=== PATIENT | female | born 1995 | race Caucasian/White ===

== ENCOUNTER 2019-02-20 07:36 | Emergency (ER) | payer SELFPAY ==
[~2019-02-20] VITALS: Ht 160 cm; Wt 59.0 kg
--- OUTSIDE RECORDS SUMMARY | 2019-02-20 07:41 | XMS REPORT ---
Author Author [facility] [employer] [facility] Medical Staff Organization [facility] [employer] [facility] Address [address] [place], [place] [address] Phone [phone] Summary purpose TRANSITION OF CARE AUTO GENERATION Chief Complaint and Reason for Visit Admit Diagnosis 1 FEM GENITAL SYMPTOMS NOS Problem list No authorized problems tracked for continuity of care are available for this visit. Encounters No authorized problems tracked for encounter diagnoses are available for this visit. Medications No home medications recorded for this patient visit Allergies, adverse reactions, alerts Allergen Category Ingredient Status Reaction Severity Onset No known drug allergies No known drug allergies No known drug allergies Confirmed or Verified Immunizations No immunizations recorded for this patient visit Relevant diagnostic tests and/or laboratory data RESULTS Routine Urinalysis [id number]:00:00 Result Normal Range Units Color YELLOW Clarity Clear Specific [place] 1.028 pH 5.5 4.5-8.0 Glucose NEGATIVE Bilirubin NEGATIVE Ketones NEGATIVE Protein NEGATIVE Urobilinogen 0.2 0-0.2 E.U./dL Nitrites NEGATIVE Blood NEGATIVE Leukocytes NEGATIVE WBCs 0-5 RBCs 0-5 Squamous Epithelial 1+ Bacteria Occasional Mucous Occasional Routine Cultures [id number]:30:00 Result Normal Range Units Cervical/ Vaginal/ Urethral See Comments Plate Date and Time 01/30/2015 20:27 SourceVAGINAL CULTURE REPORT Rare Amount Apparent Normal Ange Release Date/Time: 01/31/2015 07:19 CULTURE REPORT Moderate Amount Apparent Normal Ange Release Date/Time: 02/01/2015 07:55 CULTURE REPORT Moderate Amount Apparent Normal Ange Release Date/Time: 02/02/2015 07:44 GRAM STAIN Rare Amount Squamous Epithelial Cells Occasional Gram Positive Evan Release Date/Time: 01/31/2015 09:05 Microbiology [id number]:30:00 Result Normal Range Units LILY No Yeast Seen Wet [place] No Clue Cells, Trichomonas or Yeast Seen. Reference Lab (Sendout) [id number]:30:00 Result Normal Range Units Chlamydia Trachomatis DNA NOT DETECTED NOT DETECTED Neisseria Gonorrhea DNA NOT DETECTED NOT DETECTED Notes SEE NOTE This test was performed using the APTIMA COMBO2 Assay ([employer] The analytical performance characteristics of this assay, when used to test SurePath specimens have been determined by [facility]. TEST PERFORMED AT: [facility] [address] [place] [address] DAYNA JAMES DO,MPH Body Fluid [id number]:00 Result Normal Range Units pH 5.5 4.5-8.0 Reference Lab (Sendout) [id number]:30:00 Result Normal Range Units Chlamydia Trachomatis DNA NOT DETECTED NOT DETECTED Neisseria Gonorrhea DNA NOT DETECTED NOT DETECTED Notes SEE NOTE This test was performed using the APTIMA COMBO2 Assay ([employer] The analytical performance characteristics of this assay, when used to test SurePath specimens have been determined by [facility]. TEST PERFORMED AT: [facility] [address] [place] [address] DAYNA JAMES DO,MPH History of procedures Procedure Code Code Type Description Date Performed Performing Physician 08406 CPT-4 URINALYSIS, AUTO W/SCOPE 01-30-2015 BERNADETTE FELTON 54851 CPT-4 URINE TEST 01-30-2015 BERNADETTE FELTON 71099 CPT-4 SMEAR, WET [place], SALINE/INK 01-30-2015 BERNADETTE FELTON 82932 CPT-4 SMEAR, GRAM STAIN 01-30-2015 BERNADETTE FELTON 65022 CPT-4 CULTURE, BACTERIA, OTHER 01-30-2015 BERNADETTE FELTON 39907 CPT-4 SMEAR, WET MOUNT, SALINE/INK 01-30-2015 BERNADETTE FELTON 55792 CPT-4 CHYLMD TRACH, DNA, AMP PROBE 01-30-2015 BERNADETTE FELTON J2360 CPT-4 ORPHENADRINE INJECTION 01-30-2015 BERNADETTE FELTON J1885 CPT-4 TORADOL SYR 30MG/ML 01-30-2015 BERNADETTE FELTON 06039 CPT-4 EMERGENCY DEPT VISIT 01-30-2015 BERNADETTE FELTON 07214 CPT-4 THER/PROPH/DIAG INJ, SC/IM 01-30-2015 BERNADETTE FELTON 02379 CPT-4 EMERGENCY DEPT VISIT 01-30-2015 BERNADETTE FELTON Functional status Functional Status Finding Observation Time Diet regular 48-34-659700:45 Abdomen Appearance flat 06-75-212876:45 Abdomen soft 58-65-603334:45 Bowel Sounds present 56-69-864705:45 [place] no 78-45-753317:45 Quality sym/unlabored 79-98-220720:45 Cough absent 60-05-904016:45 Airway natural 17-19-119801:45 Oxygen no 79-38-395903:45 Temp >100.4 no 49-95-151887:45 Temp <96.8 no 00-78-152189:45 Chills with rigors no :45 HR > 90bpm no :45 Respirations > 20 no :45 Systolic <90 no :45 headache stiff neck no :45 Rapid Resp no 21-76-811221:45 Nursing Note Discharge instructions reviewed with pt-verbalized understanding. VS obtianed, dc in good condition and ambulatory. 98-76-104595:35 Vital signs Type Value Date Respiration Rate 18breaths per minute 68-61-939826:30 Pulse 83beats per minute :30 Oxygen Saturation 100% 83-28-653001:30 BP Systolic 112mmHg 59-72-515720:30 BP Diastolic 82mmHg 56-23-060841:30 Temperature 98.4F 91-65-939133:30 Height 64inches 46-33-639032:30 Weight 112LB 89-35-282139:30 Social history Type Value Smoking Status CURRENT EVERY DAY SMOKER Treatment Plan No treatment plan text is available for this visit. Hospital discharge instructions Dismissal Condition good Disposition on DC home DC Inst/Educ Give yes Flu Vac none
--- OUTSIDE RECORDS SUMMARY | 2019-02-20 07:41 | XMS REPORT | Clinical Summary ---
Author Author Admin, DIMAS Organization [facility] Address Unknown Phone Unavailable Allergies, Adverse Reactions, Alerts Allergy Name Reaction Description Start Date Severity Status Provider NKDA Critical Active Dinorah Yumiko Conditions or Problems Problem Name Problem Code Onset Date Status Entry Date Provider Comment Standard Description Annotate Shingles 053.9 Active Ousmane MENDIOLA Herpes zoster without mention of complication Amenorrhea, secondary 626.0 Active Alexa Payan MD Absence of menstruation Underweight 783.22 Resolved Dinorah Calderon Underweight Skin rash 782.1 Active Galen Mixon MD Rash and other nonspecific skin eruption Influenza like illness 487.1 Active Suhail Kaye MD Influenza with other respiratory manifestations Acne 706.1 Active Alexa Payan MD Other acne Polycystic ovary syndrome 256.4 Active Alexa Payan MD Polycystic ovaries Contraceptive management V25.09 Active Alexa Payan MD Encounter for other general counseling and advice on contraceptive management BMI 21-21.9 Active Dinorah Calderon Body Mass Index between 19-24, adult ROUTINE GYNECOLOGICAL EXAMINATION V72.31 Active Alexa Payan MD Routine gynecological examination Preconception counseling V26.49 Active Alexa Payan MD Other procreative management counseling and advice Underweight ICD-783.22 Inactive Dinorah Calderon Medication List Medication Instructions Start Date Stop Date Generic Name NDC Status Provider Patient Instruction PROMETRIUM 200 MG ORAL CAPSULE two tabs PO qhs x 10 days PROGESTERONE MICRONIZED 91856342999 Active Alexa Payan MD Active METFORMIN HCL 500 MG ORAL TABLET two tabs PO BID METFORMIN HCL 46701110005 Active Alexa Payan MD Active DIFLUCAN 150 MG ORAL TABLET 1 tablet by mouth daily FLUCONAZOLE 60688708971 No Longer Active Alexa Payan MD Active DOXYCYCLINE MONOHYDRATE 100 MG ORAL CAPSULE 1 tablet daily for cystic acne DOXYCYCLINE MONOHYDRATE 95079142772 No Longer Active Alexa Payan MD Active CONCEPT DHA 53.5-38-1 MG ORAL CAPSULE one tab PO daily PRENAT- [id number]-AY-OMEGA 3 68112465528 Active Alexa Payan MD Active SPRINTEC 28 0.25-35 MG-MCG ORAL TABLET 1 pill by mouth daily 2018 NORGESTIMATE-ETH ESTRADIOL 58772368127 No Longer Active Alexa Payan MD Active PROMETRIUM 200 MG ORAL CAPSULE two tabs PO qhs x 10 days PROGESTERONE MICRONIZED 50469294940 No Longer Active Alexa Payan MD Active PERMETHRIN 5 % EXTERNAL CREAM apply neck to toes tonight and then rinse off in morning. repeat at 7 days PERMETHRIN 31116195034 No Longer Active Suhail Kaye MD Active PREDNISONE 20 MG ORAL TABLET 2 tabs daily for 3 days, 1 tab daily for 3 days, 1/2 tab daily for 2 days PREDNISONE 89018805492 No Longer Active Galen Mixon MD Active PROVERA 10 MG ORAL TABLET 1 tablet by mouth daily MEDROXYPROGESTERONE ACETATE 06103515390 No Longer Active Stefanie Silva LPN Active BENADRYL 25 MG ORAL CAPSULE 1 po q8hr PRN Congestion DIPHENHYDRAMINE HCL 55301118740 No Longer Active Dinorah Calderon Active ACYCLOVIR 800 MG ORAL TABLET 1 tab PO tid x 5 days ACYCLOVIR 37267008276 No Longer Active Dinorah Calderon Active ACYCLOVIR 800 MG ORAL TABLET 1 tab PO tid x 5 days ACYCLOVIR 800 MG ORAL TABLET 227434 ACYCLOVIR Inactive BENADRYL 25 MG ORAL CAPSULE 1 po q8hr PRN Congestion BENADRYL 25 MG ORAL CAPSULE DIPHENHYDRAMINE HCL Inactive PERMETHRIN 5 % EXTERNAL CREAM apply neck to toes tonight and then rinse off in morning. repeat at 7 days PERMETHRIN 5 % EXTERNAL CREAM 204663 PERMETHRIN Inactive SPRINTEC 28 0.25-35 MG-MCG ORAL TABLET 1 pill by mouth daily 2018 SPRINTEC 28 0.25-35 MG-MCG ORAL TABLET 519868 NORGESTIMATE-ETH ESTRADIOL Inactive DOXYCYCLINE MONOHYDRATE 100 MG ORAL CAPSULE 1 tablet daily for cystic acne DOXYCYCLINE MONOHYDRATE 100 MG ORAL CAPSULE 5147347 DOXYCYCLINE MONOHYDRATE Inactive DIFLUCAN 150 MG ORAL TABLET 1 tablet by mouth daily DIFLUCAN 150 MG ORAL TABLET 735075 FLUCONAZOLE Inactive PROVERA 10 MG ORAL TABLET 1 tablet by mouth daily PROVERA 10 MG ORAL TABLET 5715021 MEDROXYPROGESTERONE ACETATE Inactive PREDNISONE 20 MG ORAL TABLET 2 tabs daily for 3 days, 1 tab daily for 3 days, 1/2 tab daily for 2 days PREDNISONE 20 MG ORAL TABLET 704607 PREDNISONE Inactive PROMETRIUM 200 MG ORAL CAPSULE two tabs PO qhs x 10 days PROMETRIUM 200 MG ORAL CAPSULE 257360 PROGESTERONE MICRONIZED Inactive Vital Signs Date Name Value Unit Range Description blood pressure, diastolic 71 mm[Hg] BP [place] blood pressure, systolic 134 mm[Hg] BP sys pulse rate E&M 96 /min Heart rate temperature E&M 99.2 [degF] Body temperature weight E&M 135 [lb_av] Weight Measured blood pressure, diastolic 74 mm[Hg] BP [place] blood pressure, systolic 127 mm[Hg] BP sys height E&M 67 [in_us] Bdy height pulse rate E&M 84 /min Heart rate weight E&M 134 [lb_av] Weight Measured Diagnostic Results Date Name Value Unit Range Description Lab Report: Chlamydia/GC APTIMA/87270 - Lab chlamydia DNA probe NOT DETECTED NOT DETECTED Lab Report: Chlamydia/GC APTIMA/72550 - Microbiology Neisseria gonorrhoeae DNA probe NOT DETECTED NOT DETECTED Office Visit: Amenorrhea - Chemistry human chorionic gonadotropin, urine, qualitative (urine test) Negative Encounters Code Encounter Date Provider Facility CPT-03137 Level 4 Est. Patient 15:18:41 CDT Alexa Payan MD [facility] CPT-25731 Level 4 Est. Patient 16:00:10 CDT Alexa Payan MD [facility] CPT-82090 Level 3 Est. Patient 20:13:14 EQUIPMENT MANAGER Suhail Kaey MD [facility] CPT-72532 Level 3 Est. Patient 15:25:26 EQUIPMENT MANAGER Galen Mixon MD [facility] CPT-56515 Level 3 Est. Patient 18:43:55 CDT Ousmane MENDIOLA [facility] Procedures Code Procedure Name Date Entry Date Standard Description CPT-11950 Prv Med Est Pt 18-39yrs 11:00:53 EQUIPMENT MANAGER CPT-51691 Sono pelvis non OB uterus ovaries cervix - XRAY USE ONLY 15:50:30 CDT CPT-OV Office Visit 12:15:53 CDT
--- OUTSIDE RECORDS SUMMARY | 2019-02-20 07:42 | XMS REPORT | Clinical Summary ---
Author Author Admin, DIMAS Organization [facility] Address Unknown Phone Unavailable Allergies, Adverse Reactions, [...] PO qhs x 10 days PROGESTERONE MICRONIZED 26400316258 Active Alexa Payan MD Active METFORMIN HCL 500 MG ORAL TABLET two tabs PO BID METFORMIN HCL 49183571339 Active Alexa Payan MD Active DIFLUCAN 150 MG ORAL TABLET 1 tablet by mouth daily FLUCONAZOLE 96830821799 No Longer Active Alexa Payan MD Active DOXYCYCLINE MONOHYDRATE 100 MG ORAL CAPSULE 1 tablet daily for cystic acne DOXYCYCLINE MONOHYDRATE 16937409345 No Longer Active Alexa aPyan MD Active CONCEPT DHA 53.5-38-1 MG ORAL CAPSULE one tab PO daily PRENAT- [id number]-VC-OMEGA 3 43636968569 Active Alexa Payan MD Active SPRINTEC 28 0.25-35 MG-MCG ORAL TABLET 1 pill by mouth daily 2018 NORGESTIMATE-ETH ESTRADIOL 65349234638 No Longer Active Alexa Payan MD Active PROMETRIUM 200 MG ORAL CAPSULE two tabs PO qhs x 10 days PROGESTERONE MICRONIZED 65605153338 No Longer Active Alexa Payan MD Active PERMETHRIN 5 % EXTERNAL CREAM apply neck to toes tonight and then rinse off in morning. repeat at 7 days PERMETHRIN 39363235098 No Longer Active Suhail Kaye MD Active PREDNISONE 20 MG ORAL TABLET 2 tabs daily for 3 days, 1 tab daily for 3 days, 1/2 tab daily for 2 days PREDNISONE 65510629418 No Longer Active Galen Mixon MD Active PROVERA 10 MG ORAL TABLET 1 tablet by mouth daily MEDROXYPROGESTERONE ACETATE 54974226648 No Longer Active Stefanie Silva LPN Active BENADRYL 25 MG ORAL CAPSULE 1 po q8hr PRN Congestion DIPHENHYDRAMINE HCL 86170175519 No Longer Active Dinorah Calderon Active ACYCLOVIR 800 MG ORAL TABLET 1 tab PO tid x 5 days ACYCLOVIR 49011245638 No Longer Active Dinorah Yumiko Active ACYCLOVIR 800 MG ORAL TABLET 1 tab PO tid x 5 days ACYCLOVIR 800 MG ORAL TABLET 128618 ACYCLOVIR Inactive BENADRYL 25 MG ORAL CAPSULE 1 po q8hr PRN Congestion BENADRYL 25 MG ORAL CAPSULE DIPHENHYDRAMINE HCL Inactive PERMETHRIN 5 % EXTERNAL CREAM apply neck to toes tonight and then rinse off in morning. repeat at 7 days PERMETHRIN 5 % EXTERNAL CREAM 130185 PERMETHRIN Inactive SPRINTEC 28 0.25-35 MG-MCG ORAL TABLET 1 pill by mouth daily 2018 SPRINTEC 28 0.25-35 MG-MCG ORAL TABLET 503294 NORGESTIMATE-ETH ESTRADIOL Inactive DOXYCYCLINE MONOHYDRATE 100 MG ORAL CAPSULE 1 tablet daily for cystic acne DOXYCYCLINE MONOHYDRATE 100 MG ORAL CAPSULE 6928522 DOXYCYCLINE MONOHYDRATE Inactive DIFLUCAN 150 MG ORAL TABLET 1 tablet by mouth daily DIFLUCAN 150 MG ORAL TABLET 752508 FLUCONAZOLE Inactive PROVERA 10 MG ORAL TABLET 1 tablet by mouth daily PROVERA 10 MG ORAL TABLET 3261655 MEDROXYPROGESTERONE ACETATE Inactive PREDNISONE 20 MG ORAL TABLET 2 tabs daily for 3 days, 1 tab daily for 3 days, 1/2 tab daily for 2 days PREDNISONE 20 MG ORAL TABLET 758952 PREDNISONE Inactive PROMETRIUM 200 MG ORAL CAPSULE two tabs PO qhs x 10 days PROMETRIUM 200 MG ORAL CAPSULE 043361 PROGESTERONE MICRONIZED Inactive Vital Signs Date Name [...] Value Unit Range Description Lab Report: Chlamydia/GC APTIMA/87968 - Lab chlamydia DNA probe NOT DETECTED NOT DETECTED Lab Report: Chlamydia/GC APTIMA/99707 - Microbiology Neisseria gonorrhoeae DNA probe NOT DETECTED NOT DETECTED Office Visit: Amenorrhea - Chemistry human chorionic gonadotropin, urine, qualitative (urine test) Negative Encounters Code Encounter Date Provider Facility CPT-69256 Level 4 Est. Patient 15:18:41 CDT Alexa Payan MD [facility] CPT-89063 Level 4 Est. Patient 16:00:10 CDT Alexa Payan MD [facility] CPT-46051 Level 3 Est. Patient 20:13:14 PRIMARY SCHOOL TEACHER Suhail Kaye MD [facility] CPT-43183 Level 3 Est. Patient 15:25:26 PRIMARY SCHOOL TEACHER Galen Mixon MD [facility] CPT-87228 Level 3 Est. Patient 18:43:55 CDT Ousmane MENDIOLA [facility] -[facility] Procedures Code Procedure Name Date Entry Date Standard Description CPT-68876 Prv Med Est Pt 18-39yrs 11:00:53 PRIMARY SCHOOL TEACHER CPT-00664 Sono pelvis non OB uterus ovaries cervix - XRAY USE ONLY 15:50:30 CDT CPT-OV Office Visit 12:15:53 CDT
--- OUTSIDE RECORDS SUMMARY | 2019-02-20 07:42 | XMS REPORT | Clinical Summary ---
Author Author Admin, DIMAS Organization [facility] Address Unknown Phone Unavailable Allergies, Adverse Reactions, [...] Polycystic ovaries Contraceptive management V25.09 Active Alexa aPyan MD Encounter for other general counseling and [...] PO qhs x 10 days PROGESTERONE MICRONIZED 46676813121 Active Alexa Payan MD Active METFORMIN HCL 500 MG ORAL TABLET two tabs PO BID METFORMIN HCL 22734380809 Active Alexa Payan MD Active DIFLUCAN 150 MG ORAL TABLET 1 tablet by mouth daily FLUCONAZOLE 55250230221 No Longer Active Alexa Payan MD Active DOXYCYCLINE MONOHYDRATE 100 MG ORAL CAPSULE 1 tablet daily for cystic acne DOXYCYCLINE MONOHYDRATE 36251600084 No Longer Active Alexa Payan MD Active CONCEPT DHA 53.5-38-1 MG ORAL CAPSULE one tab PO daily PRENAT- MTFWJ-NZYW-JC-OMEGA 3 09725011577 Active Alexa Payan MD Active SPRINTEC 28 0.25-35 MG-MCG ORAL TABLET 1 pill by mouth daily 2018 NORGESTIMATE-ETH ESTRADIOL 86563702012 No Longer Active Alexa Payan MD Active PROMETRIUM 200 MG ORAL CAPSULE two tabs PO qhs x 10 days PROGESTERONE MICRONIZED 40501441325 No Longer Active Alexa Payan MD Active PERMETHRIN 5 % EXTERNAL CREAM apply neck to toes tonight and then rinse off in morning. repeat at 7 days PERMETHRIN 95809185395 No Longer Active Suhail Kaye MD Active PREDNISONE 20 MG ORAL TABLET 2 tabs daily for 3 days, 1 tab daily for 3 days, 1/2 tab daily for 2 days PREDNISONE 69865945623 No Longer Active Galen Mixon MD Active PROVERA 10 MG ORAL TABLET 1 tablet by mouth daily MEDROXYPROGESTERONE ACETATE 73175432393 No Longer Active Stefanie Silva LPN Active BENADRYL 25 MG ORAL CAPSULE 1 po q8hr PRN Congestion DIPHENHYDRAMINE HCL 79137586743 No Longer Active Dinorah Calderon Active ACYCLOVIR 800 MG ORAL TABLET 1 tab PO tid x 5 days ACYCLOVIR 84606743636 No Longer Active Dinorah Yumiko Active ACYCLOVIR 800 MG ORAL TABLET 1 tab PO tid x 5 days ACYCLOVIR 800 MG ORAL TABLET 632510 ACYCLOVIR Inactive BENADRYL 25 MG ORAL CAPSULE 1 po q8hr PRN Congestion BENADRYL 25 MG ORAL CAPSULE DIPHENHYDRAMINE HCL Inactive PERMETHRIN 5 % EXTERNAL CREAM apply neck to toes tonight and then rinse off in morning. repeat at 7 days PERMETHRIN 5 % EXTERNAL CREAM 103954 PERMETHRIN Inactive SPRINTEC 28 0.25-35 MG-MCG ORAL TABLET 1 pill by mouth daily 2018 SPRINTEC 28 0.25-35 MG-MCG ORAL TABLET 032852 NORGESTIMATE-ETH ESTRADIOL Inactive DOXYCYCLINE MONOHYDRATE 100 MG ORAL CAPSULE 1 tablet daily for cystic acne DOXYCYCLINE MONOHYDRATE 100 MG ORAL CAPSULE 8484934 DOXYCYCLINE MONOHYDRATE Inactive DIFLUCAN 150 MG ORAL TABLET 1 tablet by mouth daily DIFLUCAN 150 MG ORAL TABLET 435005 FLUCONAZOLE Inactive PROVERA 10 MG ORAL TABLET 1 tablet by mouth daily PROVERA 10 MG ORAL TABLET 6398384 MEDROXYPROGESTERONE ACETATE Inactive PREDNISONE 20 MG ORAL TABLET 2 tabs daily for 3 days, 1 tab daily for 3 days, 1/2 tab daily for 2 days PREDNISONE 20 MG ORAL TABLET 045204 PREDNISONE Inactive PROMETRIUM 200 MG ORAL CAPSULE two tabs PO qhs x 10 days PROMETRIUM 200 MG ORAL CAPSULE 465184 PROGESTERONE MICRONIZED Inactive Vital Signs Date Name [...] Value Unit Range Description Lab Report: Chlamydia/GC APTIMA/22892 - Lab chlamydia DNA probe NOT DETECTED NOT DETECTED Lab Report: Chlamydia/GC APTIMA/28912 - Microbiology Neisseria gonorrhoeae DNA probe NOT DETECTED NOT DETECTED Office Visit: Amenorrhea - Chemistry human chorionic gonadotropin, urine, qualitative (urine test) Negative Encounters Code Encounter Date Provider Facility CPT-29720 Level 4 Est. Patient 15:18:41 CDT Alexa Payan MD [facility] CPT-65006 Level 4 Est. Patient 16:00:10 CDT Alexa Payan MD [facility] CPT-85862 Level 3 Est. Patient 20:13:14 TECHNOLOGY SUPPORT ANALYST Suhail Kaye MD [facility] CPT-81720 Level 3 Est. Patient 15:25:26 TECHNOLOGY SUPPORT ANALYST Galen Mixon MD [facility] CPT-15704 Level 3 Est. Patient 18:43:55 CDT Ousmane MENDIOLA [facility] -[facility] Procedures Code Procedure Name Date Entry Date Standard Description CPT-12088 Prv Med Est Pt 18-39yrs 11:00:53 TECHNOLOGY SUPPORT ANALYST CPT-10849 Sono pelvis non OB uterus ovaries cervix - XRAY USE ONLY 15:50:30 CDT CPT-OV Office Visit 12:15:53 CDT
--- OUTSIDE RECORDS SUMMARY | 2019-02-20 07:42 | XMS REPORT | Clinical Summary ---
Author Author Admin, DIMAS Organization [facility] Address Unknown Phone Unavailable Allergies, Adverse Reactions, Alerts Allergy Name Reaction Description Start Date Severity Status Provider NKDA Critical Active Dinorah Calderon Conditions or Problems Problem Name Problem Code [...] PO qhs x 10 days PROGESTERONE MICRONIZED 94725129708 Active Alexa Payan MD Active METFORMIN HCL 500 MG ORAL TABLET two tabs PO BID METFORMIN HCL 61427594312 Active Alexa Payan MD Active DIFLUCAN 150 MG ORAL TABLET 1 tablet by mouth daily FLUCONAZOLE 25028158466 No Longer Active Alexa Payan MD Active DOXYCYCLINE MONOHYDRATE 100 MG ORAL CAPSULE 1 tablet daily for cystic acne DOXYCYCLINE MONOHYDRATE 96643127179 No Longer Active Alexa Payan MD Active CONCEPT DHA 53.5-38-1 MG ORAL CAPSULE one tab PO daily PRENAT- JQUSM-JEKW-JT-OMEGA 3 39595565429 Active Alexa Payan MD Active SPRINTEC 28 0.25-35 MG-MCG ORAL TABLET 1 pill by mouth daily 2018 NORGESTIMATE-ETH ESTRADIOL 17527468553 No Longer Active Alexa Payan MD Active PROMETRIUM 200 MG ORAL CAPSULE two tabs PO qhs x 10 days PROGESTERONE MICRONIZED 24400262424 No Longer Active Alexa Payan MD Active PERMETHRIN 5 % EXTERNAL CREAM apply neck to toes tonight and then rinse off in morning. repeat at 7 days PERMETHRIN 89216120430 No Longer Active Suhail Kaye MD Active PREDNISONE 20 MG ORAL TABLET 2 tabs daily for 3 days, 1 tab daily for 3 days, 1/2 tab daily for 2 days PREDNISONE 77093058554 No Longer Active Galen Mixon MD Active PROVERA 10 MG ORAL TABLET 1 tablet by mouth daily MEDROXYPROGESTERONE ACETATE 31903408250 No Longer Active Stefanie Silva LPN Active BENADRYL 25 MG ORAL CAPSULE 1 po q8hr PRN Congestion DIPHENHYDRAMINE HCL 67235165834 No Longer Active Dinorah Calderon Active ACYCLOVIR 800 MG ORAL TABLET 1 tab PO tid x 5 days ACYCLOVIR 92320914752 No Longer Active Dinorah Calderon Active ACYCLOVIR 800 MG ORAL TABLET 1 tab PO tid x 5 days ACYCLOVIR 800 MG ORAL TABLET 991785 ACYCLOVIR Inactive BENADRYL 25 MG ORAL CAPSULE 1 po q8hr PRN Congestion BENADRYL 25 MG ORAL CAPSULE DIPHENHYDRAMINE HCL Inactive PERMETHRIN 5 % EXTERNAL CREAM apply neck to toes tonight and then rinse off in morning. repeat at 7 days PERMETHRIN 5 % EXTERNAL CREAM 492790 PERMETHRIN Inactive SPRINTEC 28 0.25-35 MG-MCG ORAL TABLET 1 pill by mouth daily 2018 SPRINTEC 28 0.25-35 MG-MCG ORAL TABLET 194415 NORGESTIMATE-ETH ESTRADIOL Inactive DOXYCYCLINE MONOHYDRATE 100 MG ORAL CAPSULE 1 tablet daily for cystic acne DOXYCYCLINE MONOHYDRATE 100 MG ORAL CAPSULE 2190884 DOXYCYCLINE MONOHYDRATE Inactive DIFLUCAN 150 MG ORAL TABLET 1 tablet by mouth daily DIFLUCAN 150 MG ORAL TABLET 694705 FLUCONAZOLE Inactive PROVERA 10 MG ORAL TABLET 1 tablet by mouth daily PROVERA 10 MG ORAL TABLET 2938170 MEDROXYPROGESTERONE ACETATE Inactive PREDNISONE 20 MG ORAL TABLET 2 tabs daily for 3 days, 1 tab daily for 3 days, 1/2 tab daily for 2 days PREDNISONE 20 MG ORAL TABLET 604926 PREDNISONE Inactive PROMETRIUM 200 MG ORAL CAPSULE two tabs PO qhs x 10 days PROMETRIUM 200 MG ORAL CAPSULE 562927 PROGESTERONE MICRONIZED Inactive Vital Signs Date Name [...] Value Unit Range Description Lab Report: Chlamydia/GC APTIMA/05564 - Lab chlamydia DNA probe NOT DETECTED NOT DETECTED Lab Report: Chlamydia/GC APTIMA/62430 - Microbiology Neisseria gonorrhoeae DNA probe NOT DETECTED NOT DETECTED Office Visit: Amenorrhea - Chemistry human chorionic gonadotropin, urine, qualitative (urine test) Negative Encounters Code Encounter Date Provider Facility CPT-00198 Level 4 Est. Patient 15:18:41 CDT Alexa Payan MD [facility] CPT-19301 Level 4 Est. Patient 16:00:10 CDT Alexa Payan MD [facility] CPT-46513 Level 3 Est. Patient 20:13:14 NURSE STAFF Suhail Kaye MD [facility] CPT-55509 Level 3 Est. Patient 15:25:26 NURSE STAFF Galen Mixon MD [facility] CPT-94473 Level 3 Est. Patient 18:43:55 CDT Ousmane MENDIOLA [facility] -[facility] Procedures Code Procedure Name Date Entry Date Standard Description CPT-48870 Prv Med Est Pt 18-39yrs 11:00:53 NURSE STAFF CPT-83034 Sono pelvis non OB uterus ovaries cervix - XRAY USE ONLY 15:50:30 CDT CPT-OV Office Visit 12:15:53 CDT
--- OUTSIDE RECORDS SUMMARY | 2019-02-20 07:42 | XMS REPORT | Clinical Summary ---
Author Author Admin, E Organization [facility] Address Unknown Phone Unavailable Allergies, Adverse [...] PO qhs x 10 days PROGESTERONE MICRONIZED 64038957817 Active Alexa Payan MD Active METFORMIN HCL 500 MG ORAL TABLET two tabs PO BID METFORMIN HCL 15306315914 Active Alexa Payan MD Active DIFLUCAN 150 MG ORAL TABLET 1 tablet by mouth daily FLUCONAZOLE 28723068954 No Longer Active Alexa Payan MD Active DOXYCYCLINE MONOHYDRATE 100 MG ORAL CAPSULE 1 tablet daily for cystic acne DOXYCYCLINE MONOHYDRATE 46192172073 No Longer Active Alexa Payan MD Active CONCEPT DHA 53.5-38-1 MG ORAL CAPSULE one tab PO daily PRENAT- [id number]-NT-OMEGA 3 08568307895 Active Alexa Payan MD Active SPRINTEC 28 0.25-35 MG-MCG ORAL TABLET 1 pill by mouth daily 2018 NORGESTIMATE-ETH ESTRADIOL 27096585387 No Longer Active Alexa Payan MD Active PROMETRIUM 200 MG ORAL CAPSULE two tabs PO qhs x 10 days PROGESTERONE MICRONIZED 63318836180 No Longer Active Alexa Payan MD Active PERMETHRIN 5 % EXTERNAL CREAM apply neck to toes tonight and then rinse off in morning. repeat at 7 days PERMETHRIN 75469070174 No Longer Active Suhail Kaye MD Active PREDNISONE 20 MG ORAL TABLET 2 tabs daily for 3 days, 1 tab daily for 3 days, 1/2 tab daily for 2 days PREDNISONE 61672104391 No Longer Active Galen Mixon MD Active PROVERA 10 MG ORAL TABLET 1 tablet by mouth daily MEDROXYPROGESTERONE ACETATE 85137320610 No Longer Active Stefanie Silva LPN Active BENADRYL 25 MG ORAL CAPSULE 1 po q8hr PRN Congestion DIPHENHYDRAMINE HCL 93676820968 No Longer Active Dinorah Calderon Active ACYCLOVIR 800 MG ORAL TABLET 1 tab PO tid x 5 days ACYCLOVIR 97719024551 No Longer Active Dinorah Calderon Active ACYCLOVIR 800 MG ORAL TABLET 1 tab PO tid x 5 days ACYCLOVIR 800 MG ORAL TABLET 260011 ACYCLOVIR Inactive BENADRYL 25 MG ORAL CAPSULE 1 po q8hr PRN Congestion BENADRYL 25 MG ORAL CAPSULE DIPHENHYDRAMINE HCL Inactive PERMETHRIN 5 % EXTERNAL CREAM apply neck to toes tonight and then rinse off in morning. repeat at 7 days PERMETHRIN 5 % EXTERNAL CREAM 007659 PERMETHRIN Inactive SPRINTEC 28 0.25-35 MG-MCG ORAL TABLET 1 pill by mouth daily 2018 SPRINTEC 28 0.25-35 MG-MCG ORAL TABLET 459939 NORGESTIMATE-ETH ESTRADIOL Inactive DOXYCYCLINE MONOHYDRATE 100 MG ORAL CAPSULE 1 tablet daily for cystic acne DOXYCYCLINE MONOHYDRATE 100 MG ORAL CAPSULE 1486365 DOXYCYCLINE MONOHYDRATE Inactive DIFLUCAN 150 MG ORAL TABLET 1 tablet by mouth daily DIFLUCAN 150 MG ORAL TABLET 536963 FLUCONAZOLE Inactive PROVERA 10 MG ORAL TABLET 1 tablet by mouth daily PROVERA 10 MG ORAL TABLET 5469984 MEDROXYPROGESTERONE ACETATE Inactive PREDNISONE 20 MG ORAL TABLET 2 tabs daily for 3 days, 1 tab daily for 3 days, 1/2 tab daily for 2 days PREDNISONE 20 MG ORAL TABLET 483439 PREDNISONE Inactive PROMETRIUM 200 MG ORAL CAPSULE two tabs PO qhs x 10 days PROMETRIUM 200 MG ORAL CAPSULE 390974 PROGESTERONE MICRONIZED Inactive Vital Signs Date Name [...] Value Unit Range Description Lab Report: Chlamydia/GC APTIMA/81686 - Lab chlamydia DNA probe NOT DETECTED NOT DETECTED Lab Report: Chlamydia/GC APTIMA/97312 - Microbiology Neisseria gonorrhoeae DNA probe NOT DETECTED NOT DETECTED Office Visit: Amenorrhea - Chemistry human chorionic gonadotropin, urine, qualitative (urine test) Negative Encounters Code Encounter Date Provider Facility CPT-58630 Level 4 Est. Patient 15:18:41 CDT Alexa Payan MD [facility] CPT-93219 Level 4 Est. Patient 16:00:10 CDT Alexa Payan MD [facility] CPT-49307 Level 3 Est. Patient 20:13:14 BOLT CUTTER Suhail Kaye MD [facility] CPT-14564 Level 3 Est. Patient 15:25:26 BOLT CUTTER Galen Mixon MD [facility] CPT-77555 Level 3 Est. Patient 18:43:55 CDT Ousmane MENDIOLA [facility] Procedures Code Procedure Name Date Entry Date Standard Description CPT-65111 Prv Med Est Pt 18-39yrs 11:00:53 BOLT CUTTER CPT-80717 Sono pelvis non OB uterus ovaries cervix - XRAY USE ONLY 15:50:30 CDT CPT-OV Office Visit 12:15:53 CDT
--- OUTSIDE RECORDS SUMMARY | 2019-02-20 07:43 | XMS REPORT | Clinical Summary ---
Author Author Admin, DIMAS Organization [facility] Address Unknown Phone Unavailable Allergies, Adverse Reactions, [...] Generic Name NDC Status Provider Patient Instruction DIFLUCAN 150 MG ORAL TABLET 1 tablet by mouth daily FLUCONAZOLE 07554173518 Active Stefanie Silva LPN Active DOXYCYCLINE MONOHYDRATE 100 MG ORAL CAPSULE 1 tablet daily for cystic acne DOXYCYCLINE MONOHYDRATE 15509904542 No Longer Active Alexa Payan MD Active CONCEPT DHA 53.5-38-1 MG ORAL CAPSULE one tab PO daily АЛЕКСАНДРAT- QZWUR-XVOY-IS-OMEGA 3 70969823730 Active Alexa Payan MD Active METFORMIN HCL 500 MG ORAL TABLET one tab PO qhs x 1 week, then one tab PO BID x 1 week, then two tabs PO BID METFORMIN HCL 15062862115 Active Alexa Payan MD Active SPRINTEC 28 0.25-35 MG-MCG ORAL TABLET 1 pill by mouth daily 2018 NORGESTIMATE-ETH ESTRADIOL 91589290285 No Longer Active Alexa Payan MD Active PROMETRIUM 200 MG ORAL CAPSULE two tabs PO qhs x 10 days PROGESTERONE MICRONIZED 53325173217 No Longer Active Alexa Payan MD Active PERMETHRIN 5 % EXTERNAL CREAM apply neck to toes tonight and then rinse off in morning. repeat at 7 days PERMETHRIN 38419340678 No Longer Active Suhail Kaye MD Active PREDNISONE 20 MG ORAL TABLET 2 tabs daily for 3 days, 1 tab daily for 3 days, 1/2 tab daily for 2 days PREDNISONE 49996838347 No Longer Active Galen Mixon MD Active PROVERA 10 MG ORAL TABLET 1 tablet by mouth daily MEDROXYPROGESTERONE ACETATE 81757809179 No Longer Active Stefanie Silva LPN Active BENADRYL 25 MG ORAL CAPSULE 1 po q8hr PRN Congestion DIPHENHYDRAMINE HCL 44860729266 No Longer Active Dinorahleticia Calderon Active ACYCLOVIR 800 MG ORAL TABLET 1 tab PO tid x 5 days ACYCLOVIR 58194052137 No Longer Active Dinorah Yumiko Active ACYCLOVIR 800 MG ORAL TABLET 1 tab PO tid x 5 days ACYCLOVIR 800 MG ORAL TABLET 483092 ACYCLOVIR Inactive BENADRYL 25 MG ORAL CAPSULE 1 po q8hr PRN Congestion BENADRYL 25 MG ORAL CAPSULE DIPHENHYDRAMINE HCL Inactive PERMETHRIN 5 % EXTERNAL CREAM apply neck to toes tonight and then rinse off in morning. repeat at 7 days PERMETHRIN 5 % EXTERNAL CREAM 177645 PERMETHRIN Inactive SPRINTEC 28 0.25-35 MG-MCG ORAL TABLET 1 pill by mouth daily 2018 SPRINTEC 28 0.25-35 MG-MCG ORAL TABLET 565237 NORGESTIMATE-ETH ESTRADIOL Inactive DOXYCYCLINE MONOHYDRATE 100 MG ORAL CAPSULE 1 tablet daily for cystic acne DOXYCYCLINE MONOHYDRATE 100 MG ORAL CAPSULE 7532808 DOXYCYCLINE MONOHYDRATE Inactive PROVERA 10 MG ORAL TABLET 1 tablet by mouth daily PROVERA 10 MG ORAL TABLET 7654832 MEDROXYPROGESTERONE ACETATE Inactive PREDNISONE 20 MG ORAL TABLET 2 tabs daily for 3 days, 1 tab daily for 3 days, 1/2 tab daily for 2 days PREDNISONE 20 MG ORAL TABLET 510898 PREDNISONE Inactive PROMETRIUM 200 MG ORAL CAPSULE two tabs PO qhs x 10 days PROMETRIUM 200 MG ORAL CAPSULE 052450 PROGESTERONE MICRONIZED Inactive Vital Signs Date Name Value Unit Range Description blood pressure, diastolic 74 mm[Hg] BP [place] blood pressure, systolic 127 mm[Hg] BP sys height E&M 67 [in_us] Bdy height pulse rate E&M 84 /min Heart rate weight E&M 134 [lb_av] Weight Measured Diagnostic Results Date Name Value Unit Range Description Lab Report: Chlamydia/GC APTIMA/44937 - Lab chlamydia DNA probe NOT DETECTED NOT DETECTED Lab Report: Chlamydia/GC APTIMA/88757 - Microbiology Neisseria gonorrhoeae DNA probe NOT DETECTED NOT DETECTED Encounters Code Encounter Date Provider Facility CPT-73963 Level 4 Est. Patient 15:18:41 CDT Alexa Payan MD [facility] CPT-82470 Level 4 Est. Patient 16:00:10 CDT Alexa Payan MD [facility] CPT-43793 Level 3 Est. 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 Patient 15:25:26 SUPERVISOR FORMING AND TEMPERING Galen Mixon MD [facility] CPT-03182 Level 3 Est. Patient 18:43:55 CDT Ousmane MENDIOLA [facility] Procedures Code Procedure Name Date Entry Date Standard Description CPT-44606 Prv Med Est Pt 18-39yrs 11:00:53 SUPERVISOR FORMING AND TEMPERING CPT-98846 Sono pelvis non OB uterus ovaries cervix - XRAY USE ONLY 15:50:30 CDT CPT-OV Office Visit 12:15:53 CDT
--- OUTSIDE RECORDS SUMMARY | 2019-02-20 07:43 | XMS REPORT | Clinical Summary ---
Author Author Admin, DIMAS Organization [facility] Address Unknown Phone Unavailable Allergies, Adverse [...] TABLET 1 tablet by mouth daily FLUCONAZOLE 76569894436 Active Stefanie Silva LPN Active DOXYCYCLINE MONOHYDRATE 100 MG ORAL CAPSULE 1 tablet daily for cystic acne DOXYCYCLINE MONOHYDRATE 98504533312 No Longer Active Alexa Payan MD Active CONCEPT DHA 53.5-38-1 MG ORAL CAPSULE one tab PO daily [facility]- [id number]-AMZG-MR-OMEGA 3 84261464785 Active Alexa Payan MD Active METFORMIN HCL 500 MG ORAL TABLET one tab PO qhs x 1 week, then one tab PO BID x 1 week, then two tabs PO BID METFORMIN HCL 12275948047 Active Alexa Payan MD Active SPRINTEC 28 0.25-35 MG-MCG ORAL TABLET 1 pill by mouth daily 2018 NORGESTIMATE-ETH ESTRADIOL 09028635319 No Longer Active Alexa Payan MD Active PROMETRIUM 200 MG ORAL CAPSULE two tabs PO qhs x 10 days PROGESTERONE MICRONIZED 30525130379 No Longer Active Alexa Payan MD Active PERMETHRIN 5 % EXTERNAL CREAM apply neck to toes tonight and then rinse off in morning. repeat at 7 days PERMETHRIN 47789450253 No Longer Active Suhail Kaye MD Active PREDNISONE 20 MG ORAL TABLET 2 tabs daily for 3 days, 1 tab daily for 3 days, 1/2 tab daily for 2 days PREDNISONE 22886022914 No Longer Active Galen Mixon MD Active PROVERA 10 MG ORAL TABLET 1 tablet by mouth daily MEDROXYPROGESTERONE ACETATE 21616238494 No Longer Active Stefanie Silva LPN Active BENADRYL 25 MG ORAL CAPSULE 1 po q8hr PRN Congestion DIPHENHYDRAMINE HCL 87991922968 No Longer Active Dinorah Calderon Active ACYCLOVIR 800 MG ORAL TABLET 1 tab PO tid x 5 days ACYCLOVIR 38662241264 No Longer Active Dinorahleticia Calderon Active ACYCLOVIR 800 MG ORAL TABLET 1 tab PO tid x 5 days ACYCLOVIR 800 MG ORAL TABLET 039013 ACYCLOVIR Inactive BENADRYL 25 MG ORAL CAPSULE 1 po q8hr PRN Congestion BENADRYL 25 MG ORAL CAPSULE DIPHENHYDRAMINE HCL Inactive PERMETHRIN 5 % EXTERNAL CREAM apply neck to toes tonight and then rinse off in morning. repeat at 7 days PERMETHRIN 5 % EXTERNAL CREAM 948915 PERMETHRIN Inactive SPRINTEC 28 0.25-35 MG-MCG ORAL TABLET 1 pill by mouth daily 2018 SPRINTEC 28 0.25-35 MG-MCG ORAL TABLET 861981 NORGESTIMATE-ETH ESTRADIOL Inactive DOXYCYCLINE MONOHYDRATE 100 MG ORAL CAPSULE 1 tablet daily for cystic acne DOXYCYCLINE MONOHYDRATE 100 MG ORAL CAPSULE 8545095 DOXYCYCLINE MONOHYDRATE Inactive PROVERA 10 MG ORAL TABLET 1 tablet by mouth daily PROVERA 10 MG ORAL TABLET 3401187 MEDROXYPROGESTERONE ACETATE Inactive PREDNISONE 20 MG ORAL TABLET 2 tabs daily for 3 days, 1 tab daily for 3 days, 1/2 tab daily for 2 days PREDNISONE 20 MG ORAL TABLET 910236 PREDNISONE Inactive PROMETRIUM 200 MG ORAL CAPSULE two tabs PO qhs x 10 days PROMETRIUM 200 MG ORAL CAPSULE 441337 PROGESTERONE MICRONIZED Inactive Vital Signs Date Name Value Unit Range Description blood pressure, diastolic 74 mm[Hg] BP [place] blood pressure, systolic 127 mm[Hg] BP sys height E&M 67 [in_us] Bdy height pulse rate E&M 84 /min Heart rate weight E&M 134 [lb_av] Weight Measured Diagnostic Results Date Name Value Unit Range Description Lab Report: Chlamydia/GC APTIMA/29371 - Lab chlamydia DNA probe NOT DETECTED NOT DETECTED Lab Report: Chlamydia/GC APTIMA/56824 - Microbiology Neisseria gonorrhoeae DNA probe NOT DETECTED NOT DETECTED Encounters Code Encounter Date Provider Facility CPT-46532 Level 4 Est. Patient 15:18:41 CDT Alexa Payan MD [facility] CPT-33731 Level 4 Est. Patient 16:00:10 CDT Alexa Payan MD [facility] CPT-04996 Level 3 Est. Patient 20:13:14 FIGURINE MAKER Suhail Kaye MD [facility] CPT-64314 Level 3 Est. Patient 15:25:26 FIGURINE MAKER Galen Mixon MD [facility] CPT-95012 Level 3 Est. Patient 18:43:[address] [facility] Procedures Code Procedure Name Date Entry Date Standard Description CPT-20253 Prv Med Est Pt 18-39yrs 11:00:53 FIGURINE MAKER CPT-36814 Sono pelvis non OB uterus ovaries cervix - XRAY USE ONLY 15:50:30 CDT CPT-OV Office Visit 12:15:53 CDT
--- OUTSIDE RECORDS SUMMARY | 2019-02-20 07:43 | XMS REPORT | Clinical Summary ---
Author Author Admin, DIMAS Organization [facility] Address Unknown Phone Unavailable Allergies, Adverse Reactions, [...] TABLET 1 tablet by mouth daily FLUCONAZOLE 42355493186 Active Stefanie Silva LPN Active DOXYCYCLINE MONOHYDRATE 100 MG ORAL CAPSULE 1 tablet daily for cystic acne DOXYCYCLINE MONOHYDRATE 22987398552 No Longer Active Alexa Payan MD Active CONCEPT DHA 53.5-38-1 MG ORAL CAPSULE one tab PO daily АЛЕКСАНДРAT- OLVGL-QWEJ-AY-OMEGA 3 96381477952 Active Alexa Payan MD Active METFORMIN HCL 500 MG ORAL TABLET one tab PO qhs x 1 week, then one tab PO BID x 1 week, then two tabs PO BID METFORMIN HCL 89488678069 Active Alexa Payan MD Active SPRINTEC 28 0.25-35 MG-MCG ORAL TABLET 1 pill by mouth daily 2018 NORGESTIMATE-ETH ESTRADIOL 93134691706 No Longer Active Alexa Payan MD Active PROMETRIUM 200 MG ORAL CAPSULE two tabs PO qhs x 10 days PROGESTERONE MICRONIZED 17197647824 No Longer Active Alexa Payan MD Active PERMETHRIN 5 % EXTERNAL CREAM apply neck to toes tonight and then rinse off in morning. repeat at 7 days PERMETHRIN 74429798061 No Longer Active Suhail Kaye MD Active PREDNISONE 20 MG ORAL TABLET 2 tabs daily for 3 days, 1 tab daily for 3 days, 1/2 tab daily for 2 days PREDNISONE 70904953755 No Longer Active Galen Mixon MD Active PROVERA 10 MG ORAL TABLET 1 tablet by mouth daily MEDROXYPROGESTERONE ACETATE 25531190576 No Longer Active Stefanie Silva LPN Active BENADRYL 25 MG ORAL CAPSULE 1 po q8hr PRN Congestion DIPHENHYDRAMINE HCL 67780957782 No Longer Active Dinorah Yumiko Active ACYCLOVIR 800 MG ORAL TABLET 1 tab PO tid x 5 days ACYCLOVIR 84631998026 No Longer Active Dinorah Yumiko Active ACYCLOVIR 800 MG ORAL TABLET 1 tab PO tid x 5 days ACYCLOVIR 800 MG ORAL TABLET 517993 ACYCLOVIR Inactive BENADRYL 25 MG ORAL CAPSULE 1 po q8hr PRN Congestion BENADRYL 25 MG ORAL CAPSULE DIPHENHYDRAMINE HCL Inactive PERMETHRIN 5 % EXTERNAL CREAM apply neck to toes tonight and then rinse off in morning. repeat at 7 days PERMETHRIN 5 % EXTERNAL CREAM 515099 PERMETHRIN Inactive SPRINTEC 28 0.25-35 MG-MCG ORAL TABLET 1 pill by mouth daily 2018 SPRINTEC 28 0.25-35 MG-MCG ORAL TABLET 298903 NORGESTIMATE-ETH ESTRADIOL Inactive DOXYCYCLINE MONOHYDRATE 100 MG ORAL CAPSULE 1 tablet daily for cystic acne DOXYCYCLINE MONOHYDRATE 100 MG ORAL CAPSULE 5427313 DOXYCYCLINE MONOHYDRATE Inactive PROVERA 10 MG ORAL TABLET 1 tablet by mouth daily PROVERA 10 MG ORAL TABLET 1338988 MEDROXYPROGESTERONE ACETATE Inactive PREDNISONE 20 MG ORAL TABLET 2 tabs daily for 3 days, 1 tab daily for 3 days, 1/2 tab daily for 2 days PREDNISONE 20 MG ORAL TABLET 304543 PREDNISONE Inactive PROMETRIUM 200 MG ORAL CAPSULE two tabs PO qhs x 10 days PROMETRIUM 200 MG ORAL CAPSULE 225557 PROGESTERONE MICRONIZED Inactive Vital Signs Date Name Value Unit Range Description blood pressure, diastolic 74 mm[Hg] BP [place] blood pressure, systolic 127 mm[Hg] BP sys height E&M 67 [in_us] Bdy height pulse rate E&M 84 /min Heart rate weight E&M 134 [lb_av] Weight Measured Diagnostic Results Date Name Value Unit Range Description Lab Report: Chlamydia/GC APTIMA/30802 - Lab chlamydia DNA probe NOT DETECTED NOT DETECTED Lab Report: Chlamydia/GC APTIMA/04662 - Microbiology Neisseria gonorrhoeae DNA probe NOT DETECTED NOT DETECTED Encounters Code Encounter Date Provider Facility CPT-02633 Level 4 Est. Patient 15:18:41 CDT Alexa Payan MD [facility] CPT-82265 Level 4 Est. Patient 16:00:10 CDT Alexa Payan MD [facility] CPT-62670 Level 3 Est. 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 Patient 15:25:26 MILL TENDER SECOND OPERATOR Galen Mixon MD [facility] CPT-86547 Level 3 Est. Patient 18:43:55 CDT Ousmane MENDIOLA [facility] Procedures Code Procedure Name Date Entry Date Standard Description CPT-24801 Prv Med Est Pt 18-39yrs 11:00:53 MILL TENDER SECOND OPERATOR CPT-69404 Sono pelvis non OB uterus ovaries cervix - XRAY USE ONLY 15:50:30 CDT CPT-OV Office Visit 12:15:53 CDT
--- OUTSIDE RECORDS SUMMARY | 2019-02-20 07:43 | XMS REPORT | Clinical Summary ---
Author Author Admin, E Organization [facility] Address Unknown Phone Unavailable Allergies, Adverse Reactions, [...] PO qhs x 10 days PROGESTERONE MICRONIZED 32895050437 Active Alexa Payan MD Active METFORMIN HCL 500 MG ORAL TABLET two tabs PO BID METFORMIN HCL 95525681275 Active Alexa Payan MD Active DIFLUCAN 150 MG ORAL TABLET 1 tablet by mouth daily FLUCONAZOLE 36544144670 No Longer Active Alexa Payan MD Active DOXYCYCLINE MONOHYDRATE 100 MG ORAL CAPSULE 1 tablet daily for cystic acne DOXYCYCLINE MONOHYDRATE 79025681650 No Longer Active Alexa Payan MD Active CONCEPT DHA 53.5-38-1 MG ORAL CAPSULE one tab PO daily PRENAT- XBGVZ-BRHK-HV-OMEGA 3 46936051095 Active Alexa Payan MD Active SPRINTEC 28 0.25-35 MG-MCG ORAL TABLET 1 pill by mouth daily 2018 NORGESTIMATE-ETH ESTRADIOL 32989450127 No Longer Active Alexa Payan MD Active PROMETRIUM 200 MG ORAL CAPSULE two tabs PO qhs x 10 days PROGESTERONE MICRONIZED 66144536943 No Longer Active Alexa Payan MD Active PERMETHRIN 5 % EXTERNAL CREAM apply neck to toes tonight and then rinse off in morning. repeat at 7 days PERMETHRIN 08484304895 No Longer Active Suhail Kaye MD Active PREDNISONE 20 MG ORAL TABLET 2 tabs daily for 3 days, 1 tab daily for 3 days, 1/2 tab daily for 2 days PREDNISONE 08585979301 No Longer Active Galen Mixon MD Active PROVERA 10 MG ORAL TABLET 1 tablet by mouth daily MEDROXYPROGESTERONE ACETATE 85812321996 No Longer Active Stefanie Silva LPN Active BENADRYL 25 MG ORAL CAPSULE 1 po q8hr PRN Congestion DIPHENHYDRAMINE HCL 18221088887 No Longer Active Dinorah Calderon Active ACYCLOVIR 800 MG ORAL TABLET 1 tab PO tid x 5 days ACYCLOVIR 34607162051 No Longer Active Dinorah Calderon Active ACYCLOVIR 800 MG ORAL TABLET 1 tab PO tid x 5 days ACYCLOVIR 800 MG ORAL TABLET 462874 ACYCLOVIR Inactive BENADRYL 25 MG ORAL CAPSULE 1 po q8hr PRN Congestion BENADRYL 25 MG ORAL CAPSULE DIPHENHYDRAMINE HCL Inactive PERMETHRIN 5 % EXTERNAL CREAM apply neck to toes tonight and then rinse off in morning. repeat at 7 days PERMETHRIN 5 % EXTERNAL CREAM 120658 PERMETHRIN Inactive SPRINTEC 28 0.25-35 MG-MCG ORAL TABLET 1 pill by mouth daily 2018 SPRINTEC 28 0.25-35 MG-MCG ORAL TABLET 802923 NORGESTIMATE-ETH ESTRADIOL Inactive DOXYCYCLINE MONOHYDRATE 100 MG ORAL CAPSULE 1 tablet daily for cystic acne DOXYCYCLINE MONOHYDRATE 100 MG ORAL CAPSULE 1081933 DOXYCYCLINE MONOHYDRATE Inactive DIFLUCAN 150 MG ORAL TABLET 1 tablet by mouth daily DIFLUCAN 150 MG ORAL TABLET 548895 FLUCONAZOLE Inactive PROVERA 10 MG ORAL TABLET 1 tablet by mouth daily PROVERA 10 MG ORAL TABLET 6225414 MEDROXYPROGESTERONE ACETATE Inactive PREDNISONE 20 MG ORAL TABLET 2 tabs daily for 3 days, 1 tab daily for 3 days, 1/2 tab daily for 2 days PREDNISONE 20 MG ORAL TABLET 236345 PREDNISONE Inactive PROMETRIUM 200 MG ORAL CAPSULE two tabs PO qhs x 10 days PROMETRIUM 200 MG ORAL CAPSULE 194933 PROGESTERONE MICRONIZED Inactive Vital Signs Date Name [...] Value Unit Range Description Lab Report: Chlamydia/GC APTIMA/74755 - Lab chlamydia DNA probe NOT DETECTED NOT DETECTED Lab Report: Chlamydia/GC APTIMA/32123 - Microbiology Neisseria gonorrhoeae DNA probe NOT DETECTED NOT DETECTED Office Visit: Amenorrhea - Chemistry human chorionic gonadotropin, urine, qualitative (urine test) Negative Encounters Code Encounter Date Provider Facility CPT-51847 Level 4 Est. Patient 15:18:41 CDT Alexa Payan MD [facility] CPT-88219 Level 4 Est. Patient 16:00:10 CDT Alexa Payna MD [facility] CPT-97096 Level 3 Est. 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 Patient 15:25:26 OIL WELL SERVICE OPERATOR HELPER Galen Mixon MD [facility] CPT-14616 Level 3 Est. Patient 18:43:55 CDT Ousmane MENDIOLA [facility] Procedures Code Procedure Name Date Entry Date Standard Description CPT-74322 Prv Med Est Pt 18-39yrs 11:00:53 OIL WELL SERVICE OPERATOR HELPER CPT-63547 Sono pelvis non OB uterus ovaries cervix - XRAY USE ONLY 15:50:30 CDT CPT-OV Office Visit 12:15:53 CDT
--- OUTSIDE RECORDS SUMMARY | 2019-02-20 07:43 | XMS REPORT | Clinical Summary ---
Author Author Admin, DIMAS Organization [facility] Address Unknown Phone Unavailable Allergies, Adverse Reactions, [...] TABLET 1 tablet by mouth daily FLUCONAZOLE 83433098397 Active Stefanie Silva LPN Active DOXYCYCLINE MONOHYDRATE 100 MG ORAL CAPSULE 1 tablet daily for cystic acne DOXYCYCLINE MONOHYDRATE 14366912921 No Longer Active Alexa Payan MD Active CONCEPT DHA 53.5-38-1 MG ORAL CAPSULE one tab PO daily АЛЕКСАНДРAT- BMHOX-WFWY-UU-OMEGA 3 44674879023 Active Alexa Payan MD Active METFORMIN HCL 500 MG ORAL TABLET one tab PO qhs x 1 week, then one tab PO BID x 1 week, then two tabs PO BID METFORMIN HCL 81279139493 Active Alexa Payan MD Active SPRINTEC 28 0.25-35 MG-MCG ORAL TABLET 1 pill by mouth daily 2018 NORGESTIMATE-ETH ESTRADIOL 74085644864 No Longer Active Alexa Payan MD Active PROMETRIUM 200 MG ORAL CAPSULE two tabs PO qhs x 10 days PROGESTERONE MICRONIZED 93710632009 No Longer Active Alexa Payan MD Active PERMETHRIN 5 % EXTERNAL CREAM apply neck to toes tonight and then rinse off in morning. repeat at 7 days PERMETHRIN 31537142873 No Longer Active Suhail Kaye MD Active PREDNISONE 20 MG ORAL TABLET 2 tabs daily for 3 days, 1 tab daily for 3 days, 1/2 tab daily for 2 days PREDNISONE 10190205065 No Longer Active Galen Mixon MD Active PROVERA 10 MG ORAL TABLET 1 tablet by mouth daily MEDROXYPROGESTERONE ACETATE 31380210527 No Longer Active Stefanie Silva LPN Active BENADRYL 25 MG ORAL CAPSULE 1 po q8hr PRN Congestion DIPHENHYDRAMINE HCL 86255837607 No Longer Active Dinorah Yumiko Active ACYCLOVIR 800 MG ORAL TABLET 1 tab PO tid x 5 days ACYCLOVIR 64618828073 No Longer Active Dinorah Yumiko Active ACYCLOVIR 800 MG ORAL TABLET 1 tab PO tid x 5 days ACYCLOVIR 800 MG ORAL TABLET 100973 ACYCLOVIR Inactive BENADRYL 25 MG ORAL CAPSULE 1 po q8hr PRN Congestion BENADRYL 25 MG ORAL CAPSULE DIPHENHYDRAMINE HCL Inactive PERMETHRIN 5 % EXTERNAL CREAM apply neck to toes tonight and then rinse off in morning. repeat at 7 days PERMETHRIN 5 % EXTERNAL CREAM 235600 PERMETHRIN Inactive SPRINTEC 28 0.25-35 MG-MCG ORAL TABLET 1 pill by mouth daily 2018 SPRINTEC 28 0.25-35 MG-MCG ORAL TABLET 022337 NORGESTIMATE-ETH ESTRADIOL Inactive DOXYCYCLINE MONOHYDRATE 100 MG ORAL CAPSULE 1 tablet daily for cystic acne DOXYCYCLINE MONOHYDRATE 100 MG ORAL CAPSULE 3198347 DOXYCYCLINE MONOHYDRATE Inactive PROVERA 10 MG ORAL TABLET 1 tablet by mouth daily PROVERA 10 MG ORAL TABLET 6302112 MEDROXYPROGESTERONE ACETATE Inactive PREDNISONE 20 MG ORAL TABLET 2 tabs daily for 3 days, 1 tab daily for 3 days, 1/2 tab daily for 2 days PREDNISONE 20 MG ORAL TABLET 315892 PREDNISONE Inactive PROMETRIUM 200 MG ORAL CAPSULE two tabs PO qhs x 10 days PROMETRIUM 200 MG ORAL CAPSULE 551574 PROGESTERONE MICRONIZED Inactive Vital Signs Date Name Value Unit Range Description blood pressure, diastolic 74 mm[Hg] BP [place] blood pressure, systolic 127 mm[Hg] BP sys height E&M 67 [in_us] Bdy height pulse rate E&M 84 /min Heart rate weight E&M 134 [lb_av] Weight Measured Diagnostic Results Date Name Value Unit Range Description Lab Report: Chlamydia/GC APTIMA/13328 - Lab chlamydia DNA probe NOT DETECTED NOT DETECTED Lab Report: Chlamydia/GC APTIMA/16796 - Microbiology Neisseria gonorrhoeae DNA probe NOT DETECTED NOT DETECTED Encounters Code Encounter Date Provider Facility CPT-31002 Level 4 Est. Patient 15:18:41 CDT Alexa Payan MD [facility] CPT-96033 Level 4 Est. Patient 16:00:10 CDT Alexa Payan MD [facility] CPT-08984 Level 3 Est. 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 Patient 15:25:26 ADULT BASIC STUDIES TEACHER Galen Mixon MD [facility] CPT-68624 Level 3 Est. Patient 18:43:55 CDT Ousmane MENDIOLA [facility] Procedures Code Procedure Name Date Entry Date Standard Description CPT-62736 Prv Med Est Pt 18-39yrs 11:00:53 ADULT BASIC STUDIES TEACHER CPT-91957 Sono pelvis non OB uterus ovaries cervix - XRAY USE ONLY 15:50:30 CDT CPT-OV Office Visit 12:15:53 CDT
--- OUTSIDE RECORDS SUMMARY | 2019-02-20 07:44 | XMS REPORT | Clinical Summary ---
Author Author Admin, DIMAS Organization [facility] [employer] Address Unknown Phone Unavailable Allergies, Adverse Reactions, Alerts Allergy Name Reaction Description Start Date Severity Status Provider No Known Allergies Katia Elder NKDA Critical Active Dinorah Yumiko Conditions or [...] TABLET 1 tablet by mouth daily FLUCONAZOLE 21096916310 Active Stefanie Silva LPN Active DOXYCYCLINE MONOHYDRATE 100 MG ORAL CAPSULE 1 tablet daily for cystic acne DOXYCYCLINE MONOHYDRATE 91547664868 No Longer Active Alexa Payan MD Active CONCEPT DHA 53.5-38-1 MG ORAL CAPSULE one tab PO daily [facility]- [facility]O-OMEGA 3 22570293628 Active Alexa Payan MD Active METFORMIN HCL 500 MG ORAL TABLET one tab PO qhs x 1 week, then one tab PO BID x 1 week, then two tabs PO BID METFORMIN HCL 56634746282 Active Alexa Payan MD Active SPRINTEC 28 0.25-35 MG-MCG ORAL TABLET 1 pill by mouth daily 2018 NORGESTIMATE-ETH ESTRADIOL 51435767127 No Longer Active Alexa Payan MD Active PROMETRIUM 200 MG ORAL CAPSULE two tabs PO qhs x 10 days PROGESTERONE MICRONIZED 29478707283 No Longer Active Alexa Payan MD Active PERMETHRIN 5 % EXTERNAL CREAM apply neck to toes tonight and then rinse off in morning. repeat at 7 days PERMETHRIN 42907201904 No Longer Active Suhail Kaye MD Active PREDNISONE 20 MG ORAL TABLET 2 tabs daily for 3 days, 1 tab daily for 3 days, 1/2 tab daily for 2 days PREDNISONE 01999036115 No Longer Active Galen Mixon MD Active PROVERA 10 MG ORAL TABLET 1 tablet by mouth daily MEDROXYPROGESTERONE ACETATE 62537515514 No Longer Active Stefanie Silva LPN Active BENADRYL 25 MG ORAL CAPSULE 1 po q8hr PRN Congestion DIPHENHYDRAMINE HCL 05742751648 No Longer Active Dinorah Calderon Active ACYCLOVIR 800 MG ORAL TABLET 1 tab PO tid x 5 days ACYCLOVIR 79849332116 No Longer Active Dinorah Calderon Active BENADRYL 25 MG ORAL CAPSULE 1 po q8hr PRN Congestion BENADRYL 25 MG ORAL CAPSULE DIPHENHYDRAMINE HCL Inactive PREDNISONE 20 MG ORAL TABLET 2 tabs daily for 3 days, 1 tab daily for 3 days, 1/2 tab daily for 2 days PREDNISONE 20 MG ORAL TABLET 743430 PREDNISONE Inactive PROVERA 10 MG ORAL TABLET 1 tablet by mouth daily PROVERA 10 MG ORAL TABLET 4726316 MEDROXYPROGESTERONE ACETATE Inactive ACYCLOVIR 800 MG ORAL TABLET 1 tab PO tid x 5 days ACYCLOVIR 800 MG ORAL TABLET 002170 ACYCLOVIR Inactive DOXYCYCLINE MONOHYDRATE 100 MG ORAL CAPSULE 1 tablet daily for cystic acne DOXYCYCLINE MONOHYDRATE 100 MG ORAL CAPSULE 7595142 DOXYCYCLINE MONOHYDRATE Inactive PERMETHRIN 5 % EXTERNAL CREAM apply neck to toes tonight and then rinse off in morning. repeat at 7 days PERMETHRIN 5 % EXTERNAL CREAM 382426 PERMETHRIN Inactive PROMETRIUM 200 MG ORAL CAPSULE two tabs PO qhs x 10 days PROMETRIUM 200 MG ORAL CAPSULE 313986 PROGESTERONE MICRONIZED Inactive SPRINTEC 28 0.25-35 MG-MCG ORAL TABLET 1 pill by mouth daily 2018 SPRINTEC 28 0.25-35 MG-MCG ORAL TABLET 382088 NORGESTIMATE-ETH ESTRADIOL Inactive Diagnostic Results Date Name Value Unit Range Description Lab Report: Chlamydia/GC APTIMA/06850 - Lab chlamydia DNA probe NOT DETECTED NOT DETECTED Lab Report: Chlamydia/GC APTIMA/17046 - Microbiology Neisseria gonorrhoeae DNA probe NOT DETECTED NOT DETECTED Encounters Code Encounter Date Provider Facility CPT-36183 Level 4 Est. Patient 15:18:41 CDT Alexa Payan MD [facility] CPT-31941 Level 4 Est. Patient 16:00:10 CDT Alexa Payan MD [facility] CPT-02102 Level 3 Est. 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 Patient 15:25:26 NUCLEAR SUPERVISING OPERATOR Galen Mixon MD [facility] CPT-19593 Level 3 Est. Patient 18:43:55 CDT Ousmane MENDIOLA [facility] Procedures Code Procedure Name Date Entry Date Standard Description CPT-61462 Prv Med Est Pt 18-39yrs 11:00:53 NUCLEAR SUPERVISING OPERATOR CPT-28562 Sono pelvis non OB uterus ovaries cervix - XRAY USE ONLY 15:50:30 CDT CPT-OV Office Visit 12:15:53 CDT
--- OUTSIDE RECORDS SUMMARY | 2019-02-20 07:44 | XMS REPORT | Clinical Summary ---
Author Author Admin, DIMAS Organization [facility] [employer] Address Unknown Phone Unavailable Allergies, Adverse Reactions, [...] TABLET 1 tablet by mouth daily FLUCONAZOLE 60084451953 Active Stefanie Silva LPN Active DOXYCYCLINE MONOHYDRATE 100 MG ORAL CAPSULE 1 tablet daily for cystic acne DOXYCYCLINE MONOHYDRATE 74632909491 No Longer Active Alexa Payan MD Active CONCEPT DHA 53.5-38-1 MG ORAL CAPSULE one tab PO daily АЛЕКСАНДРAT- UGCAW-TDZY-TX-OMEGA 3 36545496011 Active Alexa Payan MD Active METFORMIN HCL 500 MG ORAL TABLET one tab PO qhs x 1 week, then one tab PO BID x 1 week, then two tabs PO BID METFORMIN HCL 15823784105 Active Alexa Payan MD Active SPRINTEC 28 0.25-35 MG-MCG ORAL TABLET 1 pill by mouth daily 2018 NORGESTIMATE-ETH ESTRADIOL 67608079107 No Longer Active Alexa Payan MD Active PROMETRIUM 200 MG ORAL CAPSULE two tabs PO qhs x 10 days PROGESTERONE MICRONIZED 11806219567 No Longer Active Alexa Payan MD Active PERMETHRIN 5 % EXTERNAL CREAM apply neck to toes tonight and then rinse off in morning. repeat at 7 days PERMETHRIN 33844366592 No Longer Active Suhail Kaye MD Active PREDNISONE 20 MG ORAL TABLET 2 tabs daily for 3 days, 1 tab daily for 3 days, 1/2 tab daily for 2 days PREDNISONE 69241704342 No Longer Active Galen Mixon MD Active PROVERA 10 MG ORAL TABLET 1 tablet by mouth daily MEDROXYPROGESTERONE ACETATE 02746810537 No Longer Active Stefanie Silva LPN Active BENADRYL 25 MG ORAL CAPSULE 1 po q8hr PRN Congestion DIPHENHYDRAMINE HCL 61852246246 No Longer Active Dinorah Yumiko Active ACYCLOVIR 800 MG ORAL TABLET 1 tab PO tid x 5 days ACYCLOVIR 05763644122 No Longer Active Idnorah Yumiko Active ACYCLOVIR 800 MG ORAL TABLET 1 tab PO tid x 5 days ACYCLOVIR 800 MG ORAL TABLET 974790 ACYCLOVIR Inactive BENADRYL 25 MG ORAL CAPSULE 1 po q8hr PRN Congestion BENADRYL 25 MG ORAL CAPSULE DIPHENHYDRAMINE HCL Inactive PERMETHRIN 5 % EXTERNAL CREAM apply neck to toes tonight and then rinse off in morning. repeat at 7 days PERMETHRIN 5 % EXTERNAL CREAM 190739 PERMETHRIN Inactive SPRINTEC 28 0.25-35 MG-MCG ORAL TABLET 1 pill by mouth daily 2018 SPRINTEC 28 0.25-35 MG-MCG ORAL TABLET 186693 NORGESTIMATE-ETH ESTRADIOL Inactive DOXYCYCLINE MONOHYDRATE 100 MG ORAL CAPSULE 1 tablet daily for cystic acne DOXYCYCLINE MONOHYDRATE 100 MG ORAL CAPSULE 5294285 DOXYCYCLINE MONOHYDRATE Inactive PROVERA 10 MG ORAL TABLET 1 tablet by mouth daily PROVERA 10 MG ORAL TABLET 5515715 MEDROXYPROGESTERONE ACETATE Inactive PREDNISONE 20 MG ORAL TABLET 2 tabs daily for 3 days, 1 tab daily for 3 days, 1/2 tab daily for 2 days PREDNISONE 20 MG ORAL TABLET 181378 PREDNISONE Inactive PROMETRIUM 200 MG ORAL CAPSULE two tabs PO qhs x 10 days PROMETRIUM 200 MG ORAL CAPSULE 007087 PROGESTERONE MICRONIZED Inactive Vital Signs Date Name Value Unit Range Description blood pressure, diastolic 74 mm[Hg] BP [place] blood pressure, systolic 127 mm[Hg] BP sys height E&M 67 [in_us] Bdy height pulse rate E&M 84 /min Heart rate weight E&M 134 [lb_av] Weight Measured Diagnostic Results Date Name Value Unit Range Description Lab Report: Chlamydia/GC APTIMA/34674 - Lab chlamydia DNA probe NOT DETECTED NOT DETECTED Lab Report: Chlamydia/GC APTIMA/61806 - Microbiology Neisseria gonorrhoeae DNA probe NOT DETECTED NOT DETECTED Encounters Code Encounter Date Provider Facility CPT-82791 Level 4 Est. Patient 15:18:41 CDT Alexa Payan MD [facility] CPT-24321 Level 4 Est. Patient 16:00:10 CDT Alexa Payan MD [facility] CPT-94932 Level 3 Est. Patient 20:13:14 ON SITE NURSE Suhail Kaye MD [facility] CPT-72192 Level 3 Est. Patient 15:25:26 ON SITE NURSE Galen Mixon MD [facility] CPT-32712 Level 3 Est. Patient 18:43:55 CDT Ousmane MENDIOLA [facility] Procedures Code Procedure Name Date Entry Date Standard Description CPT-73473 Prv Med Est Pt 18-39yrs 11:00:53 ON SITE NURSE CPT-47484 Sono pelvis non OB uterus ovaries cervix - XRAY USE ONLY 15:50:30 CDT CPT-OV Office Visit 12:15:53 CDT
--- OUTSIDE RECORDS SUMMARY | 2019-02-20 07:44 | XMS REPORT | Clinical Summary ---
Author Author Admin, DIMAS Organization [facility] [employer] Address Unknown Phone Unavailable Allergies, Adverse Reactions, [...] TABLET 1 tablet by mouth daily FLUCONAZOLE 23481835254 Active Stefanie Silva LPN Active DOXYCYCLINE MONOHYDRATE 100 MG ORAL CAPSULE 1 tablet daily for cystic acne DOXYCYCLINE MONOHYDRATE 11687204090 No Longer Active Alexa Payan MD Active CONCEPT DHA 53.5-38-1 MG ORAL CAPSULE one tab PO daily [facility]-FE[facility]-FA-OMEGA 3 37293455032 Active Alexa Payan MD Active METFORMIN HCL 500 MG ORAL TABLET one tab PO qhs x 1 week, then one tab PO BID x 1 week, then two tabs PO BID METFORMIN HCL 09267439838 Active Alexa Payan MD Active SPRINTEC 28 0.25-35 MG-MCG ORAL TABLET 1 pill by mouth daily 2018 NORGESTIMATE-ETH ESTRADIOL 26875566894 No Longer Active Alexa Payan MD Active PROMETRIUM 200 MG ORAL CAPSULE two tabs PO qhs x 10 days PROGESTERONE MICRONIZED 70197045597 No Longer Active Alexa Payan MD Active PERMETHRIN 5 % EXTERNAL CREAM apply neck to toes tonight and then rinse off in morning. repeat at 7 days PERMETHRIN 07999102301 No Longer Active Suhail Kaye MD Active PREDNISONE 20 MG ORAL TABLET 2 tabs daily for 3 days, 1 tab daily for 3 days, 1/2 tab daily for 2 days PREDNISONE 82928688771 No Longer Active Galen Mixon MD Active PROVERA 10 MG ORAL TABLET 1 tablet by mouth daily MEDROXYPROGESTERONE ACETATE 01874463951 No Longer Active Stefanie Silva LPN Active BENADRYL 25 MG ORAL CAPSULE 1 po q8hr PRN Congestion DIPHENHYDRAMINE HCL 59805551176 No Longer Active Dinorah Calderon Active ACYCLOVIR 800 MG ORAL TABLET 1 tab PO tid x 5 days ACYCLOVIR 86781758045 No Longer Active Dinorah Calderon Active ACYCLOVIR 800 MG ORAL TABLET 1 tab PO tid x 5 days ACYCLOVIR 800 MG ORAL TABLET 728321 ACYCLOVIR Inactive BENADRYL 25 MG ORAL CAPSULE 1 po q8hr PRN Congestion BENADRYL 25 MG ORAL CAPSULE DIPHENHYDRAMINE HCL Inactive PERMETHRIN 5 % EXTERNAL CREAM apply neck to toes tonight and then rinse off in morning. repeat at 7 days PERMETHRIN 5 % EXTERNAL CREAM 116577 PERMETHRIN Inactive SPRINTEC 28 0.25-35 MG-MCG ORAL TABLET 1 pill by mouth daily 2018 SPRINTEC 28 0.25-35 MG-MCG ORAL TABLET 126712 NORGESTIMATE-ETH ESTRADIOL Inactive DOXYCYCLINE MONOHYDRATE 100 MG ORAL CAPSULE 1 tablet daily for cystic acne DOXYCYCLINE MONOHYDRATE 100 MG ORAL CAPSULE 3629557 DOXYCYCLINE MONOHYDRATE Inactive PROVERA 10 MG ORAL TABLET 1 tablet by mouth daily PROVERA 10 MG ORAL TABLET 8202733 MEDROXYPROGESTERONE ACETATE Inactive PREDNISONE 20 MG ORAL TABLET 2 tabs daily for 3 days, 1 tab daily for 3 days, 1/2 tab daily for 2 days PREDNISONE 20 MG ORAL TABLET 879511 PREDNISONE Inactive PROMETRIUM 200 MG ORAL CAPSULE two tabs PO qhs x 10 days PROMETRIUM 200 MG ORAL CAPSULE 171390 PROGESTERONE MICRONIZED Inactive Encounters Code Encounter Date Provider Facility CPT-33244 Level 4 Est. Patient 15:18:41 CDT Alexa Payan MD [facility] CPT-26631 Level 4 Est. Patient 16:00:10 CDT Alexa Payan MD [facility] CPT-08673 Level 3 Est. 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 Patient 15:25:26 STITCHER STANDARD MACHINE Galen Mixon MD [facility] CPT-20185 Level 3 Est. Patient 18:43:55 CDT Ousmane MENDIOLA [facility] Procedures Code Procedure Name Date Entry Date Standard Description CPT-99471 Prv Med Est Pt 18-39yrs 11:00:53 STITCHER STANDARD MACHINE CPT-34611 Sono pelvis non OB uterus ovaries cervix - XRAY USE ONLY 15:50:30 CDT CPT-OV Office Visit 12:15:53 CDT
--- OUTSIDE RECORDS SUMMARY | 2019-02-20 07:44 | XMS REPORT | Clinical Summary ---
Author Author Admin, Buzz Organization [facility] Address Unknown Phone Unavailable Allergies, Adverse Reactions, Alerts Allergy Name Reaction Description Start Date Severity Status Provider No Known Allergies Katia Elder NKDA Critical Active Dinorah Calderon Conditions or [...] TABLET 1 tablet by mouth daily FLUCONAZOLE 49141572714 Active Stefanie Silva LPN Active DOXYCYCLINE MONOHYDRATE 100 MG ORAL CAPSULE 1 tablet daily for cystic acne DOXYCYCLINE MONOHYDRATE 07392626877 No Longer Active Alexa Payan MD Active CONCEPT DHA 53.5-38-1 MG ORAL CAPSULE one tab PO daily [facility]- [id number]-[id number]-BT-OMEGA 3 21388776505 Active Alexa Payan MD Active METFORMIN HCL 500 MG ORAL TABLET one tab PO qhs x 1 week, then one tab PO BID x 1 week, then two tabs PO BID METFORMIN HCL 94001522652 Active Alexa Payan MD Active SPRINTEC 28 0.25-35 MG-MCG ORAL TABLET 1 pill by mouth daily 2018 NORGESTIMATE-ETH ESTRADIOL 82914530115 No Longer Active Alexa Payan MD Active PROMETRIUM 200 MG ORAL CAPSULE two tabs PO qhs x 10 days PROGESTERONE MICRONIZED 45998349418 No Longer Active Alexa Payan MD Active PERMETHRIN 5 % EXTERNAL CREAM apply neck to toes tonight and then rinse off in morning. repeat at 7 days PERMETHRIN 60269122448 No Longer Active Suhail Kaye MD Active PREDNISONE 20 MG ORAL TABLET 2 tabs daily for 3 days, 1 tab daily for 3 days, 1/2 tab daily for 2 days PREDNISONE 99672279769 No Longer Active Galen Mixon MD Active PROVERA 10 MG ORAL TABLET 1 tablet by mouth daily MEDROXYPROGESTERONE ACETATE 64130975680 No Longer Active Stefanie Silva LPN Active BENADRYL 25 MG ORAL CAPSULE 1 po q8hr PRN Congestion DIPHENHYDRAMINE HCL 34923094547 No Longer Active Dinorah Calderon Active ACYCLOVIR 800 MG ORAL TABLET 1 tab PO tid x 5 days ACYCLOVIR 47858639845 No Longer Active Dinorahleticia Calderon Active ACYCLOVIR 800 MG ORAL TABLET 1 tab PO tid x 5 days ACYCLOVIR 800 MG ORAL TABLET 371923 ACYCLOVIR Inactive BENADRYL 25 MG ORAL CAPSULE 1 po q8hr PRN Congestion BENADRYL 25 MG ORAL CAPSULE DIPHENHYDRAMINE HCL Inactive PERMETHRIN 5 % EXTERNAL CREAM apply neck to toes tonight and then rinse off in morning. repeat at 7 days PERMETHRIN 5 % EXTERNAL CREAM 329018 PERMETHRIN Inactive SPRINTEC 28 0.25-35 MG-MCG ORAL TABLET 1 pill by mouth daily 2018 SPRINTEC 28 0.25-35 MG-MCG ORAL TABLET 040995 NORGESTIMATE-ETH ESTRADIOL Inactive DOXYCYCLINE MONOHYDRATE 100 MG ORAL CAPSULE 1 tablet daily for cystic acne DOXYCYCLINE MONOHYDRATE 100 MG ORAL CAPSULE 2912196 DOXYCYCLINE MONOHYDRATE Inactive PROVERA 10 MG ORAL TABLET 1 tablet by mouth daily PROVERA 10 MG ORAL TABLET 9778044 MEDROXYPROGESTERONE ACETATE Inactive PREDNISONE 20 MG ORAL TABLET 2 tabs daily for 3 days, 1 tab daily for 3 days, 1/2 tab daily for 2 days PREDNISONE 20 MG ORAL TABLET 328212 PREDNISONE Inactive PROMETRIUM 200 MG ORAL CAPSULE two tabs PO qhs x 10 days PROMETRIUM 200 MG ORAL CAPSULE 704222 PROGESTERONE MICRONIZED Inactive Diagnostic Results Date Name Value Unit Range Description Lab Report: Chlamydia/GC APTIMA/25295 - Lab chlamydia DNA probe NOT DETECTED NOT DETECTED Lab Report: Chlamydia/GC APTIMA/99713 - Microbiology Neisseria gonorrhoeae DNA probe NOT DETECTED NOT DETECTED Encounters Code Encounter Date Provider Facility CPT-41008 Level 4 Est. Patient 15:18:41 CDT Alexa Payan MD [facility] CPT-47897 Level 4 Est. Patient 16:00:10 CDT Alexa Payan MD [facility] CPT-66028 Level 3 Est. 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 Patient 15:25:26 BOWLING ALLEY ATTENDANT Galen Mixon MD [facility] CPT-00732 Level 3 Est. Patient 18:43:[address] [facility] Procedures Code Procedure Name Date Entry Date Standard Description CPT-07989 Prv Med Est Pt 18-39yrs 11:00:53 BOWLING ALLEY ATTENDANT CPT-39440 Sono pelvis non OB uterus ovaries cervix - XRAY USE ONLY 15:50:30 CDT CPT-OV Office Visit 12:15:53 CDT
--- OUTSIDE RECORDS SUMMARY | 2019-02-20 07:44 | XMS REPORT | Clinical Summary ---
Author Author Admin, Buzz Organization [facility] Address Unknown Phone Unavailable Allergies, Adverse Reactions, [...] TABLET 1 tablet by mouth daily FLUCONAZOLE 78061820649 Active Stefanie Silva LPN Active DOXYCYCLINE MONOHYDRATE 100 MG ORAL CAPSULE 1 tablet daily for cystic acne DOXYCYCLINE MONOHYDRATE 18447013893 No Longer Active Alexa Payan MD Active CONCEPT DHA 53.5-38-1 MG ORAL CAPSULE one tab PO daily [facility]- RGJCY-RDOA-EP-OMEGA 3 55987602629 Active Alexa Payan MD Active METFORMIN HCL 500 MG ORAL TABLET one tab PO qhs x 1 week, then one tab PO BID x 1 week, then two tabs PO BID METFORMIN HCL 78546303097 Active Alexa Payan MD Active SPRINTEC 28 0.25-35 MG-MCG ORAL TABLET 1 pill by mouth daily 2018 NORGESTIMATE-ETH ESTRADIOL 43858381401 No Longer Active Alexa Payan MD Active PROMETRIUM 200 MG ORAL CAPSULE two tabs PO qhs x 10 days PROGESTERONE MICRONIZED 88806941227 No Longer Active Alexa Payan MD Active PERMETHRIN 5 % EXTERNAL CREAM apply neck to toes tonight and then rinse off in morning. repeat at 7 days PERMETHRIN 37754161251 No Longer Active Suhail Kaye MD Active PREDNISONE 20 MG ORAL TABLET 2 tabs daily for 3 days, 1 tab daily for 3 days, 1/2 tab daily for 2 days PREDNISONE 34363876061 No Longer Active Galen Mixon MD Active PROVERA 10 MG ORAL TABLET 1 tablet by mouth daily MEDROXYPROGESTERONE ACETATE 54906602210 No Longer Active Stefanie Silva LPN Active BENADRYL 25 MG ORAL CAPSULE 1 po q8hr PRN Congestion DIPHENHYDRAMINE HCL 38747392207 No Longer Active Dinorah Calderon Active ACYCLOVIR 800 MG ORAL TABLET 1 tab PO tid x 5 days ACYCLOVIR 14277486581 No Longer Active Dinorah Calderon Active BENADRYL 25 MG ORAL CAPSULE 1 po q8hr PRN Congestion BENADRYL 25 MG ORAL CAPSULE DIPHENHYDRAMINE HCL Inactive PREDNISONE 20 MG ORAL TABLET 2 tabs daily for 3 days, 1 tab daily for 3 days, 1/2 tab daily for 2 days PREDNISONE 20 MG ORAL TABLET 836362 PREDNISONE Inactive PROVERA 10 MG ORAL TABLET 1 tablet by mouth daily PROVERA 10 MG ORAL TABLET 2200732 MEDROXYPROGESTERONE ACETATE Inactive ACYCLOVIR 800 MG ORAL TABLET 1 tab PO tid x 5 days ACYCLOVIR 800 MG ORAL TABLET 049200 ACYCLOVIR Inactive DOXYCYCLINE MONOHYDRATE 100 MG ORAL CAPSULE 1 tablet daily for cystic acne DOXYCYCLINE MONOHYDRATE 100 MG ORAL CAPSULE 5329236 DOXYCYCLINE MONOHYDRATE Inactive PERMETHRIN 5 % EXTERNAL CREAM apply neck to toes tonight and then rinse off in morning. repeat at 7 days PERMETHRIN 5 % EXTERNAL CREAM 368732 PERMETHRIN Inactive PROMETRIUM 200 MG ORAL CAPSULE two tabs PO qhs x 10 days PROMETRIUM 200 MG ORAL CAPSULE 685045 PROGESTERONE MICRONIZED Inactive SPRINTEC 28 0.25-35 MG-MCG ORAL TABLET 1 pill by mouth daily 2018 SPRINTEC 28 0.25-35 MG-MCG ORAL TABLET 406872 NORGESTIMATE-ETH ESTRADIOL Inactive Diagnostic Results Date Name Value Unit Range Description Lab Report: Chlamydia/GC APTIMA/37471 - Lab chlamydia DNA probe NOT DETECTED NOT DETECTED Lab Report: Chlamydia/GC APTIMA/64227 - Microbiology Neisseria gonorrhoeae DNA probe NOT DETECTED NOT DETECTED Encounters Code Encounter Date Provider Facility CPT-83586 Level 4 Est. Patient 15:18:41 CDT Alexa Payan MD [facility] CPT-32204 Level 4 Est. Patient 16:00:10 CDT Alexa Payan MD [facility] CPT-33651 Level 3 Est. Patient 20:13:14 CHIPPER FEEDER Suhail Kaye MD [facility] CPT-19499 Level 3 Est. Patient 15:25:26 CHIPPER FEEDER Galen Mixon MD [facility] CPT-64556 Level 3 Est. Patient 18:43:55 CDT Ousmane MENDIOLA [facility] Procedures Code Procedure Name Date Entry Date Standard Description CPT-92933 Prv Med Est Pt 18-39yrs 11:00:53 CHIPPER FEEDER CPT-13723 Sono pelvis non OB uterus ovaries cervix - XRAY USE ONLY 15:50:30 CDT CPT-OV Office Visit 12:15:53 CDT
--- OUTSIDE RECORDS SUMMARY | 2019-02-20 07:45 | XMS REPORT | Clinical Summary ---
Author Author Admin, DIMAS Organization [facility] [employer] Address Unknown Phone Unavailable Allergies, Adverse Reactions, Alerts Allergy Name Reaction Description Start Date Severity Status Provider No Known Allergies Katai Elder NKDA Critical Active Dinorah Yumiko Conditions [...] TABLET 1 tablet by mouth daily FLUCONAZOLE 49897957607 Active Stefanie Silav LPN Active DOXYCYCLINE MONOHYDRATE 100 MG ORAL CAPSULE 1 tablet daily for cystic acne DOXYCYCLINE MONOHYDRATE 90387084777 No Longer Active Alexa Payan MD Active CONCEPT DHA 53.5-38-1 MG ORAL CAPSULE one tab PO daily [facility]- [id number]-OMEGA 3 12712691994 Active Alexa Payan MD Active METFORMIN HCL 500 MG ORAL TABLET one tab PO qhs x 1 week, then one tab PO BID x 1 week, then two tabs PO BID METFORMIN HCL 11920162296 Active Alexa Payan MD Active SPRINTEC 28 0.25-35 MG-MCG ORAL TABLET 1 pill by mouth daily 2018 NORGESTIMATE-ETH ESTRADIOL 20989814661 No Longer Active Alexa Payan MD Active PROMETRIUM 200 MG ORAL CAPSULE two tabs PO qhs x 10 days PROGESTERONE MICRONIZED 33341983819 No Longer Active Alexa Payan MD Active PERMETHRIN 5 % EXTERNAL CREAM apply neck to toes tonight and then rinse off in morning. repeat at 7 days PERMETHRIN 42690223530 No Longer Active Suhail Kaye MD Active PREDNISONE 20 MG ORAL TABLET 2 tabs daily for 3 days, 1 tab daily for 3 days, 1/2 tab daily for 2 days PREDNISONE 37419527637 No Longer Active Galen Mixon MD Active PROVERA 10 MG ORAL TABLET 1 tablet by mouth daily MEDROXYPROGESTERONE ACETATE 09342897081 No Longer Active Stefanie Silva LPN Active BENADRYL 25 MG ORAL CAPSULE 1 po q8hr PRN Congestion DIPHENHYDRAMINE HCL 56392587744 No Longer Active Dinorah Calderon Active ACYCLOVIR 800 MG ORAL TABLET 1 tab PO tid x 5 days ACYCLOVIR 69842075984 No Longer Active Dinorah Yumiko Active ACYCLOVIR 800 MG ORAL TABLET 1 tab PO tid x 5 days ACYCLOVIR 800 MG ORAL TABLET 541582 ACYCLOVIR Inactive BENADRYL 25 MG ORAL CAPSULE 1 po q8hr PRN Congestion BENADRYL 25 MG ORAL CAPSULE DIPHENHYDRAMINE HCL Inactive PERMETHRIN 5 % EXTERNAL CREAM apply neck to toes tonight and then rinse off in morning. repeat at 7 days PERMETHRIN 5 % EXTERNAL CREAM 312635 PERMETHRIN Inactive SPRINTEC 28 0.25-35 MG-MCG ORAL TABLET 1 pill by mouth daily 2018 SPRINTEC 28 0.25-35 MG-MCG ORAL TABLET 396107 NORGESTIMATE-ETH ESTRADIOL Inactive DOXYCYCLINE MONOHYDRATE 100 MG ORAL CAPSULE 1 tablet daily for cystic acne DOXYCYCLINE MONOHYDRATE 100 MG ORAL CAPSULE 3586686 DOXYCYCLINE MONOHYDRATE Inactive PROVERA 10 MG ORAL TABLET 1 tablet by mouth daily PROVERA 10 MG ORAL TABLET 8474800 MEDROXYPROGESTERONE ACETATE Inactive PREDNISONE 20 MG ORAL TABLET 2 tabs daily for 3 days, 1 tab daily for 3 days, 1/2 tab daily for 2 days PREDNISONE 20 MG ORAL TABLET 404869 PREDNISONE Inactive PROMETRIUM 200 MG ORAL CAPSULE two tabs PO qhs x 10 days PROMETRIUM 200 MG ORAL CAPSULE 160061 PROGESTERONE MICRONIZED Inactive Encounters Code Encounter Date Provider Facility CPT-12802 Level 4 Est. Patient 15:18:41 CDT Alexa Payan MD [facility] CPT-83757 Level 4 Est. Patient 16:00:10 CDT Alexa Payan MD [facility] CPT-88057 Level 3 Est. Patient 20:13:14 LIME TRIMMER Suhail Kaye MD [facility] CPT-63954 Level 3 Est. Patient 15:25:26 LIME TRIMMER Galen Mixon MD [facility] CPT-99040 Level 3 Est. Patient 18:43:55 CDT Ousmane MENDIOLA [facility] Procedures Code Procedure Name Date Entry Date Standard Description CPT-98020 Prv Med Est Pt 18-39yrs 11:00:53 LIME TRIMMER CPT-53243 Sono pelvis non OB uterus ovaries cervix - XRAY USE ONLY 15:50:30 CDT CPT-OV Office Visit 12:15:53 CDT
--- OUTSIDE RECORDS SUMMARY | 2019-02-20 07:45 | XMS REPORT | Clinical Summary ---
Author Author Admin, DIMAS Organization [facility] Address Unknown Phone Unavailable Allergies, Adverse Reactions, Alerts Allergy Name Reaction Description Start Date Severity Status Provider No Known Allergies Katia Elder Conditions or Problems Problem Name Problem Code Onset Date Status Entry Date Provider Comment Standard Description Annotate Shingles 053.9 Active Ousmane MENDIOLA Herpes zoster without mention of complication Amenorrhea, secondary 626.0 Active Alexa Payan MD Absence of menstruation Underweight 783.22 Active Alexa Payan MD Underweight Skin rash 782.1 Active Galen Mixon MD Rash and other nonspecific skin eruption Influenza like illness 487.1 Active Suhail Kaye MD Influenza with other respiratory manifestations Acne 706.1 Active Alexa Payan MD Other acne Polycystic ovary syndrome 256.4 Active Alexa Payan MD Polycystic ovaries Contraceptive management V25.09 Active Alexa Payan MD Encounter for other general counseling and advice on contraceptive management Medication List Medication Instructions Start Date Stop Date Generic Name NDC Status Provider Patient Instruction SPRINTEC 28 0.25-35 MG-MCG ORAL TABLET 1 pill by mouth daily NORGESTIMATE-ETH ESTRADIOL 99116488019 Active Alexa Payan MD Active PROMETRIUM 200 MG ORAL CAPSULE two tabs PO qhs x 10 days PROGESTERONE MICRONIZED 91645054215 No Longer Active Alexa Payan MD Active PERMETHRIN 5 % EXTERNAL CREAM apply neck to toes tonight and then rinse off in morning. repeat at 7 days PERMETHRIN 44775725283 No Longer Active Suhail Kaye MD Active PREDNISONE 20 MG ORAL TABLET 2 tabs daily for 3 days, 1 tab daily for 3 days, 1/2 tab daily for 2 days PREDNISONE 12401554819 No Longer Active Galen Mixon MD Active PROVERA 10 MG ORAL TABLET 1 tablet by mouth daily MEDROXYPROGESTERONE ACETATE 73863098573 No Longer Active Stefanie Silva LPN Active BENADRYL 25 MG ORAL CAPSULE 1 po q8hr PRN Congestion DIPHENHYDRAMINE HCL 57410670410 No Longer Active Dinorah Yumiko Active ACYCLOVIR 800 MG ORAL TABLET 1 tab PO tid x 5 days ACYCLOVIR 30671644547 No Longer Active Dinorah Yumiko Active ACYCLOVIR 800 MG ORAL TABLET 1 tab PO tid x 5 days ACYCLOVIR 800 MG ORAL TABLET 202639 ACYCLOVIR Inactive BENADRYL 25 MG ORAL CAPSULE 1 po q8hr PRN Congestion BENADRYL 25 MG ORAL CAPSULE DIPHENHYDRAMINE HCL Inactive PERMETHRIN 5 % EXTERNAL CREAM apply neck to toes tonight and then rinse off in morning. repeat at 7 days PERMETHRIN 5 % EXTERNAL CREAM 653188 PERMETHRIN Inactive PROVERA 10 MG ORAL TABLET 1 tablet by mouth daily PROVERA 10 MG ORAL TABLET 4684431 MEDROXYPROGESTERONE ACETATE Inactive PREDNISONE 20 MG ORAL TABLET 2 tabs daily for 3 days, 1 tab daily for 3 days, 1/2 tab daily for 2 days PREDNISONE 20 MG ORAL TABLET 144243 PREDNISONE Inactive PROMETRIUM 200 MG ORAL CAPSULE two tabs PO qhs x 10 days PROMETRIUM 200 MG ORAL CAPSULE 017792 PROGESTERONE MICRONIZED Inactive Encounters Code Encounter Date Provider Facility CPT-46447 Level 4 Est. Patient 15:18:41 CDT Alexa Payan MD [facility] CPT-91201 Level 4 Est. Patient 16:00:10 CDT Alexa Payan MD [facility] CPT-68419 Level 3 Est. Patient 20:13:14 SAUSAGE STUFFER Suhail Kaye MD [facility] CPT-94854 Level 3 Est. Patient 15:25:26 SAUSAGE STUFFER Galen Mixon MD [facility] CPT-71023 Level 3 Est. Patient 18:43:55 CDT Ousmane MENDIOLA [facility] Procedures Code Procedure Name Date Entry Date Standard Description CPT-01706 Sono pelvis non OB uterus ovaries cervix - XRAY USE ONLY 15:50:30 CDT CPT-OV Office Visit 12:15:53 CDT
--- OUTSIDE RECORDS SUMMARY | 2019-02-20 07:45 | XMS REPORT | Clinical Summary ---
Author Author Admin, DIMAS Organization [facility] [employer] Address Unknown Phone Unavailable Allergies, Adverse Reactions, [...] Generic Name NDC Status Provider Patient Instruction DOXYCYCLINE MONOHYDRATE 100 MG ORAL CAPSULE 1 tablet daily for cystic acne DOXYCYCLINE MONOHYDRATE 14886677298 No Longer Active Alexa Payan MD Active CONCEPT DHA 53.5-38-1 MG ORAL CAPSULE one tab PO daily [facility]- [id number]-OMEGA 3 46330651454 Active Alexa Payan MD Active METFORMIN HCL 500 MG ORAL TABLET one tab PO qhs x 1 week, then one tab PO BID x 1 week, then two tabs PO BID METFORMIN HCL 62710995588 Active Alexa Payan MD Active SPRINTEC 28 0.25-35 MG-MCG ORAL TABLET 1 pill by mouth daily 2018 NORGESTIMATE-ETH ESTRADIOL 75304735417 No Longer Active Alexa Payan MD Active PROMETRIUM 200 MG ORAL CAPSULE two tabs PO qhs x 10 days PROGESTERONE MICRONIZED 71021885545 No Longer Active Alexa Payan MD Active PERMETHRIN 5 % EXTERNAL CREAM apply neck to toes tonight and then rinse off in morning. repeat at 7 days PERMETHRIN 48014928308 No Longer Active Suhail Kaye MD Active PREDNISONE 20 MG ORAL TABLET 2 tabs daily for 3 days, 1 tab daily for 3 days, 1/2 tab daily for 2 days PREDNISONE 45815168789 No Longer Active Galen Mixon MD Active PROVERA 10 MG ORAL TABLET 1 tablet by mouth daily MEDROXYPROGESTERONE ACETATE 11117445964 No Longer Active Stefanie Silva LPN Active BENADRYL 25 MG ORAL CAPSULE 1 po q8hr PRN Congestion DIPHENHYDRAMINE HCL 26125238136 No Longer Active Dinorah Calderon Active ACYCLOVIR 800 MG ORAL TABLET 1 tab PO tid x 5 days ACYCLOVIR 91191347934 No Longer Active Dinorah Calderon Active ACYCLOVIR 800 MG ORAL TABLET 1 tab PO tid x 5 days ACYCLOVIR 800 MG ORAL TABLET 630584 ACYCLOVIR Inactive BENADRYL 25 MG ORAL CAPSULE 1 po q8hr PRN Congestion BENADRYL 25 MG ORAL CAPSULE DIPHENHYDRAMINE HCL Inactive PERMETHRIN 5 % EXTERNAL CREAM apply neck to toes tonight and then rinse off in morning. repeat at 7 days PERMETHRIN 5 % EXTERNAL CREAM 063261 PERMETHRIN Inactive SPRINTEC 28 0.25-35 MG-MCG ORAL TABLET 1 pill by mouth daily 2018 SPRINTEC 28 0.25-35 MG-MCG ORAL TABLET 919334 NORGESTIMATE-ETH ESTRADIOL Inactive DOXYCYCLINE MONOHYDRATE 100 MG ORAL CAPSULE 1 tablet daily for cystic acne DOXYCYCLINE MONOHYDRATE 100 MG ORAL CAPSULE 2601439 DOXYCYCLINE MONOHYDRATE Inactive PROVERA 10 MG ORAL TABLET 1 tablet by mouth daily PROVERA 10 MG ORAL TABLET 2176322 MEDROXYPROGESTERONE ACETATE Inactive PREDNISONE 20 MG ORAL TABLET 2 tabs daily for 3 days, 1 tab daily for 3 days, 1/2 tab daily for 2 days PREDNISONE 20 MG ORAL TABLET 618822 PREDNISONE Inactive PROMETRIUM 200 MG ORAL CAPSULE two tabs PO qhs x 10 days PROMETRIUM 200 MG ORAL CAPSULE 661191 PROGESTERONE MICRONIZED Inactive Encounters Code Encounter Date Provider Facility CPT-26163 Level 4 Est. Patient 15:18:41 CDT Alexa Payan MD [facility] CPT-61692 Level 4 Est. Patient 16:00:10 CDT Alexa Payan MD [facility] CPT-40971 Level 3 Est. Patient 20:13:14 HIMS CODER Suhail Kaye MD [facility] CPT-79922 Level 3 Est. Patient 15:25:26 HIMS CODER Galen Mixon MD [facility] CPT-54539 Level 3 Est. Patient 18:43:55 CDT Ousmane MENDIOLA [facility] Procedures Code Procedure Name Date Entry Date Standard Description CPT-06445 Prv Med Est Pt 18-39yrs 11:00:53 HIMS CODER CPT-14730 Sono pelvis non OB uterus ovaries cervix - XRAY USE ONLY 15:50:30 CDT CPT-OV Office Visit 12:15:53 CDT
--- OUTSIDE RECORDS SUMMARY | 2019-02-20 07:45 | XMS REPORT | Clinical Summary ---
Author Author Admin, DIMAS Organization [facility] [employer] Address Unknown Phone Unavailable Allergies, Adverse Reactions, [...] tablet daily for cystic acne DOXYCYCLINE MONOHYDRATE 47715797687 No Longer Active Alexa Payan MD Active CONCEPT DHA 53.5-38-1 MG ORAL CAPSULE one tab PO daily [facility]- [id number]-OMEGA 3 45046397165 Active Alexa Payan MD Active METFORMIN HCL 500 MG ORAL TABLET one tab PO qhs x 1 week, then one tab PO BID x 1 week, then two tabs PO BID METFORMIN HCL 70717160831 Active Alexa Payan MD Active SPRINTEC 28 0.25-35 MG-MCG ORAL TABLET 1 pill by mouth daily 2018 NORGESTIMATE-ETH ESTRADIOL 71667431629 No Longer Active Alexa Payan MD Active PROMETRIUM 200 MG ORAL CAPSULE two tabs PO qhs x 10 days PROGESTERONE MICRONIZED 01127028660 No Longer Active Alexa Payan MD Active PERMETHRIN 5 % EXTERNAL CREAM apply neck to toes tonight and then rinse off in morning. repeat at 7 days PERMETHRIN 43663999798 No Longer Active Suhail Kaye MD Active PREDNISONE 20 MG ORAL TABLET 2 tabs daily for 3 days, 1 tab daily for 3 days, 1/2 tab daily for 2 days PREDNISONE 55202150106 No Longer Active Galen Mixon MD Active PROVERA 10 MG ORAL TABLET 1 tablet by mouth daily MEDROXYPROGESTERONE ACETATE 59679561932 No Longer Active Stefanie Silva LPN Active BENADRYL 25 MG ORAL CAPSULE 1 po q8hr PRN Congestion DIPHENHYDRAMINE HCL 36538737763 No Longer Active Dinorah Calderon Active ACYCLOVIR 800 MG ORAL TABLET 1 tab PO tid x 5 days ACYCLOVIR 18007347440 No Longer Active Dinorah Calderon Active ACYCLOVIR 800 MG ORAL TABLET 1 tab PO tid x 5 days ACYCLOVIR 800 MG ORAL TABLET 840387 ACYCLOVIR Inactive BENADRYL 25 MG ORAL CAPSULE 1 po q8hr PRN Congestion BENADRYL 25 MG ORAL CAPSULE DIPHENHYDRAMINE HCL Inactive PERMETHRIN 5 % EXTERNAL CREAM apply neck to toes tonight and then rinse off in morning. repeat at 7 days PERMETHRIN 5 % EXTERNAL CREAM 381968 PERMETHRIN Inactive SPRINTEC 28 0.25-35 MG-MCG ORAL TABLET 1 pill by mouth daily 2018 SPRINTEC 28 0.25-35 MG-MCG ORAL TABLET 865821 NORGESTIMATE-ETH ESTRADIOL Inactive DOXYCYCLINE MONOHYDRATE 100 MG ORAL CAPSULE 1 tablet daily for cystic acne DOXYCYCLINE MONOHYDRATE 100 MG ORAL CAPSULE 9701610 DOXYCYCLINE MONOHYDRATE Inactive PROVERA 10 MG ORAL TABLET 1 tablet by mouth daily PROVERA 10 MG ORAL TABLET 9729513 MEDROXYPROGESTERONE ACETATE Inactive PREDNISONE 20 MG ORAL TABLET 2 tabs daily for 3 days, 1 tab daily for 3 days, 1/2 tab daily for 2 days PREDNISONE 20 MG ORAL TABLET 031584 PREDNISONE Inactive PROMETRIUM 200 MG ORAL CAPSULE two tabs PO qhs x 10 days PROMETRIUM 200 MG ORAL CAPSULE 226093 PROGESTERONE MICRONIZED Inactive Encounters Code Encounter Date Provider Facility CPT-42109 Level 4 Est. Patient 15:18:41 CDT Alexa Payan MD [facility] CPT-60854 Level 4 Est. Patient 16:00:10 CDT Alexa Payan MD [facility] CPT-68510 Level 3 Est. Patient 20:13:14 ASSISTANT CASE MANAGER Suhail Kaye MD [facility] CPT-09751 Level 3 Est. Patient 15:25:26 ASSISTANT CASE MANAGER Galen Mixon MD [facility] CPT-00973 Level 3 Est. Patient 18:43:55 CDT Ousmane MENDIOLA [facility] Procedures Code Procedure Name Date Entry Date Standard Description CPT-07668 Prv Med Est Pt 18-39yrs 11:00:53 ASSISTANT CASE MANAGER CPT-63278 Sono pelvis non OB uterus ovaries cervix - XRAY USE ONLY 15:50:30 CDT CPT-OV Office Visit 12:15:53 CDT
--- OUTSIDE RECORDS SUMMARY | 2019-02-20 07:45 | XMS REPORT | Clinical Summary ---
Author Author Admin, DIMAS Organization [facility] Address Unknown Phone Unavailable Allergies, Adverse Reactions, [...] 1 pill by mouth daily NORGESTIMATE-ETH ESTRADIOL 65944888200 Active Alexa Payan MD Active PROMETRIUM 200 MG ORAL CAPSULE two tabs PO qhs x 10 days PROGESTERONE MICRONIZED 39985503064 No Longer Active Alexa Payan MD Active PERMETHRIN 5 % EXTERNAL CREAM apply neck to toes tonight and then rinse off in morning. repeat at 7 days PERMETHRIN 90033725674 No Longer Active Suhail Kaye MD Active PREDNISONE 20 MG ORAL TABLET 2 tabs daily for 3 days, 1 tab daily for 3 days, 1/2 tab daily for 2 days PREDNISONE 32766480738 No Longer Active Galen Mixon MD Active PROVERA 10 MG ORAL TABLET 1 tablet by mouth daily MEDROXYPROGESTERONE ACETATE 95016228051 No Longer Active Stefanie Silva LPN Active BENADRYL 25 MG ORAL CAPSULE 1 po q8hr PRN Congestion DIPHENHYDRAMINE HCL 73244417135 No Longer Active Dinorah Yumiko Active ACYCLOVIR 800 MG ORAL TABLET 1 tab PO tid x 5 days ACYCLOVIR 17886615120 No Longer Active Dinorah Yumiko Active ACYCLOVIR 800 MG ORAL TABLET 1 tab PO tid x 5 days ACYCLOVIR 800 MG ORAL TABLET 965779 ACYCLOVIR Inactive BENADRYL 25 MG ORAL CAPSULE 1 po q8hr PRN Congestion BENADRYL 25 MG ORAL CAPSULE DIPHENHYDRAMINE HCL Inactive PERMETHRIN 5 % EXTERNAL CREAM apply neck to toes tonight and then rinse off in morning. repeat at 7 days PERMETHRIN 5 % EXTERNAL CREAM 969220 PERMETHRIN Inactive PROVERA 10 MG ORAL TABLET 1 tablet by mouth daily PROVERA 10 MG ORAL TABLET 6873428 MEDROXYPROGESTERONE ACETATE Inactive PREDNISONE 20 MG ORAL TABLET 2 tabs daily for 3 days, 1 tab daily for 3 days, 1/2 tab daily for 2 days PREDNISONE 20 MG ORAL TABLET 385972 PREDNISONE Inactive PROMETRIUM 200 MG ORAL CAPSULE two tabs PO qhs x 10 days PROMETRIUM 200 MG ORAL CAPSULE 542872 PROGESTERONE MICRONIZED Inactive Encounters Code Encounter Date Provider Facility CPT-68522 Level 4 Est. Patient 15:18:41 CDT Alexa Payan MD [facility] CPT-24780 Level 4 Est. Patient 16:00:10 CDT Alexa Payan MD [facility] CPT-80045 Level 3 Est. Patient 20:13:14 TOOL CHECKER Suhail Kaye MD [facility] CPT-73782 Level 3 Est. Patient 15:25:26 TOOL CHECKER Galen Mixon MD [facility] CPT-83133 Level 3 Est. Patient 18:43:55 CDT Ousmane MENDIOLA [facility] Procedures Code Procedure Name Date Entry Date Standard Description CPT-94989 Sono pelvis non OB uterus ovaries cervix - XRAY USE ONLY 15:50:30 CDT CPT-OV Office Visit 12:15:53 CDT
--- OUTSIDE RECORDS SUMMARY | 2019-02-20 07:45 | XMS REPORT | Clinical Summary ---
Author Author Admin, DIMAS Organization [facility] [employer] Address Unknown Phone Unavailable Allergies, Adverse Reactions, [...] TABLET 1 tablet by mouth daily FLUCONAZOLE 55358080874 Active Stefanie Silva LPN Active DOXYCYCLINE MONOHYDRATE 100 MG ORAL CAPSULE 1 tablet daily for cystic acne DOXYCYCLINE MONOHYDRATE 45024953267 No Longer Active Alexa Payan MD Active CONCEPT DHA 53.5-38-1 MG ORAL CAPSULE one tab PO daily [facility]- [id number]-KG-OMEGA 3 23495605521 Active Alexa Payan MD Active METFORMIN HCL 500 MG ORAL TABLET one tab PO qhs x 1 week, then one tab PO BID x 1 week, then two tabs PO BID METFORMIN HCL 57225802480 Active Alexa Payan MD Active SPRINTEC 28 0.25-35 MG-MCG ORAL TABLET 1 pill by mouth daily 2018 NORGESTIMATE-ETH ESTRADIOL 33835250264 No Longer Active Alexa Payan MD Active PROMETRIUM 200 MG ORAL CAPSULE two tabs PO qhs x 10 days PROGESTERONE MICRONIZED 04204389533 No Longer Active Alexa Payan MD Active PERMETHRIN 5 % EXTERNAL CREAM apply neck to toes tonight and then rinse off in morning. repeat at 7 days PERMETHRIN 96967781967 No Longer Active Suhail Kaye MD Active PREDNISONE 20 MG ORAL TABLET 2 tabs daily for 3 days, 1 tab daily for 3 days, 1/2 tab daily for 2 days PREDNISONE 59955459554 No Longer Active Galen Mixon MD Active PROVERA 10 MG ORAL TABLET 1 tablet by mouth daily MEDROXYPROGESTERONE ACETATE 78317714787 No Longer Active Stefanie Silva LPN Active BENADRYL 25 MG ORAL CAPSULE 1 po q8hr PRN Congestion DIPHENHYDRAMINE HCL 47425509212 No Longer Active Dinorah Calderon Active ACYCLOVIR 800 MG ORAL TABLET 1 tab PO tid x 5 days ACYCLOVIR 32789724872 No Longer Active Dinorah Yumiko Active ACYCLOVIR 800 MG ORAL TABLET 1 tab PO tid x 5 days ACYCLOVIR 800 MG ORAL TABLET 467040 ACYCLOVIR Inactive BENADRYL 25 MG ORAL CAPSULE 1 po q8hr PRN Congestion BENADRYL 25 MG ORAL CAPSULE DIPHENHYDRAMINE HCL Inactive PERMETHRIN 5 % EXTERNAL CREAM apply neck to toes tonight and then rinse off in morning. repeat at 7 days PERMETHRIN 5 % EXTERNAL CREAM 838768 PERMETHRIN Inactive SPRINTEC 28 0.25-35 MG-MCG ORAL TABLET 1 pill by mouth daily 2018 SPRINTEC 28 0.25-35 MG-MCG ORAL TABLET 257534 NORGESTIMATE-ETH ESTRADIOL Inactive DOXYCYCLINE MONOHYDRATE 100 MG ORAL CAPSULE 1 tablet daily for cystic acne DOXYCYCLINE MONOHYDRATE 100 MG ORAL CAPSULE 7273630 DOXYCYCLINE MONOHYDRATE Inactive PROVERA 10 MG ORAL TABLET 1 tablet by mouth daily PROVERA 10 MG ORAL TABLET 9136516 MEDROXYPROGESTERONE ACETATE Inactive PREDNISONE 20 MG ORAL TABLET 2 tabs daily for 3 days, 1 tab daily for 3 days, 1/2 tab daily for 2 days PREDNISONE 20 MG ORAL TABLET 638820 PREDNISONE Inactive PROMETRIUM 200 MG ORAL CAPSULE two tabs PO qhs x 10 days PROMETRIUM 200 MG ORAL CAPSULE 204178 PROGESTERONE MICRONIZED Inactive Encounters Code Encounter Date Provider Facility CPT-82866 Level 4 Est. Patient 15:18:41 CDT Alexa Payan MD [facility] CPT-97728 Level 4 Est. Patient 16:00:10 CDT Alexa Payan MD [facility] CPT-96059 Level 3 Est. Patient 20:13:14 YIELD ANALYST Suhail Kaye MD [facility] CPT-11085 Level 3 Est. Patient 15:25:26 YIELD ANALYST Galen Mixon MD [facility] CPT-79575 Level 3 Est. Patient 18:43:55 CDT Ousmane MENDIOLA [facility] Procedures Code Procedure Name Date Entry Date Standard Description CPT-39969 Prv Med Est Pt 18-39yrs 11:00:53 YIELD ANALYST CPT-14406 Sono pelvis non OB uterus ovaries cervix - XRAY USE ONLY 15:50:30 CDT CPT-OV Office Visit 12:15:53 CDT
--- OUTSIDE RECORDS SUMMARY | 2019-02-20 07:46 | XMS REPORT | Clinical Summary ---
Author Author Admin, DIMAS Organization [facility] Address Unknown Phone Unavailable Allergies, Adverse Reactions, Alerts Allergy Name Reaction Description Start Date Severity Status Provider No Known Allergies Ivana Cortes Conditions or Problems Problem Name Problem Code Onset Date Status Entry Date Provider Comment Standard Description Annotate Shingles 053.9 Active Ousmane MENDIOLA Herpes zoster without mention of complication Amenorrhea, secondary 626.0 Active Alexa Payan MD Absence of menstruation Underweight 783.22 Active Alexa Payan MD Underweight Skin rash 782.1 Active Galen Mixon MD Rash and other nonspecific skin eruption Medication List Medication Instructions Start Date Stop Date Generic Name NDC Status Provider Patient Instruction PREDNISONE 20 MG TAB 2 tabs daily for 3 days, 1 tab daily for 3 days, 1/2 tab daily for 2 days PREDNISONE 67701204599 Active Galen Mixon MD Active PERMETHRIN 5 % CREA apply neck to toes tonight and then rinse off in morning. repeat at 7 days PERMETHRIN 86162802743 Active Galen Mixon MD Active PROVERA 10 MG TAB 1 tablet by mouth daily MEDROXYPROGESTERONE ACETATE 48457046076 No Longer Active Stefanie Silva LPN Active BENADRYL 25 MG CAP 1 po q8hr PRN Congestion DIPHENHYDRAMINE HCL 53860437166 No Longer Active Dinorah Yumiko Active ACYCLOVIR 800 MG ORAL TABS 1 tab PO tid x 5 days ACYCLOVIR 35050088409 No Longer Active Dinorah Yumiko Active ACYCLOVIR 800 MG ORAL TABS 1 tab PO tid x 5 days ACYCLOVIR 800 MG ORAL TABS 274939 ACYCLOVIR Inactive BENADRYL 25 MG CAP 1 po q8hr PRN Congestion BENADRYL 25 MG CAP 2126638 DIPHENHYDRAMINE HCL Inactive PROVERA 10 MG TAB 1 tablet by mouth daily PROVERA 10 MG TAB 5793539 MEDROXYPROGESTERONE ACETATE Inactive Vital Signs Date Name Value Unit Range Description blood pressure, diastolic - 8462-4 60 mm[Hg] BP [place] blood pressure, systolic - 8480-6 116 mm[Hg] BP sys pulse rate E&M - 8867-4 88 /min Heart rate temperature E&M 99.2 [degF] Body temperature weight E&M - 3141-9 116 [lb_av] Weight Measured blood pressure, diastolic - 8462-4 70 mm[Hg] BP [place] blood pressure, systolic - 8480-6 117 mm[Hg] BP sys pulse rate E&M - 8867-4 90 /min Heart rate temperature E&M 97.5 [degF] Body temperature weight E&M - 3141-9 116 [lb_av] Weight Measured Diagnostic Results Date Name Value Unit Range Description Lab Report: FSH/Adult/470, PROLACTIN - Chemistry follicle stimulating hormone, serum 9.0 m[iU]/mL Lab Report: Thyroid Stimulating Hormone (L), Free Thyroxine (L) - Chemistry TSH 1.54 m[iU]/mL 0.36-3.74 thyroxine, serum, free 0.78 ng/dL 0.76-1.46 Office Visit: amenorrhea - Chemistry human chorionic gonadotropin, urine, qualitative (urine test) Negative Encounters Code Encounter Date Provider Facility CPT-02086 Level 3 Est. Patient 15:25:26 AIRCRAFT MAINTENANCE MANAGER Galen Mixon MD [facility] CPT-92137 Level 3 Est. Patient 18:43:55 CDT Ousmane MENDIOLA [facility] Procedures Code Procedure Name Date Entry Date Standard Description CPT-OV Office Visit 12:15:53 CDT
--- OUTSIDE RECORDS SUMMARY | 2019-02-20 07:46 | XMS REPORT | Clinical Summary ---
Author Author Admin, DIMAS Organization [facility] Address Unknown Phone Unavailable Allergies, Adverse Reactions, Alerts Allergy Name Reaction Description Start Date Severity Status Provider No Known Allergies Stefanie Silva LPN Conditions or Problems Problem Name Problem Code [...] other respiratory manifestations Acne 706.1 Active Alexa Paayn MD Other acne Medication List Medication Instructions Start Date Stop Date Generic Name NDC Status Provider Patient Instruction PROMETRIUM 200 MG ORAL CAPS two tabs PO qhs x 10 days PROGESTERONE MICRONIZED 83164056169 Active Alexa Payan MD Active PERMETHRIN 5 % CREA apply neck to toes tonight and then rinse off in morning. repeat at 7 days PERMETHRIN 41786495560 No Longer Active Suhail Kaye MD Active PREDNISONE 20 MG TAB 2 tabs daily for 3 days, 1 tab daily for 3 days, 1/2 tab daily for 2 days PREDNISONE 83448866858 No Longer Active Galen Mixon MD Active PROVERA 10 MG TAB 1 tablet by mouth daily MEDROXYPROGESTERONE ACETATE 02335400484 No Longer Active Stefanie Silva LPN Active BENADRYL 25 MG CAP 1 po q8hr PRN Congestion DIPHENHYDRAMINE HCL 30038584814 No Longer Active Dinorah Calderon Active ACYCLOVIR 800 MG ORAL TABS 1 tab PO tid x 5 days ACYCLOVIR 41977829652 No Longer Active Dinorah Yumiko Active ACYCLOVIR 800 MG ORAL TABS 1 tab PO tid x 5 days ACYCLOVIR 800 MG ORAL TABS 148034 ACYCLOVIR Inactive BENADRYL 25 MG CAP 1 po q8hr PRN Congestion BENADRYL 25 MG CAP DIPHENHYDRAMINE HCL Inactive PERMETHRIN 5 % CREA apply neck to toes tonight and then rinse off in morning. repeat at 7 days PERMETHRIN 5 % CREA 015199 PERMETHRIN Inactive PROVERA 10 MG TAB 1 tablet by mouth daily PROVERA 10 MG TAB 3462989 MEDROXYPROGESTERONE ACETATE Inactive PREDNISONE 20 MG TAB 2 tabs daily for 3 days, 1 tab daily for 3 days, 1/2 tab daily for 2 days PREDNISONE 20 MG TAB 668556 PREDNISONE Inactive Vital Signs Date Name Value Unit Range Description blood pressure, diastolic - 8462-4 73 mm[Hg] BP [place] blood pressure, systolic - 8480-6 133 mm[Hg] BP sys height E&M - 8302-2 67 [in_us] Bdy height pulse rate E&M - 8867-4 81 /min Heart rate temperature E&M 98.8 [degF] Body temperature weight E&M - 3141-9 113.4 [lb_av] Weight Measured blood pressure, diastolic - 8462-4 77 mm[Hg] BP [place] blood pressure, systolic - 8480-6 121 mm[Hg] BP sys pulse rate E&M - 8867-4 97 /min Heart rate temperature E&M 98.6 [degF] Body temperature weight E&M - 3141-9 108 [lb_av] Weight Measured blood pressure, diastolic - 8462-4 60 mm[Hg] BP [place] blood pressure, systolic - 8480-6 116 mm[Hg] BP sys pulse rate E&M - 8867-4 88 /min Heart rate temperature E&M 99.2 [degF] Body temperature weight E&M - 3141-9 116 [lb_av] Weight Measured Diagnostic Results Date Name Value Unit Range Description Lab Report: FSH/Adult/470, LH/Adult/615, PROLACTIN, DHEA S, TSH/899, T4, ... - Chemistry follicle stimulating hormone, serum 8.4 m[iU]/mL luteinizing hormone, serum 25.6 m[iU]/mL Office Visit: Consult Control - Chemistry human chorionic gonadotropin, urine, qualitative (urine test) Negative Encounters Code Encounter Date Provider Facility CPT-68894 Level 4 Est. Patient 16:00:10 CDT Alexa Payna MD [facility] CPT-62306 Level 3 Est. Patient 20:13:14 CURATOR OF PHOTOGRAPHY AND PRINTS Suhail Kaye MD [facility] CPT-88121 Level 3 Est. Patient 15:25:26 CURATOR OF PHOTOGRAPHY AND PRINTS Galen Mixon MD [facility] CPT-10042 Level 3 Est. Patient 18:43:55 CDT Ousmane MENDIOLA [facility] Procedures Code Procedure Name Date Entry Date Standard Description CPT-OV Office Visit 12:15:53 CDT
--- OUTSIDE RECORDS SUMMARY | 2019-02-20 07:46 | XMS REPORT | Clinical Summary ---
Author Author Admin, Buzz Organization [facility] Address Unknown Phone Unavailable Allergies, Adverse Reactions, [...] 706.1 Active Alexa Payan MD Other acne Medication List Medication Instructions Start Date Stop Date Generic Name NDC Status Provider Patient Instruction PROMETRIUM 200 MG ORAL CAPS two tabs PO qhs x 10 days PROGESTERONE MICRONIZED 68497110231 No Longer Active Alexa Payan MD Active PERMETHRIN 5 % CREA apply neck to toes tonight and then rinse off in morning. repeat at 7 days PERMETHRIN 37649341756 No Longer Active Suhail Kaye MD Active PREDNISONE 20 MG TAB 2 tabs daily for 3 days, 1 tab daily for 3 days, 1/2 tab daily for 2 days PREDNISONE 78811150740 No Longer Active Galen Mixon MD Active PROVERA 10 MG TAB 1 tablet by mouth daily MEDROXYPROGESTERONE ACETATE 55122491123 No Longer Active Stefnaie Silva LPN Active BENADRYL 25 MG CAP 1 po q8hr PRN Congestion DIPHENHYDRAMINE HCL 90693360051 No Longer Active Dinorah Calderon Active ACYCLOVIR 800 MG ORAL TABS 1 tab PO tid x 5 days ACYCLOVIR 78697746521 No Longer Active Dinorah Calderon Active ACYCLOVIR 800 MG ORAL TABS 1 tab PO tid x 5 days ACYCLOVIR 800 MG ORAL TABS 152572 ACYCLOVIR Inactive BENADRYL 25 MG CAP 1 po q8hr PRN Congestion BENADRYL 25 MG CAP DIPHENHYDRAMINE HCL Inactive PERMETHRIN 5 % CREA apply neck to toes tonight and then rinse off in morning. repeat at 7 days PERMETHRIN 5 % CREA 155179 PERMETHRIN Inactive PROVERA 10 MG TAB 1 tablet by mouth daily PROVERA 10 MG TAB 3136203 MEDROXYPROGESTERONE ACETATE Inactive PREDNISONE 20 MG TAB 2 tabs daily for 3 days, 1 tab daily for 3 days, 1/2 tab daily for 2 days PREDNISONE 20 MG TAB 789203 PREDNISONE Inactive PROMETRIUM 200 MG ORAL CAPS two tabs PO qhs x 10 days PROMETRIUM 200 MG ORAL CAPS 101594 PROGESTERONE MICRONIZED Inactive Vital Signs Date Name [...] 8.4 m[iU]/mL luteinizing hormone, serum 25.6 m[iU]/mL Lab Report: TESTOSTERONE, FREE,BIO AND TOTAL - Chemistry testosterone, total 78 ng/dL 2-45 testosterone, serum, free 0.56 ng/dL Units converted. See lab report for original value. testosterone, bioavailable 12.1 ng/dL 0.5-8.5 Office Visit: Consult Control - Chemistry human chorionic gonadotropin, urine, qualitative (urine test) Negative Encounters Code Encounter Date Provider Facility CPT-50752 Level 4 Est. Patient 16:00:10 CDT Alexa Payan MD [facility] CPT-96820 Level 3 Est. Patient 20:13:14 HOUSEHOLD APPLIANCE INSTALLER Suhail Kaye MD [facility] CPT-95590 Level 3 Est. Patient 15:25:26 HOUSEHOLD APPLIANCE INSTALLER Galen Mixon MD [facility] CPT-64863 Level 3 Est. Patient 18:43:55 CDT Ousmane MENDIOLA [facility] Procedures Code Procedure Name Date Entry Date Standard Description CPT-OV Office Visit 12:15:53 CDT
--- OUTSIDE RECORDS SUMMARY | 2019-02-20 07:46 | XMS REPORT | Clinical Summary ---
Author Author Admin, DIMAS Organization [facility] Address Unknown Phone Unavailable Allergies, Adverse [...] PO qhs x 10 days PROGESTERONE MICRONIZED 45774249265 Active Alexa Payan MD Active PERMETHRIN 5 % CREA apply neck to toes tonight and then rinse off in morning. repeat at 7 days PERMETHRIN 88137653164 No Longer Active Suhail Kaye MD Active PREDNISONE 20 MG TAB 2 tabs daily for 3 days, 1 tab daily for 3 days, 1/2 tab daily for 2 days PREDNISONE 92185534058 No Longer Active Galen Mixon MD Active PROVERA 10 MG TAB 1 tablet by mouth daily MEDROXYPROGESTERONE ACETATE 78500729499 No Longer Active Stefanie Silva LPN Active BENADRYL 25 MG CAP 1 po q8hr PRN Congestion DIPHENHYDRAMINE HCL 19563992917 No Longer Active Dinorah Calderon Active ACYCLOVIR 800 MG ORAL TABS 1 tab PO tid x 5 days ACYCLOVIR 83111321470 No Longer Active Dinorah Hernandezna Active ACYCLOVIR 800 MG ORAL TABS 1 tab PO tid x 5 days ACYCLOVIR 800 MG ORAL TABS 438068 ACYCLOVIR Inactive BENADRYL 25 MG CAP 1 po q8hr PRN Congestion BENADRYL 25 MG CAP DIPHENHYDRAMINE HCL Inactive PERMETHRIN 5 % CREA apply neck to toes tonight and then rinse off in morning. repeat at 7 days PERMETHRIN 5 % CREA 345595 PERMETHRIN Inactive PROVERA 10 MG TAB 1 tablet by mouth daily PROVERA 10 MG TAB 4161016 MEDROXYPROGESTERONE ACETATE Inactive PREDNISONE 20 MG TAB 2 tabs daily for 3 days, 1 tab daily for 3 days, 1/2 tab daily for 2 days PREDNISONE 20 MG TAB 449455 PREDNISONE Inactive Vital Signs Date Name Value [...] Negative Encounters Code Encounter Date Provider Facility CPT-80155 Level 4 Est. Patient 16:00:10 CDT Alexa Payan MD [facility] CPT-93358 Level 3 Est. Patient 20:13:14 LAND LAW EXAMINER Suhail Kaye MD [facility] CPT-22078 Level 3 Est. Patient 15:25:26 LAND LAW EXAMINER Galen Mixon MD [facility] CPT-30481 Level 3 Est. Patient 18:43:55 CDT Ousmane MENDIOLA [facility] Procedures Code Procedure Name Date Entry Date Standard Description CPT-OV Office Visit 12:15:53 CDT
--- OUTSIDE RECORDS SUMMARY | 2019-02-20 07:46 | XMS REPORT | Clinical Summary ---
Author Author Admin, DIMAS Organization [facility] [employer] Address Unknown Phone Unavailable Allergies, Adverse Reactions, [...] Provider Patient Instruction SPRINTEC 28 0.25-35 MG-MCG TABS 1 pill by mouth daily NORGESTIMATE-ETH ESTRADIOL 63348249245 Active Alexa Payan MD Active PROMETRIUM 200 MG ORAL CAPS two tabs PO qhs x 10 days PROGESTERONE MICRONIZED 95757052254 No Longer Active Alexa Payan MD Active PERMETHRIN 5 % CREA apply neck to toes tonight and then rinse off in morning. repeat at 7 days PERMETHRIN 91106176569 No Longer Active Suhail Kaye MD Active PREDNISONE 20 MG TAB 2 tabs daily for 3 days, 1 tab daily for 3 days, 1/2 tab daily for 2 days PREDNISONE 15424605235 No Longer Active Galen Mixon MD Active PROVERA 10 MG TAB 1 tablet by mouth daily MEDROXYPROGESTERONE ACETATE 57525353100 No Longer Active Stefanie Silva LPN Active BENADRYL 25 MG CAP 1 po q8hr PRN Congestion DIPHENHYDRAMINE HCL 73108191359 No Longer Active Dinorah Yumiko Active ACYCLOVIR 800 MG ORAL TABS 1 tab PO tid x 5 days ACYCLOVIR 84156883856 No Longer Active Dinorah Yumiko Active ACYCLOVIR 800 MG ORAL TABS 1 tab PO tid x 5 days ACYCLOVIR 800 MG ORAL TABS 512076 ACYCLOVIR Inactive BENADRYL 25 MG CAP 1 po q8hr PRN Congestion BENADRYL 25 MG CAP DIPHENHYDRAMINE HCL Inactive PERMETHRIN 5 % CREA apply neck to toes tonight and then rinse off in morning. repeat at 7 days PERMETHRIN 5 % CREA 635833 PERMETHRIN Inactive PROVERA 10 MG TAB 1 tablet by mouth daily PROVERA 10 MG TAB 7046864 MEDROXYPROGESTERONE ACETATE Inactive PREDNISONE 20 MG TAB 2 tabs daily for 3 days, 1 tab daily for 3 days, 1/2 tab daily for 2 days PREDNISONE 20 MG TAB 482123 PREDNISONE Inactive PROMETRIUM 200 MG ORAL CAPS two tabs PO qhs x 10 days PROMETRIUM 200 MG ORAL CAPS 738698 PROGESTERONE MICRONIZED Inactive Vital Signs Date Name Value Unit Range Description blood pressure, diastolic - 8462-4 71 mm[Hg] BP [place] blood pressure, systolic - 8480-6 111 mm[Hg] BP sys height E&M - 8302-2 67 [in_us] Bdy height pulse rate E&M - 8867-4 76 /min Heart rate temperature E&M 99.0 [degF] Body temperature weight E&M - 3141-9 113 [lb_av] Weight Measured blood pressure, diastolic - 8462-4 73 mm[Hg] [...] Negative Encounters Code Encounter Date Provider Facility CPT-61204 Level 4 Est. Patient 15:18:41 CDT Alexa Payan MD [facility] CPT-75562 Level 4 Est. Patient 16:00:10 CDT Alexa Payan MD [facility] CPT-09691 Level 3 Est. Patient 20:13:14 LIFT SUPERVISOR Suhail Kaye MD [facility] CPT-96023 Level 3 Est. Patient 15:25:26 LIFT SUPERVISOR Galen Mixon MD [facility] CPT-90799 Level 3 Est. Patient 18:43:55 CDT Ousmane MENDIOLA [facility] Procedures Code Procedure Name Date Entry Date Standard Description CPT-83861 Sono pelvis non OB uterus ovaries cervix - XRAY USE ONLY 15:50:30 CDT CPT-OV Office Visit 12:15:53 CDT
--- OUTSIDE RECORDS SUMMARY | 2019-02-20 07:46 | XMS REPORT | Clinical Summary ---
Author Author Admin, DIMAS Organization [facility] Address Unknown Phone Unavailable Allergies, Adverse Reactions, Alerts Allergy Name Reaction Description Start Date Severity Status Provider No Known Allergies Peggyhumberto Acuna Conditions or Problems Problem Name Problem Code Onset Date Status Entry Date Provider Comment Standard Description Annotate Shingles 053.9 Active Ousmane MENDIOLA Herpes zoster without mention of complication Amenorrhea, secondary 626.0 Active Alexa Payan MD Absence of menstruation Underweight 783.22 Active Alexa Payan MD Underweight Medication List Medication Instructions Start Date Stop Date Generic Name NDC Status Provider Patient Instruction PROVERA 10 MG TAB 1 tablet by mouth daily MEDROXYPROGESTERONE ACETATE 58563318423 Active Stefanie Silva LPN Active BENADRYL 25 MG CAP 1 po q8hr PRN Congestion DIPHENHYDRAMINE HCL 40910980738 No Longer Active Dionrah Yumiko Active ACYCLOVIR 800 MG ORAL TABS 1 tab PO tid x 5 days ACYCLOVIR 29886442150 No Longer Active Dinorah Yumiko Active ACYCLOVIR 800 MG ORAL TABS 1 tab PO tid x 5 days ACYCLOVIR 800 MG ORAL TABS 215289 ACYCLOVIR Inactive BENADRYL 25 MG CAP 1 po q8hr PRN Congestion BENADRYL 25 MG CAP 8785014 DIPHENHYDRAMINE HCL Inactive Diagnostic Results Date Name Value Unit Range Description Lab Report: FSH/Adult/470, PROLACTIN - Chemistry follicle stimulating hormone, serum 9.0 m[iU]/mL Lab Report: Thyroid Stimulating Hormone (L), Free Thyroxine (L) - Chemistry TSH 1.54 m[iU]/mL 0.36-3.74 thyroxine, serum, free 0.78 ng/dL 0.76-1.46 Encounters Code Encounter Date Provider Facility CPT-46941 Level 3 Est. Patient 18:43:55 CDT Ousmane MENDIOLA [facility] Procedures Code Procedure Name Date Entry Date Standard Description CPT-OV Office Visit 12:15:53 CDT
--- OUTSIDE RECORDS SUMMARY | 2019-02-20 07:46 | XMS REPORT | Clinical Summary ---
Author Author Admin, DIMAS Organization [facility] Address Unknown Phone Unavailable Allergies, Adverse Reactions, [...] 1/2 tab daily for 2 days PREDNISONE 05405575887 Active Galen Mixon MD Active PERMETHRIN 5 % CREA apply neck to toes tonight and then rinse off in morning. repeat at 7 days PERMETHRIN 11926361957 Active Galen Mixon MD Active PROVERA 10 MG TAB 1 tablet by mouth daily MEDROXYPROGESTERONE ACETATE 41844825928 No Longer Active Stefanie Silva LPN Active BENADRYL 25 MG CAP 1 po q8hr PRN Congestion DIPHENHYDRAMINE HCL 83082812325 No Longer Active Dinorah Yumiko Active ACYCLOVIR 800 MG ORAL TABS 1 tab PO tid x 5 days ACYCLOVIR 95720423403 No Longer Active Dinorah Yumiko Active ACYCLOVIR 800 MG ORAL TABS 1 tab PO tid x 5 days ACYCLOVIR 800 MG ORAL TABS 840323 ACYCLOVIR Inactive BENADRYL 25 MG CAP 1 po q8hr PRN Congestion BENADRYL 25 MG CAP 7845828 DIPHENHYDRAMINE HCL Inactive PROVERA 10 MG TAB 1 tablet by mouth daily PROVERA 10 MG TAB 1873203 MEDROXYPROGESTERONE ACETATE Inactive Vital Signs Date Name [...] Hormone (L), Free Thyroxine (L) - Chemistry thyroxine, serum, free 0.78 ng/dL 0.76-1.46 TSH 1.54 m[iU]/mL 0.36-3.74 Office Visit: amenorrhea - Chemistry human chorionic gonadotropin, urine, qualitative (urine test) Negative Encounters Code Encounter Date Provider Facility CPT-79272 Level 3 Est. 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 Patient 18:43:55 CDT Ousmane MENDIOLA [facility] Procedures Code Procedure Name Date Entry Date Standard Description CPT-OV Office Visit 12:15:53 CDT
--- OUTSIDE RECORDS SUMMARY | 2019-02-20 07:47 | XMS REPORT | Clinical Summary ---
Author Author Admin, DIMAS Organization [facility] Address Unknown Phone Unavailable Allergies, Adverse [...] Generic Name NDC Status Provider Patient Instruction BENADRYL 25 MG CAP 1 po q8hr PRN Congestion DIPHENHYDRAMINE HCL 14359194765 No Longer Active Dinorah Yumiko Active ACYCLOVIR 800 MG ORAL TABS 1 tab PO tid x 5 days ACYCLOVIR 55115110430 No Longer Active Dinorah Yumiko Active ACYCLOVIR 800 MG ORAL TABS 1 tab PO tid x 5 days ACYCLOVIR 800 MG ORAL TABS 001799 ACYCLOVIR Inactive BENADRYL 25 MG CAP 1 po q8hr PRN Congestion BENADRYL 25 MG CAP 8732260 DIPHENHYDRAMINE HCL Inactive Diagnostic Results Date Name Value Unit Range Description Lab Report: Thyroid Stimulating Hormone (L), Free Thyroxine (L) - Chemistry TSH 1.54 m[iU]/mL 0.36-3.74 thyroxine, serum, free 0.78 ng/dL 0.76-1.46 Encounters Code Encounter Date Provider Facility CPT-80821 Level 3 Est. Patient 18:43:55 CDT Ousmane MENDIOLA [facility] Procedures Code Procedure Name Date Entry Date Standard Description CPT-OV Office Visit 12:15:53 CDT
--- OUTSIDE RECORDS SUMMARY | 2019-02-20 07:47 | XMS REPORT | Clinical Summary ---
Author Author Admin, DIMAS Organization [facility] [employer] Address Unknown Phone Unavailable Allergies, Adverse Reactions, [...] 1 pill by mouth daily NORGESTIMATE-ETH ESTRADIOL 70201251437 Active Alexa Payan MD Active PROMETRIUM 200 MG ORAL CAPS two tabs PO qhs x 10 days PROGESTERONE MICRONIZED 77668774924 No Longer Active Alexa Payan MD Active PERMETHRIN 5 % CREA apply neck to toes tonight and then rinse off in morning. repeat at 7 days PERMETHRIN 32920763751 No Longer Active Suhail Kaye MD Active PREDNISONE 20 MG TAB 2 tabs daily for 3 days, 1 tab daily for 3 days, 1/2 tab daily for 2 days PREDNISONE 50557951978 No Longer Active Galen Mixon MD Active PROVERA 10 MG TAB 1 tablet by mouth daily MEDROXYPROGESTERONE ACETATE 07965958452 No Longer Active Stefanie Silva LPN Active BENADRYL 25 MG CAP 1 po q8hr PRN Congestion DIPHENHYDRAMINE HCL 36835137563 No Longer Active Dinorah Yumiko Active ACYCLOVIR 800 MG ORAL TABS 1 tab PO tid x 5 days ACYCLOVIR 10456686607 No Longer Active Dinorah Yumiko Active ACYCLOVIR 800 MG ORAL TABS 1 tab PO tid x 5 days ACYCLOVIR 800 MG ORAL TABS 218725 ACYCLOVIR Inactive BENADRYL 25 MG CAP 1 po q8hr PRN Congestion BENADRYL 25 MG CAP DIPHENHYDRAMINE HCL Inactive PERMETHRIN 5 % CREA apply neck to toes tonight and then rinse off in morning. repeat at 7 days PERMETHRIN 5 % CREA 426705 PERMETHRIN Inactive PROVERA 10 MG TAB 1 tablet by mouth daily PROVERA 10 MG TAB 5602870 MEDROXYPROGESTERONE ACETATE Inactive PREDNISONE 20 MG TAB 2 tabs daily for 3 days, 1 tab daily for 3 days, 1/2 tab daily for 2 days PREDNISONE 20 MG TAB 499216 PREDNISONE Inactive PROMETRIUM 200 MG ORAL CAPS two tabs PO qhs x 10 days PROMETRIUM 200 MG ORAL CAPS 108678 PROGESTERONE MICRONIZED Inactive Vital Signs Date Name [...] Negative Encounters Code Encounter Date Provider Facility CPT-54054 Level 4 Est. Patient 15:18:41 CDT Alexa Payan MD [facility] CPT-07435 Level 4 Est. Patient 16:00:10 CDT Alexa Payan MD [facility] CPT-47928 Level 3 Est. Patient 20:13:14 CUFF KNITTER Suhail Kaye MD [facility] CPT-47428 Level 3 Est. Patient 15:25:26 CUFF KNITTER Galen Mixon MD [facility] CPT-59417 Level 3 Est. Patient 18:43:55 CDT Ousmane MENDIOLA [facility] Procedures Code Procedure Name Date Entry Date Standard Description CPT-29732 Sono pelvis non OB uterus ovaries cervix - XRAY USE ONLY 15:50:30 CDT CPT-OV Office Visit 12:15:53 CDT
--- OUTSIDE RECORDS SUMMARY | 2019-02-20 07:47 | XMS REPORT | Clinical Summary ---
Author Author Admin, DIMAS Organization [facility] [employer] Address Unknown Phone Unavailable Allergies, Adverse Reactions, Alerts Allergy Name Reaction Description Start Date Severity Status Provider No Known Allergies Estela Acuña Conditions or Problems Problem Name Problem Code [...] PO qhs x 10 days PROGESTERONE MICRONIZED 12105960036 Active Alexa Payan MD Active PERMETHRIN 5 % CREA apply neck to toes tonight and then rinse off in morning. repeat at 7 days PERMETHRIN 61457970419 No Longer Active Suhail Kaye MD Active PREDNISONE 20 MG TAB 2 tabs daily for 3 days, 1 tab daily for 3 days, 1/2 tab daily for 2 days PREDNISONE 19819710364 No Longer Active Galen Mixon MD Active PROVERA 10 MG TAB 1 tablet by mouth daily MEDROXYPROGESTERONE ACETATE 78389778563 No Longer Active Stefanie Silva LPN Active BENADRYL 25 MG CAP 1 po q8hr PRN Congestion DIPHENHYDRAMINE HCL 51771723879 No Longer Active Dinorah Calderon Active ACYCLOVIR 800 MG ORAL TABS 1 tab PO tid x 5 days ACYCLOVIR 09790860393 No Longer Active Dinorah Calderon Active ACYCLOVIR 800 MG ORAL TABS 1 tab PO tid x 5 days ACYCLOVIR 800 MG ORAL TABS 530347 ACYCLOVIR Inactive BENADRYL 25 MG CAP 1 po q8hr PRN Congestion BENADRYL 25 MG CAP DIPHENHYDRAMINE HCL Inactive PERMETHRIN 5 % CREA apply neck to toes tonight and then rinse off in morning. repeat at 7 days PERMETHRIN 5 % CREA 790122 PERMETHRIN Inactive PROVERA 10 MG TAB 1 tablet by mouth daily PROVERA 10 MG TAB 5909690 MEDROXYPROGESTERONE ACETATE Inactive PREDNISONE 20 MG TAB 2 tabs daily for 3 days, 1 tab daily for 3 days, 1/2 tab daily for 2 days PREDNISONE 20 MG TAB 297780 PREDNISONE Inactive Vital Signs Date Name Value Unit Range Description blood pressure, diastolic - 8462-4 77 mm[Hg] [...] 8.4 m[iU]/mL luteinizing hormone, serum 25.6 m[iU]/mL Encounters Code Encounter Date Provider Facility CPT-70935 Level 4 Est. Patient 16:00:10 CDT Alexa Payan MD [facility] CPT-42765 Level 3 Est. 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 Patient 15:25:26 YARDING AND FOLDING MACHINE OPERATOR Galen Mixon MD [facility] CPT-39288 Level 3 Est. Patient 18:43:55 CDT Ousmane MENDIOLA [facility] Procedures Code Procedure Name Date Entry Date Standard Description CPT-OV Office Visit 12:15:53 CDT
--- OUTSIDE RECORDS SUMMARY | 2019-02-20 07:47 | XMS REPORT | Clinical Summary ---
Author Author Admin, DIMAS Organization [facility] Address Unknown Phone Unavailable Allergies, Adverse Reactions, [...] 1 pill by mouth daily NORGESTIMATE-ETH ESTRADIOL 85709880995 Active Alexa Payan MD Active PROMETRIUM 200 MG ORAL CAPS two tabs PO qhs x 10 days PROGESTERONE MICRONIZED 63047949850 No Longer Active Alexa Payan MD Active PERMETHRIN 5 % CREA apply neck to toes tonight and then rinse off in morning. repeat at 7 days PERMETHRIN 02070297729 No Longer Active Suhail Kaye MD Active PREDNISONE 20 MG TAB 2 tabs daily for 3 days, 1 tab daily for 3 days, 1/2 tab daily for 2 days PREDNISONE 45669953084 No Longer Active Galen Mixon MD Active PROVERA 10 MG TAB 1 tablet by mouth daily MEDROXYPROGESTERONE ACETATE 73497211058 No Longer Active Stefanie Silva LPN Active BENADRYL 25 MG CAP 1 po q8hr PRN Congestion DIPHENHYDRAMINE HCL 80860143477 No Longer Active Dinorah Yumiko Active ACYCLOVIR 800 MG ORAL TABS 1 tab PO tid x 5 days ACYCLOVIR 28487277678 No Longer Active Dinorah Yumiko Active ACYCLOVIR 800 MG ORAL TABS 1 tab PO tid x 5 days ACYCLOVIR 800 MG ORAL TABS 556407 ACYCLOVIR Inactive BENADRYL 25 MG CAP 1 po q8hr PRN Congestion BENADRYL 25 MG CAP DIPHENHYDRAMINE HCL Inactive PERMETHRIN 5 % CREA apply neck to toes tonight and then rinse off in morning. repeat at 7 days PERMETHRIN 5 % CREA 279734 PERMETHRIN Inactive PROVERA 10 MG TAB 1 tablet by mouth daily PROVERA 10 MG TAB 9834389 MEDROXYPROGESTERONE ACETATE Inactive PREDNISONE 20 MG TAB 2 tabs daily for 3 days, 1 tab daily for 3 days, 1/2 tab daily for 2 days PREDNISONE 20 MG TAB 563941 PREDNISONE Inactive PROMETRIUM 200 MG ORAL CAPS two tabs PO qhs x 10 days PROMETRIUM 200 MG ORAL CAPS 157812 PROGESTERONE MICRONIZED Inactive Vital Signs Date Name [...] Negative Encounters Code Encounter Date Provider Facility CPT-66567 Level 4 Est. Patient 15:18:41 CDT Alexa Payan MD [facility] CPT-08075 Level 4 Est. Patient 16:00:10 CDT Alexa Payan MD [facility] CPT-96743 Level 3 Est. Patient 20:13:14 LINE ASSEMBLER Suhail Kaye MD [facility] CPT-92071 Level 3 Est. Patient 15:25:26 LINE ASSEMBLER Galen Mixon MD [facility] CPT-24283 Level 3 Est. Patient 18:43:55 CDT Ousmane MENDIOLA [facility] Procedures Code Procedure Name Date Entry Date Standard Description CPT-32488 Sono pelvis non OB uterus ovaries cervix - XRAY USE ONLY 15:50:30 CDT CPT-OV Office Visit 12:15:53 CDT
--- OUTSIDE RECORDS SUMMARY | 2019-02-20 07:47 | XMS REPORT | Clinical Summary ---
Author Author Admin, DIMAS Organization [facility] Address Unknown Phone Unavailable Allergies, Adverse Reactions, [...] 1 pill by mouth daily NORGESTIMATE-ETH ESTRADIOL 74248794690 Active Alexa Payan MD Active PROMETRIUM 200 MG ORAL CAPS two tabs PO qhs x 10 days PROGESTERONE MICRONIZED 79460556331 No Longer Active Alexa Payan MD Active PERMETHRIN 5 % CREA apply neck to toes tonight and then rinse off in morning. repeat at 7 days PERMETHRIN 40159126051 No Longer Active Suhail Kaye MD Active PREDNISONE 20 MG TAB 2 tabs daily for 3 days, 1 tab daily for 3 days, 1/2 tab daily for 2 days PREDNISONE 22827957387 No Longer Active Galen Mixon MD Active PROVERA 10 MG TAB 1 tablet by mouth daily MEDROXYPROGESTERONE ACETATE 90353745329 No Longer Active Stefanie Silva LPN Active BENADRYL 25 MG CAP 1 po q8hr PRN Congestion DIPHENHYDRAMINE HCL 76910118065 No Longer Active Dinorah Yumiko Active ACYCLOVIR 800 MG ORAL TABS 1 tab PO tid x 5 days ACYCLOVIR 71650822354 No Longer Active Dinorah Yumiko Active ACYCLOVIR 800 MG ORAL TABS 1 tab PO tid x 5 days ACYCLOVIR 800 MG ORAL TABS 491128 ACYCLOVIR Inactive BENADRYL 25 MG CAP 1 po q8hr PRN Congestion BENADRYL 25 MG CAP DIPHENHYDRAMINE HCL Inactive PERMETHRIN 5 % CREA apply neck to toes tonight and then rinse off in morning. repeat at 7 days PERMETHRIN 5 % CREA 373601 PERMETHRIN Inactive PROVERA 10 MG TAB 1 tablet by mouth daily PROVERA 10 MG TAB 2393254 MEDROXYPROGESTERONE ACETATE Inactive PREDNISONE 20 MG TAB 2 tabs daily for 3 days, 1 tab daily for 3 days, 1/2 tab daily for 2 days PREDNISONE 20 MG TAB 029113 PREDNISONE Inactive PROMETRIUM 200 MG ORAL CAPS two tabs PO qhs x 10 days PROMETRIUM 200 MG ORAL CAPS 637802 PROGESTERONE MICRONIZED Inactive Vital Signs Date Name [...] Negative Encounters Code Encounter Date Provider Facility CPT-39451 Level 4 Est. Patient 15:18:41 CDT Alexa Payan MD [facility] CPT-00203 Level 4 Est. Patient 16:00:10 CDT Alexa Payan MD [facility] CPT-35499 Level 3 Est. Patient 20:13:14 ACID REGENERATOR Suhail Kaye MD [facility] CPT-14954 Level 3 Est. Patient 15:25:26 ACID REGENERATOR Galen Mixon MD [facility] CPT-71011 Level 3 Est. Patient 18:43:55 CDT Ousmane MENDIOLA [facility] Procedures Code Procedure Name Date Entry Date Standard Description CPT-24885 Sono pelvis non OB uterus ovaries cervix - XRAY USE ONLY 15:50:30 CDT CPT-OV Office Visit 12:15:53 CDT
--- OUTSIDE RECORDS SUMMARY | 2019-02-20 07:47 | XMS REPORT | Clinical Summary ---
Author Author Admin, Buzz Organization [facility] Address Unknown Phone Unavailable Allergies, [...] PO qhs x 10 days PROGESTERONE MICRONIZED 75368686432 Active Alexa Payan MD Active PERMETHRIN 5 % CREA apply neck to toes tonight and then rinse off in morning. repeat at 7 days PERMETHRIN 21760705997 No Longer Active Suhail Kaye MD Active PREDNISONE 20 MG TAB 2 tabs daily for 3 days, 1 tab daily for 3 days, 1/2 tab daily for 2 days PREDNISONE 67916835465 No Longer Active Galen Mixon MD Active PROVERA 10 MG TAB 1 tablet by mouth daily MEDROXYPROGESTERONE ACETATE 88745013239 No Longer Active Stefanie Silva LPN Active BENADRYL 25 MG CAP 1 po q8hr PRN Congestion DIPHENHYDRAMINE HCL 51149542719 No Longer Active Dinorah Calderon Active ACYCLOVIR 800 MG ORAL TABS 1 tab PO tid x 5 days ACYCLOVIR 87882343961 No Longer Active Dinorah Hernandezna Active ACYCLOVIR 800 MG ORAL TABS 1 tab PO tid x 5 days ACYCLOVIR 800 MG ORAL TABS 902279 ACYCLOVIR Inactive BENADRYL 25 MG CAP 1 po q8hr PRN Congestion BENADRYL 25 MG CAP DIPHENHYDRAMINE HCL Inactive PERMETHRIN 5 % CREA apply neck to toes tonight and then rinse off in morning. repeat at 7 days PERMETHRIN 5 % CREA 315291 PERMETHRIN Inactive PROVERA 10 MG TAB 1 tablet by mouth daily PROVERA 10 MG TAB 7525197 MEDROXYPROGESTERONE ACETATE Inactive PREDNISONE 20 MG TAB 2 tabs daily for 3 days, 1 tab daily for 3 days, 1/2 tab daily for 2 days PREDNISONE 20 MG TAB 531797 PREDNISONE Inactive Vital Signs Date Name Value [...] Negative Encounters Code Encounter Date Provider Facility CPT-58651 Level 4 Est. Patient 16:00:10 CDT Alexa Payan MD [facility] CPT-33709 Level 3 Est. Patient 20:13:14 WOOL CLASSER Suhail Kaye MD [facility] CPT-86835 Level 3 Est. Patient 15:25:26 WOOL CLASSER aGlen Mixon MD [facility] CPT-00985 Level 3 Est. Patient 18:43:55 CDT Ousmane MENDIOLA [facility] Procedures Code Procedure Name Date Entry Date Standard Description CPT-OV Office Visit 12:15:53 CDT
--- OUTSIDE RECORDS SUMMARY | 2019-02-20 07:48 | XMS REPORT | Clinical Summary ---
Author Author Admin, DIMAS Organization [facility] Address Unknown Phone Unavailable Allergies, Adverse Reactions, [...] PO qhs x 10 days PROGESTERONE MICRONIZED 42797365105 No Longer Active Alexa Payan MD Active PERMETHRIN 5 % CREA apply neck to toes tonight and then rinse off in morning. repeat at 7 days PERMETHRIN 72370468854 No Longer Active Suhail Kaye MD Active PREDNISONE 20 MG TAB 2 tabs daily for 3 days, 1 tab daily for 3 days, 1/2 tab daily for 2 days PREDNISONE 97362310921 No Longer Active Galen Mixon MD Active PROVERA 10 MG TAB 1 tablet by mouth daily MEDROXYPROGESTERONE ACETATE 44022986546 No Longer Active Stefanie Silva LPN Active BENADRYL 25 MG CAP 1 po q8hr PRN Congestion DIPHENHYDRAMINE HCL 33797047116 No Longer Active Dinorah Calderon Active ACYCLOVIR 800 MG ORAL TABS 1 tab PO tid x 5 days ACYCLOVIR 40027128927 No Longer Active Dinorah Hernandezna Active ACYCLOVIR 800 MG ORAL TABS 1 tab PO tid x 5 days ACYCLOVIR 800 MG ORAL TABS 653962 ACYCLOVIR Inactive BENADRYL 25 MG CAP 1 po q8hr PRN Congestion BENADRYL 25 MG CAP DIPHENHYDRAMINE HCL Inactive PERMETHRIN 5 % CREA apply neck to toes tonight and then rinse off in morning. repeat at 7 days PERMETHRIN 5 % CREA 156103 PERMETHRIN Inactive PROVERA 10 MG TAB 1 tablet by mouth daily PROVERA 10 MG TAB 4066276 MEDROXYPROGESTERONE ACETATE Inactive PREDNISONE 20 MG TAB 2 tabs daily for 3 days, 1 tab daily for 3 days, 1/2 tab daily for 2 days PREDNISONE 20 MG TAB 235429 PREDNISONE Inactive PROMETRIUM 200 MG ORAL CAPS two tabs PO qhs x 10 days PROMETRIUM 200 MG ORAL CAPS 131521 PROGESTERONE MICRONIZED Inactive Vital Signs Date Name [...] Negative Encounters Code Encounter Date Provider Facility CPT-06820 Level 4 Est. Patient 16:00:10 CDT Alexa Payan MD [facility] CPT-11247 Level 3 Est. Patient 20:13:14 SUPERVISOR DRYING Suhail Kaye MD [facility] CPT-58658 Level 3 Est. Patient 15:25:26 SUPERVISOR DRYING Galen Mixon MD [facility] CPT-39417 Level 3 Est. Patient 18:43:55 CDT Ousmane MENDIOLA [facility] Procedures Code Procedure Name Date Entry Date Standard Description CPT-OV Office Visit 12:15:53 CDT
--- OUTSIDE RECORDS SUMMARY | 2019-02-20 07:48 | XMS REPORT | Clinical Summary ---
Author Author Admin, DIMAS Organization [facility] Address Unknown Phone Unavailable Allergies, Adverse Reactions, [...] 1 tablet by mouth daily MEDROXYPROGESTERONE ACETATE 36276112371 Active Stefanie Silva LPN Active BENADRYL 25 MG CAP 1 po q8hr PRN Congestion DIPHENHYDRAMINE HCL 01335973220 No Longer Active Dinorah Yumiko Active ACYCLOVIR 800 MG ORAL TABS 1 tab PO tid x 5 days ACYCLOVIR 49442333533 No Longer Active Dinorah Yumiko Active ACYCLOVIR 800 MG ORAL TABS 1 tab PO tid x 5 days ACYCLOVIR 800 MG ORAL TABS 652028 ACYCLOVIR Inactive BENADRYL 25 MG CAP 1 po q8hr PRN Congestion BENADRYL 25 MG CAP 2517695 DIPHENHYDRAMINE HCL Inactive Diagnostic Results Date Name Value Unit Range Description Lab Report: FSH/Adult/470, PROLACTIN - Chemistry follicle stimulating hormone, serum 9.0 m[iU]/mL Lab Report: Thyroid Stimulating Hormone (L), Free Thyroxine (L) - Chemistry TSH 1.54 m[iU]/mL 0.36-3.74 thyroxine, serum, free 0.78 ng/dL 0.76-1.46 Encounters Code Encounter Date Provider Facility CPT-34172 Level 3 Est. Patient 18:43:55 CDT Ousmane MENDIOLA [facility] Procedures Code Procedure Name Date Entry Date Standard Description CPT-OV Office Visit 12:15:53 CDT
--- OUTSIDE RECORDS SUMMARY | 2019-02-20 07:48 | XMS REPORT | Clinical Summary ---
Author Author Admin, DIMAS Organization [facility] Address Unknown Phone Unavailable Allergies, Adverse Reactions, Alerts Allergy Name Reaction Description Start Date Severity Status Provider No Known Allergies Estela Acuña Conditions or Problems Problem Name Problem Code Onset Date Status Entry Date Provider Comment Standard Description Annotate Shingles 053.9 Active Ousmane MENDIOLA Herpes zoster without mention of complication Amenorrhea, secondary 626.0 Active lAexa Payan MD Absence of menstruation Underweight 783.22 Active Alexa Payan MD Underweight Skin rash 782.1 Active Galen Mixon MD Rash and other nonspecific skin eruption Influenza like illness 487.1 Active Suhail Kaye MD Influenza with other respiratory manifestations Medication List Medication Instructions Start Date Stop Date Generic Name NDC Status Provider Patient Instruction PERMETHRIN 5 % CREA apply neck to toes tonight and then rinse off in morning. repeat at 7 days PERMETHRIN 80895010044 No Longer Active Suhail Kaye MD Active PREDNISONE 20 MG TAB 2 tabs daily for 3 days, 1 tab daily for 3 days, 1/2 tab daily for 2 days PREDNISONE 06751498543 No Longer Active Galen Mixon MD Active PROVERA 10 MG TAB 1 tablet by mouth daily MEDROXYPROGESTERONE ACETATE 58462148048 No Longer Active Stefanie Silva LPN Active BENADRYL 25 MG CAP 1 po q8hr PRN Congestion DIPHENHYDRAMINE HCL 94599494811 No Longer Active Dinorah Calderon Active ACYCLOVIR 800 MG ORAL TABS 1 tab PO tid x 5 days ACYCLOVIR 53619213430 No Longer Active Dinorah Calderon Active ACYCLOVIR 800 MG ORAL TABS 1 tab PO tid x 5 days ACYCLOVIR 800 MG ORAL TABS 598951 ACYCLOVIR Inactive BENADRYL 25 MG CAP 1 po q8hr PRN Congestion BENADRYL 25 MG CAP DIPHENHYDRAMINE HCL Inactive PERMETHRIN 5 % CREA apply neck to toes tonight and then rinse off in morning. repeat at 7 days PERMETHRIN 5 % CREA 289632 PERMETHRIN Inactive PROVERA 10 MG TAB 1 tablet by mouth daily PROVERA 10 MG TAB 9717809 MEDROXYPROGESTERONE ACETATE Inactive PREDNISONE 20 MG TAB 2 tabs daily for 3 days, 1 tab daily for 3 days, 1/2 tab daily for 2 days PREDNISONE 20 MG TAB 613528 PREDNISONE Inactive Vital Signs Date Name Value [...] Negative Encounters Code Encounter Date Provider Facility CPT-06256 Level 3 Est. Patient 20:13:[address] SPRINKLER Suhail Kaye MD [facility] CPT-33782 Level 3 Est. Patient 15:25:[address] Galen Mixon MD [facility] CPT-02826 Level 3 Est. Patient 18:43:55 CDT Ousmane MENDIOLA [facility] Procedures Code Procedure Name Date Entry Date Standard Description CPT-OV Office Visit 12:15:53 CDT
--- OUTSIDE RECORDS SUMMARY | 2019-02-20 07:48 | XMS REPORT | Clinical Summary ---
Author Author Admin, DIMAS Organization [facility] Address Unknown Phone Unavailable Allergies, Adverse [...] 1 tablet by mouth daily MEDROXYPROGESTERONE ACETATE 88467171856 Active Stefanie Silva LPN Active BENADRYL 25 MG CAP 1 po q8hr PRN Congestion DIPHENHYDRAMINE HCL 64747376460 No Longer Active Dinorah Yumiko Active ACYCLOVIR 800 MG ORAL TABS 1 tab PO tid x 5 days ACYCLOVIR 54644995443 No Longer Active Dinorah Yumiko Active ACYCLOVIR 800 MG ORAL TABS 1 tab PO tid x 5 days ACYCLOVIR 800 MG ORAL TABS 927544 ACYCLOVIR Inactive BENADRYL 25 MG CAP 1 po q8hr PRN Congestion BENADRYL 25 MG CAP 7148914 DIPHENHYDRAMINE HCL Inactive Diagnostic Results Date Name Value Unit Range Description Lab Report: FSH/Adult/470, PROLACTIN - Chemistry follicle stimulating hormone, serum 9.0 m[iU]/mL Lab Report: Thyroid Stimulating Hormone (L), Free Thyroxine (L) - Chemistry TSH 1.54 m[iU]/mL 0.36-3.74 thyroxine, serum, free 0.78 ng/dL 0.76-1.46 Encounters Code Encounter Date Provider Facility CPT-15368 Level 3 Est. Patient 18:43:55 CDT Ousmane MENDIOLA [facility] Procedures Code Procedure Name Date Entry Date Standard Description CPT-OV Office Visit 12:15:53 CDT
--- OUTSIDE RECORDS SUMMARY | 2019-02-20 07:48 | XMS REPORT | Clinical Summary ---
Author Author Admin, Buzz Organization [facility] Address Unknown Phone Unavailable Allergies, Adverse [...] 1 pill by mouth daily NORGESTIMATE-ETH ESTRADIOL 82053725069 Active Alexa Payan MD Active PROMETRIUM 200 MG ORAL CAPS two tabs PO qhs x 10 days PROGESTERONE MICRONIZED 62052303209 No Longer Active Alexa Payan MD Active PERMETHRIN 5 % CREA apply neck to toes tonight and then rinse off in morning. repeat at 7 days PERMETHRIN 69161778820 No Longer Active Suhail Kaye MD Active PREDNISONE 20 MG TAB 2 tabs daily for 3 days, 1 tab daily for 3 days, 1/2 tab daily for 2 days PREDNISONE 35427558920 No Longer Active Galen Mixon MD Active PROVERA 10 MG TAB 1 tablet by mouth daily MEDROXYPROGESTERONE ACETATE 65468951757 No Longer Active Stefanie Silva LPN Active BENADRYL 25 MG CAP 1 po q8hr PRN Congestion DIPHENHYDRAMINE HCL 33054139587 No Longer Active Dinorah Yumiko Active ACYCLOVIR 800 MG ORAL TABS 1 tab PO tid x 5 days ACYCLOVIR 29617207253 No Longer Active Dinorah Yumiko Active ACYCLOVIR 800 MG ORAL TABS 1 tab PO tid x 5 days ACYCLOVIR 800 MG ORAL TABS 765162 ACYCLOVIR Inactive BENADRYL 25 MG CAP 1 po q8hr PRN Congestion BENADRYL 25 MG CAP DIPHENHYDRAMINE HCL Inactive PERMETHRIN 5 % CREA apply neck to toes tonight and then rinse off in morning. repeat at 7 days PERMETHRIN 5 % CREA 739322 PERMETHRIN Inactive PROVERA 10 MG TAB 1 tablet by mouth daily PROVERA 10 MG TAB 4085832 MEDROXYPROGESTERONE ACETATE Inactive PREDNISONE 20 MG TAB 2 tabs daily for 3 days, 1 tab daily for 3 days, 1/2 tab daily for 2 days PREDNISONE 20 MG TAB 034162 PREDNISONE Inactive PROMETRIUM 200 MG ORAL CAPS two tabs PO qhs x 10 days PROMETRIUM 200 MG ORAL CAPS 939376 PROGESTERONE MICRONIZED Inactive Vital Signs Date Name [...] Negative Encounters Code Encounter Date Provider Facility CPT-09466 Level 4 Est. Patient 15:18:41 CDT Alexa Payan MD [facility] CPT-17840 Level 4 Est. Patient 16:00:10 CDT Alexa Payan MD [facility] CPT-55458 Level 3 Est. Patient 20:13:14 GROUP FITNESS DEPARTMENT HEAD Suhail Kaye MD [facility] CPT-24433 Level 3 Est. Patient 15:25:26 GROUP FITNESS DEPARTMENT HEAD Galen Mixon MD [facility] CPT-89321 Level 3 Est. Patient 18:43:55 CDT Ousmane MENDIOLA [facility] Procedures Code Procedure Name Date Entry Date Standard Description CPT-17739 Sono pelvis non OB uterus ovaries cervix - XRAY USE ONLY 15:50:30 CDT CPT-OV Office Visit 12:15:53 CDT
--- OUTSIDE RECORDS SUMMARY | 2019-02-20 07:48 | XMS REPORT | Clinical Summary ---
Author Author Admin, DIMAS Organization [facility] Address Unknown Phone Unavailable Allergies, Adverse [...] 1 po q8hr PRN Congestion DIPHENHYDRAMINE HCL 57249499483 No Longer Active Dinorah Yumiko Active ACYCLOVIR 800 MG ORAL TABS 1 tab PO tid x 5 days ACYCLOVIR 55012678036 No Longer Active Dinorah Yumiko Active ACYCLOVIR 800 MG ORAL TABS 1 tab PO tid x 5 days ACYCLOVIR 800 MG ORAL TABS 481429 ACYCLOVIR Inactive BENADRYL 25 MG CAP 1 po q8hr PRN Congestion BENADRYL 25 MG CAP 0017288 DIPHENHYDRAMINE HCL Inactive Diagnostic Results Date Name Value Unit Range Description Lab Report: Thyroid Stimulating Hormone (L), Free Thyroxine (L) - Chemistry TSH 1.54 m[iU]/mL 0.36-3.74 thyroxine, serum, free 0.78 ng/dL 0.76-1.46 Encounters Code Encounter Date Provider Facility CPT-12683 Level 3 Est. Patient 18:43:55 CDT Ousmane MENDIOLA [facility] Procedures Code Procedure Name Date Entry Date Standard Description CPT-OV Office Visit 12:15:53 CDT
--- OUTSIDE RECORDS SUMMARY | 2019-02-20 07:48 | XMS REPORT | Clinical Summary ---
Author Author Admin, DIMAS Organization [facility] Address Unknown Phone Unavailable Allergies, Adverse Reactions, [...] 1 pill by mouth daily NORGESTIMATE-ETH ESTRADIOL 68153899012 Active Alexa Payan MD Active PROMETRIUM 200 MG ORAL CAPS two tabs PO qhs x 10 days PROGESTERONE MICRONIZED 48282717464 No Longer Active Alexa Payan MD Active PERMETHRIN 5 % CREA apply neck to toes tonight and then rinse off in morning. repeat at 7 days PERMETHRIN 70533891438 No Longer Active Suhail Kaye MD Active PREDNISONE 20 MG TAB 2 tabs daily for 3 days, 1 tab daily for 3 days, 1/2 tab daily for 2 days PREDNISONE 85680725725 No Longer Active Galen Mixon MD Active PROVERA 10 MG TAB 1 tablet by mouth daily MEDROXYPROGESTERONE ACETATE 53076571240 No Longer Active Stefanie Silva LPN Active BENADRYL 25 MG CAP 1 po q8hr PRN Congestion DIPHENHYDRAMINE HCL 22158831386 No Longer Active Dinorah Yumiko Active ACYCLOVIR 800 MG ORAL TABS 1 tab PO tid x 5 days ACYCLOVIR 78421868322 No Longer Active Dinorah Yumiko Active ACYCLOVIR 800 MG ORAL TABS 1 tab PO tid x 5 days ACYCLOVIR 800 MG ORAL TABS 186036 ACYCLOVIR Inactive BENADRYL 25 MG CAP 1 po q8hr PRN Congestion BENADRYL 25 MG CAP DIPHENHYDRAMINE HCL Inactive PERMETHRIN 5 % CREA apply neck to toes tonight and then rinse off in morning. repeat at 7 days PERMETHRIN 5 % CREA 752876 PERMETHRIN Inactive PROVERA 10 MG TAB 1 tablet by mouth daily PROVERA 10 MG TAB 6251795 MEDROXYPROGESTERONE ACETATE Inactive PREDNISONE 20 MG TAB 2 tabs daily for 3 days, 1 tab daily for 3 days, 1/2 tab daily for 2 days PREDNISONE 20 MG TAB 483880 PREDNISONE Inactive PROMETRIUM 200 MG ORAL CAPS two tabs PO qhs x 10 days PROMETRIUM 200 MG ORAL CAPS 568869 PROGESTERONE MICRONIZED Inactive Vital Signs Date Name [...] Negative Encounters Code Encounter Date Provider Facility CPT-38579 Level 4 Est. Patient 15:18:41 CDT Alexa Payan MD [facility] CPT-42983 Level 4 Est. Patient 16:00:10 CDT Alexa Payan MD [facility] CPT-68008 Level 3 Est. Patient 20:13:14 RN BARIATRIC Suhail Kaye MD [facility] CPT-39856 Level 3 Est. Patient 15:25:26 RN BARIATRIC Galen Mixon MD [facility] CPT-59487 Level 3 Est. Patient 18:43:55 CDT Ousmane MENDIOLA [facility] Procedures Code Procedure Name Date Entry Date Standard Description CPT-97730 Sono pelvis non OB uterus ovaries cervix - XRAY USE ONLY 15:50:30 CDT CPT-OV Office Visit 12:15:53 CDT
--- OUTSIDE RECORDS SUMMARY | 2019-02-20 07:49 | XMS REPORT | Clinical Summary ---
Author Author Admin, DIMAS Organization [facility] Address Unknown Phone Unavailable Allergies, Adverse Reactions, [...] 1 pill by mouth daily NORGESTIMATE-ETH ESTRADIOL 60956968122 Active Alexa Payan MD Active PROMETRIUM 200 MG ORAL CAPS two tabs PO qhs x 10 days PROGESTERONE MICRONIZED 42024672920 No Longer Active Alexa Payan MD Active PERMETHRIN 5 % CREA apply neck to toes tonight and then rinse off in morning. repeat at 7 days PERMETHRIN 76256194115 No Longer Active Suhail Kaye MD Active PREDNISONE 20 MG TAB 2 tabs daily for 3 days, 1 tab daily for 3 days, 1/2 tab daily for 2 days PREDNISONE 78774882714 No Longer Active Galen Mixon MD Active PROVERA 10 MG TAB 1 tablet by mouth daily MEDROXYPROGESTERONE ACETATE 47256830291 No Longer Active Stefanie Silva LPN Active BENADRYL 25 MG CAP 1 po q8hr PRN Congestion DIPHENHYDRAMINE HCL 22587545217 No Longer Active Dinorah Yumiko Active ACYCLOVIR 800 MG ORAL TABS 1 tab PO tid x 5 days ACYCLOVIR 49727340113 No Longer Active Dinorah Yumiko Active ACYCLOVIR 800 MG ORAL TABS 1 tab PO tid x 5 days ACYCLOVIR 800 MG ORAL TABS 328347 ACYCLOVIR Inactive BENADRYL 25 MG CAP 1 po q8hr PRN Congestion BENADRYL 25 MG CAP DIPHENHYDRAMINE HCL Inactive PERMETHRIN 5 % CREA apply neck to toes tonight and then rinse off in morning. repeat at 7 days PERMETHRIN 5 % CREA 786852 PERMETHRIN Inactive PROVERA 10 MG TAB 1 tablet by mouth daily PROVERA 10 MG TAB 4137989 MEDROXYPROGESTERONE ACETATE Inactive PREDNISONE 20 MG TAB 2 tabs daily for 3 days, 1 tab daily for 3 days, 1/2 tab daily for 2 days PREDNISONE 20 MG TAB 787164 PREDNISONE Inactive PROMETRIUM 200 MG ORAL CAPS two tabs PO qhs x 10 days PROMETRIUM 200 MG ORAL CAPS 332920 PROGESTERONE MICRONIZED Inactive Vital Signs Date Name [...] Negative Encounters Code Encounter Date Provider Facility CPT-92525 Level 4 Est. Patient 15:18:41 CDT Alexa Payan MD [facility] CPT-22095 Level 4 Est. Patient 16:00:10 CDT Alexa Payan MD [facility] CPT-97694 Level 3 Est. Patient 20:13:14 LABEL SEWER Suhail Kaye MD [facility] CPT-20482 Level 3 Est. Patient 15:25:26 LABEL SEWER Galen Mixon MD [facility] CPT-34592 Level 3 Est. Patient 18:43:55 CDT Ousmane MENDIOLA [facility] Procedures Code Procedure Name Date Entry Date Standard Description CPT-19750 Sono pelvis non OB uterus ovaries cervix - XRAY USE ONLY 15:50:30 CDT CPT-OV Office Visit 12:15:53 CDT
--- OUTSIDE RECORDS SUMMARY | 2019-02-20 07:49 | XMS REPORT | Clinical Summary ---
Author Author Admin, Buzz Organization [facility] Address Unknown Phone Unavailable Allergies, Adverse Reactions, [...] 1 pill by mouth daily NORGESTIMATE-ETH ESTRADIOL 28457861827 Active Alexa Payan MD Active PROMETRIUM 200 MG ORAL CAPSULE two tabs PO qhs x 10 days PROGESTERONE MICRONIZED 60407455975 No Longer Active Alexa Payan MD Active PERMETHRIN 5 % EXTERNAL CREAM apply neck to toes tonight and then rinse off in morning. repeat at 7 days PERMETHRIN 66839015346 No Longer Active Suhail Kaye MD Active PREDNISONE 20 MG ORAL TABLET 2 tabs daily for 3 days, 1 tab daily for 3 days, 1/2 tab daily for 2 days PREDNISONE 46791202935 No Longer Active Galen Mixon MD Active PROVERA 10 MG ORAL TABLET 1 tablet by mouth daily MEDROXYPROGESTERONE ACETATE 71355190171 No Longer Active Stefanie Silva LPN Active BENADRYL 25 MG ORAL CAPSULE 1 po q8hr PRN Congestion DIPHENHYDRAMINE HCL 56893099271 No Longer Active Dinorah Yumiko Active ACYCLOVIR 800 MG ORAL TABLET 1 tab PO tid x 5 days ACYCLOVIR 66145765694 No Longer Active Dinorah Yumiko Active ACYCLOVIR 800 MG ORAL TABLET 1 tab PO tid x 5 days ACYCLOVIR 800 MG ORAL TABLET 417380 ACYCLOVIR Inactive BENADRYL 25 MG ORAL CAPSULE 1 po q8hr PRN Congestion BENADRYL 25 MG ORAL CAPSULE DIPHENHYDRAMINE HCL Inactive PERMETHRIN 5 % EXTERNAL CREAM apply neck to toes tonight and then rinse off in morning. repeat at 7 days PERMETHRIN 5 % EXTERNAL CREAM 734743 PERMETHRIN Inactive PROVERA 10 MG ORAL TABLET 1 tablet by mouth daily PROVERA 10 MG ORAL TABLET 8183866 MEDROXYPROGESTERONE ACETATE Inactive PREDNISONE 20 MG ORAL TABLET 2 tabs daily for 3 days, 1 tab daily for 3 days, 1/2 tab daily for 2 days PREDNISONE 20 MG ORAL TABLET 993016 PREDNISONE Inactive PROMETRIUM 200 MG ORAL CAPSULE two tabs PO qhs x 10 days PROMETRIUM 200 MG ORAL CAPSULE 149447 PROGESTERONE MICRONIZED Inactive Encounters Code Encounter Date Provider Facility CPT-00936 Level 4 Est. Patient 15:18:41 CDT Alexa Payan MD [facility] CPT-43694 Level 4 Est. Patient 16:00:10 CDT Alexa Payan MD [facility] CPT-96991 Level 3 Est. Patient 20:13:14 SOFTWARE SALES CONSULTANT Suhail Kaye MD [facility] CPT-05013 Level 3 Est. Patient 15:25:26 SOFTWARE SALES CONSULTANT Galen Mixon MD [facility] CPT-96738 Level 3 Est. Patient 18:43:55 CDT Ousmane MENDIOLA [facility] Procedures Code Procedure Name Date Entry Date Standard Description CPT-53220 Sono pelvis non OB uterus ovaries cervix - XRAY USE ONLY 15:50:30 CDT CPT-OV Office Visit 12:15:53 CDT
--- OUTSIDE RECORDS SUMMARY | 2019-02-20 07:49 | XMS REPORT | Clinical Summary ---
Author Author Admin, DIMAS Organization [facility] Address Unknown Phone Unavailable Allergies, Adverse [...] 1 pill by mouth daily NORGESTIMATE-ETH ESTRADIOL 88772683767 Active Alexa Payan MD Active PROMETRIUM 200 MG ORAL CAPSULE two tabs PO qhs x 10 days PROGESTERONE MICRONIZED 55734728651 No Longer Active Alexa Payan MD Active PERMETHRIN 5 % EXTERNAL CREAM apply neck to toes tonight and then rinse off in morning. repeat at 7 days PERMETHRIN 39180686197 No Longer Active Suhail Kaye MD Active PREDNISONE 20 MG ORAL TABLET 2 tabs daily for 3 days, 1 tab daily for 3 days, 1/2 tab daily for 2 days PREDNISONE 68319432323 No Longer Active Galen Mixon MD Active PROVERA 10 MG ORAL TABLET 1 tablet by mouth daily MEDROXYPROGESTERONE ACETATE 82835878501 No Longer Active Stefanie Silva LPN Active BENADRYL 25 MG ORAL CAPSULE 1 po q8hr PRN Congestion DIPHENHYDRAMINE HCL 80057365734 No Longer Active Dinorah Yumiko Active ACYCLOVIR 800 MG ORAL TABLET 1 tab PO tid x 5 days ACYCLOVIR 19603107929 No Longer Active Dinorah Yumiko Active ACYCLOVIR 800 MG ORAL TABLET 1 tab PO tid x 5 days ACYCLOVIR 800 MG ORAL TABLET 364729 ACYCLOVIR Inactive BENADRYL 25 MG ORAL CAPSULE 1 po q8hr PRN Congestion BENADRYL 25 MG ORAL CAPSULE DIPHENHYDRAMINE HCL Inactive PERMETHRIN 5 % EXTERNAL CREAM apply neck to toes tonight and then rinse off in morning. repeat at 7 days PERMETHRIN 5 % EXTERNAL CREAM 868764 PERMETHRIN Inactive PROVERA 10 MG ORAL TABLET 1 tablet by mouth daily PROVERA 10 MG ORAL TABLET 1211445 MEDROXYPROGESTERONE ACETATE Inactive PREDNISONE 20 MG ORAL TABLET 2 tabs daily for 3 days, 1 tab daily for 3 days, 1/2 tab daily for 2 days PREDNISONE 20 MG ORAL TABLET 668074 PREDNISONE Inactive PROMETRIUM 200 MG ORAL CAPSULE two tabs PO qhs x 10 days PROMETRIUM 200 MG ORAL CAPSULE 743687 PROGESTERONE MICRONIZED Inactive Encounters Code Encounter Date Provider Facility CPT-45555 Level 4 Est. Patient 15:18:41 CDT Alexa Payan MD [facility] CPT-18841 Level 4 Est. Patient 16:00:10 CDT Alexa Payan MD [facility] CPT-73926 Level 3 Est. Patient 20:13:14 VP CARDIOVASCULAR SERVICE LINE Suhail Kaye MD [facility] CPT-88153 Level 3 Est. Patient 15:25:26 VP CARDIOVASCULAR SERVICE LINE Galen Mixon MD [facility] CPT-77707 Level 3 Est. Patient 18:43:55 CDT Ousmane MENDIOLA [facility] Procedures Code Procedure Name Date Entry Date Standard Description CPT-09888 Sono pelvis non OB uterus ovaries cervix - XRAY USE ONLY 15:50:30 CDT CPT-OV Office Visit 12:15:53 CDT
--- OUTSIDE RECORDS SUMMARY | 2019-02-20 07:49 | XMS REPORT | Clinical Summary ---
Author Author Admin, Buzz Organization [facility] Address Unknown Phone Unavailable Allergies, Adverse [...] 1 pill by mouth daily NORGESTIMATE-ETH ESTRADIOL 70161618282 Active Alexa Payan MD Active PROMETRIUM 200 MG ORAL CAPS two tabs PO qhs x 10 days PROGESTERONE MICRONIZED 27505069808 No Longer Active Alexa Payan MD Active PERMETHRIN 5 % CREA apply neck to toes tonight and then rinse off in morning. repeat at 7 days PERMETHRIN 53319236977 No Longer Active Suhail Kaye MD Active PREDNISONE 20 MG TAB 2 tabs daily for 3 days, 1 tab daily for 3 days, 1/2 tab daily for 2 days PREDNISONE 08864995307 No Longer Active Galen Mixon MD Active PROVERA 10 MG TAB 1 tablet by mouth daily MEDROXYPROGESTERONE ACETATE 79384895198 No Longer Active Stefanie Silva LPN Active BENADRYL 25 MG CAP 1 po q8hr PRN Congestion DIPHENHYDRAMINE HCL 67799131893 No Longer Active Dinorah Yumiko Active ACYCLOVIR 800 MG ORAL TABS 1 tab PO tid x 5 days ACYCLOVIR 48979217249 No Longer Active Dinorah Yumiko Active ACYCLOVIR 800 MG ORAL TABS 1 tab PO tid x 5 days ACYCLOVIR 800 MG ORAL TABS 428722 ACYCLOVIR Inactive BENADRYL 25 MG CAP 1 po q8hr PRN Congestion BENADRYL 25 MG CAP DIPHENHYDRAMINE HCL Inactive PERMETHRIN 5 % CREA apply neck to toes tonight and then rinse off in morning. repeat at 7 days PERMETHRIN 5 % CREA 635316 PERMETHRIN Inactive PROVERA 10 MG TAB 1 tablet by mouth daily PROVERA 10 MG TAB 5785545 MEDROXYPROGESTERONE ACETATE Inactive PREDNISONE 20 MG TAB 2 tabs daily for 3 days, 1 tab daily for 3 days, 1/2 tab daily for 2 days PREDNISONE 20 MG TAB 930056 PREDNISONE Inactive PROMETRIUM 200 MG ORAL CAPS two tabs PO qhs x 10 days PROMETRIUM 200 MG ORAL CAPS 807685 PROGESTERONE MICRONIZED Inactive Vital Signs Date Name [...] Negative Encounters Code Encounter Date Provider Facility CPT-99515 Level 4 Est. Patient 15:18:41 CDT Alexa Payan MD [facility] CPT-34273 Level 4 Est. Patient 16:00:10 CDT Alexa Payan MD [facility] CPT-94196 Level 3 Est. Patient 20:13:14 PIPE STEM ALIGNER Suhail Kaye MD [facility] CPT-33213 Level 3 Est. Patient 15:25:26 PIPE STEM ALIGNER Galen Mixon MD [facility] CPT-01492 Level 3 Est. Patient 18:43:55 CDT Ousmane MENDIOLA [facility] -[facility] Procedures Code Procedure Name Date Entry Date Standard Description CPT-17667 Sono pelvis non OB uterus ovaries cervix - XRAY USE ONLY 15:50:30 CDT CPT-OV Office Visit 12:15:53 CDT
--- OUTSIDE RECORDS SUMMARY | 2019-02-20 07:49 | XMS REPORT | Clinical Summary ---
Author Author Admin, DIMAS Organization [facility] Address Unknown Phone Unavailable Allergies, Adverse [...] 1 pill by mouth daily NORGESTIMATE-ETH ESTRADIOL 10044197077 Active Alexa Payan MD Active PROMETRIUM 200 MG ORAL CAPSULE two tabs PO qhs x 10 days PROGESTERONE MICRONIZED 60252318197 No Longer Active Alexa Payan MD Active PERMETHRIN 5 % EXTERNAL CREAM apply neck to toes tonight and then rinse off in morning. repeat at 7 days PERMETHRIN 06470145987 No Longer Active Suhail Kaye MD Active PREDNISONE 20 MG ORAL TABLET 2 tabs daily for 3 days, 1 tab daily for 3 days, 1/2 tab daily for 2 days PREDNISONE 52630763058 No Longer Active Galen Mixon MD Active PROVERA 10 MG ORAL TABLET 1 tablet by mouth daily MEDROXYPROGESTERONE ACETATE 73009006509 No Longer Active Stefanie Silva LPN Active BENADRYL 25 MG ORAL CAPSULE 1 po q8hr PRN Congestion DIPHENHYDRAMINE HCL 72550908896 No Longer Active Dinorah Yumiko Active ACYCLOVIR 800 MG ORAL TABLET 1 tab PO tid x 5 days ACYCLOVIR 23153598131 No Longer Active Dinorah Yumiko Active ACYCLOVIR 800 MG ORAL TABLET 1 tab PO tid x 5 days ACYCLOVIR 800 MG ORAL TABLET 094001 ACYCLOVIR Inactive BENADRYL 25 MG ORAL CAPSULE 1 po q8hr PRN Congestion BENADRYL 25 MG ORAL CAPSULE DIPHENHYDRAMINE HCL Inactive PERMETHRIN 5 % EXTERNAL CREAM apply neck to toes tonight and then rinse off in morning. repeat at 7 days PERMETHRIN 5 % EXTERNAL CREAM 683156 PERMETHRIN Inactive PROVERA 10 MG ORAL TABLET 1 tablet by mouth daily PROVERA 10 MG ORAL TABLET 7606032 MEDROXYPROGESTERONE ACETATE Inactive PREDNISONE 20 MG ORAL TABLET 2 tabs daily for 3 days, 1 tab daily for 3 days, 1/2 tab daily for 2 days PREDNISONE 20 MG ORAL TABLET 495330 PREDNISONE Inactive PROMETRIUM 200 MG ORAL CAPSULE two tabs PO qhs x 10 days PROMETRIUM 200 MG ORAL CAPSULE 188959 PROGESTERONE MICRONIZED Inactive Encounters Code Encounter Date Provider Facility CPT-91176 Level 4 Est. Patient 15:18:41 CDT Alexa Payan MD [facility] CPT-16826 Level 4 Est. Patient 16:00:10 CDT Alexa Payan MD [facility] CPT-56039 Level 3 Est. Patient 20:13:14 LUNCHROOM MONITOR Suhail Kaye MD [facility] CPT-43348 Level 3 Est. Patient 15:25:26 LUNCHROOM MONITOR Galen Mixon MD [facility] CPT-26188 Level 3 Est. Patient 18:43:55 CDT Ousmane MENDIOLA [facility] Procedures Code Procedure Name Date Entry Date Standard Description CPT-64735 Sono pelvis non OB uterus ovaries cervix - XRAY USE ONLY 15:50:30 CDT CPT-OV Office Visit 12:15:53 CDT
--- OUTSIDE RECORDS SUMMARY | 2019-02-20 07:49 | XMS REPORT | Clinical Summary ---
Author Author Admin, DIMAS Organization [facility] Address Unknown Phone Unavailable Allergies, Adverse [...] in morning. repeat at 7 days PERMETHRIN 23660670462 No Longer Active Suhail Kaye MD Active PREDNISONE 20 MG TAB 2 tabs daily for 3 days, 1 tab daily for 3 days, 1/2 tab daily for 2 days PREDNISONE 39974118042 No Longer Active Galen Mixon MD Active PROVERA 10 MG TAB 1 tablet by mouth daily MEDROXYPROGESTERONE ACETATE 53404633269 No Longer Active Stefanie Silva LPN Active BENADRYL 25 MG CAP 1 po q8hr PRN Congestion DIPHENHYDRAMINE HCL 62075532384 No Longer Active Dinorah Calderon Active ACYCLOVIR 800 MG ORAL TABS 1 tab PO tid x 5 days ACYCLOVIR 24669878701 No Longer Active Dinorah Calderon Active ACYCLOVIR 800 MG ORAL TABS 1 tab PO tid x 5 days ACYCLOVIR 800 MG ORAL TABS 417149 ACYCLOVIR Inactive BENADRYL 25 MG CAP 1 po q8hr PRN Congestion BENADRYL 25 MG CAP DIPHENHYDRAMINE HCL Inactive PERMETHRIN 5 % CREA apply neck to toes tonight and then rinse off in morning. repeat at 7 days PERMETHRIN 5 % CREA 186479 PERMETHRIN Inactive PROVERA 10 MG TAB 1 tablet by mouth daily PROVERA 10 MG TAB 0091906 MEDROXYPROGESTERONE ACETATE Inactive PREDNISONE 20 MG TAB 2 tabs daily for 3 days, 1 tab daily for 3 days, 1/2 tab daily for 2 days PREDNISONE 20 MG TAB 538827 PREDNISONE Inactive Vital Signs Date Name Value [...] Negative Encounters Code Encounter Date Provider Facility CPT-13405 Level 3 Est. Patient 20:13:14 BAKER TEST Suhail Kaye MD [facility] CPT-49209 Level 3 Est. Patient 15:25:26 BAKER TEST Galen Mixon MD [facility] CPT-01961 Level 3 Est. Patient 18:43:55 CDT Ousmane MENDIOLA [facility] -[facility] Procedures Code Procedure Name Date Entry Date Standard Description CPT-OV Office Visit 12:15:53 CDT
--- OUTSIDE RECORDS SUMMARY | 2019-02-20 07:50 | XMS REPORT | Clinical Summary ---
Author Author Admin, DIMAS Organization [facility] Address Unknown Phone Unavailable Allergies, Adverse Reactions, [...] 1/2 tab daily for 2 days PREDNISONE 27323775248 Active Galen Mixon MD Active PERMETHRIN 5 % CREA apply neck to toes tonight and then rinse off in morning. repeat at 7 days PERMETHRIN 92911247146 Active Galen Mixon MD Active PROVERA 10 MG TAB 1 tablet by mouth daily MEDROXYPROGESTERONE ACETATE 32249853838 No Longer Active Stefanie Silva LPN Active BENADRYL 25 MG CAP 1 po q8hr PRN Congestion DIPHENHYDRAMINE HCL 44411783059 No Longer Active Dinorah Yumiko Active ACYCLOVIR 800 MG ORAL TABS 1 tab PO tid x 5 days ACYCLOVIR 35557143117 No Longer Active Dinorah Yumiko Active ACYCLOVIR 800 MG ORAL TABS 1 tab PO tid x 5 days ACYCLOVIR 800 MG ORAL TABS 899480 ACYCLOVIR Inactive BENADRYL 25 MG CAP 1 po q8hr PRN Congestion BENADRYL 25 MG CAP 4736749 DIPHENHYDRAMINE HCL Inactive PROVERA 10 MG TAB 1 tablet by mouth daily PROVERA 10 MG TAB 0767511 MEDROXYPROGESTERONE ACETATE Inactive Vital Signs Date Name [...] Negative Encounters Code Encounter Date Provider Facility CPT-11596 Level 3 Est. 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 Patient 18:43:[address] [facility] Procedures Code Procedure Name Date Entry Date Standard Description CPT-OV Office Visit 12:15:53 CDT
--- OUTSIDE RECORDS SUMMARY | 2019-02-20 07:50 | XMS REPORT | Clinical Summary ---
Author Author Admin, DIMAS Organization [facility] Address Unknown Phone Unavailable Allergies, Adverse Reactions, [...] 1 pill by mouth daily NORGESTIMATE-ETH ESTRADIOL 08584312764 Active Alexa Payan MD Active PROMETRIUM 200 MG ORAL CAPS two tabs PO qhs x 10 days PROGESTERONE MICRONIZED 10111015541 No Longer Active Alexa Payan MD Active PERMETHRIN 5 % CREA apply neck to toes tonight and then rinse off in morning. repeat at 7 days PERMETHRIN 19034360524 No Longer Active Suhail Kaye MD Active PREDNISONE 20 MG TAB 2 tabs daily for 3 days, 1 tab daily for 3 days, 1/2 tab daily for 2 days PREDNISONE 74185455794 No Longer Active Galen Mixon MD Active PROVERA 10 MG TAB 1 tablet by mouth daily MEDROXYPROGESTERONE ACETATE 00220043223 No Longer Active Stefanie Silva LPN Active BENADRYL 25 MG CAP 1 po q8hr PRN Congestion DIPHENHYDRAMINE HCL 91150660058 No Longer Active Dinorah Yumiko Active ACYCLOVIR 800 MG ORAL TABS 1 tab PO tid x 5 days ACYCLOVIR 02520922349 No Longer Active Dinorah Yumiko Active ACYCLOVIR 800 MG ORAL TABS 1 tab PO tid x 5 days ACYCLOVIR 800 MG ORAL TABS 223773 ACYCLOVIR Inactive BENADRYL 25 MG CAP 1 po q8hr PRN Congestion BENADRYL 25 MG CAP DIPHENHYDRAMINE HCL Inactive PERMETHRIN 5 % CREA apply neck to toes tonight and then rinse off in morning. repeat at 7 days PERMETHRIN 5 % CREA 598153 PERMETHRIN Inactive PROVERA 10 MG TAB 1 tablet by mouth daily PROVERA 10 MG TAB 5028197 MEDROXYPROGESTERONE ACETATE Inactive PREDNISONE 20 MG TAB 2 tabs daily for 3 days, 1 tab daily for 3 days, 1/2 tab daily for 2 days PREDNISONE 20 MG TAB 482727 PREDNISONE Inactive PROMETRIUM 200 MG ORAL CAPS two tabs PO qhs x 10 days PROMETRIUM 200 MG ORAL CAPS 353210 PROGESTERONE MICRONIZED Inactive Vital Signs Date Name [...] Negative Encounters Code Encounter Date Provider Facility CPT-21762 Level 4 Est. Patient 15:18:41 CDT Alexa Payan MD [facility] CPT-60767 Level 4 Est. Patient 16:00:10 CDT Alexa Payan MD [facility] CPT-48918 Level 3 Est. Patient 20:13:14 APPOINTMENT SPECIALIST Suhail Kaye MD [facility] CPT-11748 Level 3 Est. Patient 15:25:26 APPOINTMENT SPECIALIST Galen Mixon MD [facility] CPT-58197 Level 3 Est. Patient 18:43:55 CDT Ousmane MENDIOLA [facility] Procedures Code Procedure Name Date Entry Date Standard Description CPT-93907 Sono pelvis non OB uterus ovaries cervix - XRAY USE ONLY 15:50:30 CDT CPT-OV Office Visit 12:15:53 CDT
--- OUTSIDE RECORDS SUMMARY | 2019-02-20 07:50 | XMS REPORT | Clinical Summary ---
Author Author Admin, DIMAS Organization [facility] Address Unknown Phone Unavailable Allergies, Adverse Reactions, [...] in morning. repeat at 7 days PERMETHRIN 62124442481 No Longer Active Suhail Kaye MD Active PREDNISONE 20 MG TAB 2 tabs daily for 3 days, 1 tab daily for 3 days, 1/2 tab daily for 2 days PREDNISONE 62255567390 No Longer Active Galen Mixon MD Active PROVERA 10 MG TAB 1 tablet by mouth daily MEDROXYPROGESTERONE ACETATE 40176142309 No Longer Active Stefanie Silva LPN Active BENADRYL 25 MG CAP 1 po q8hr PRN Congestion DIPHENHYDRAMINE HCL 53390904971 No Longer Active Dinorah Calderon Active ACYCLOVIR 800 MG ORAL TABS 1 tab PO tid x 5 days ACYCLOVIR 49987425077 No Longer Active Dinorah Calderon Active ACYCLOVIR 800 MG ORAL TABS 1 tab PO tid x 5 days ACYCLOVIR 800 MG ORAL TABS 705546 ACYCLOVIR Inactive BENADRYL 25 MG CAP 1 po q8hr PRN Congestion BENADRYL 25 MG CAP DIPHENHYDRAMINE HCL Inactive PERMETHRIN 5 % CREA apply neck to toes tonight and then rinse off in morning. repeat at 7 days PERMETHRIN 5 % CREA 689214 PERMETHRIN Inactive PROVERA 10 MG TAB 1 tablet by mouth daily PROVERA 10 MG TAB 7294491 MEDROXYPROGESTERONE ACETATE Inactive PREDNISONE 20 MG TAB 2 tabs daily for 3 days, 1 tab daily for 3 days, 1/2 tab daily for 2 days PREDNISONE 20 MG TAB 449904 PREDNISONE Inactive Vital Signs Date Name Value [...] Negative Encounters Code Encounter Date Provider Facility CPT-82152 Level 3 Est. Patient 20:13:14 LICENSED LOAN OFFICER Suhail Kaye MD [facility] CPT-81490 Level 3 Est. Patient 15:25:26 LICENSED LOAN OFFICER Galen Mixon MD [facility] CPT-41918 Level 3 Est. Patient 18:43:55 CDT Ousmane MENDIOLA [facility] -[facility] Procedures Code Procedure Name Date Entry Date Standard Description CPT-OV Office Visit 12:15:53 CDT
--- OUTSIDE RECORDS SUMMARY | 2019-02-20 07:50 | XMS REPORT | Clinical Summary ---
Author Author Admin, Buzz Organization [facility] Address Unknown Phone Unavailable Allergies, [...] 1 pill by mouth daily NORGESTIMATE-ETH ESTRADIOL 47182388343 Active Alexa Payan MD Active PROMETRIUM 200 MG ORAL CAPS two tabs PO qhs x 10 days PROGESTERONE MICRONIZED 34223670872 No Longer Active Alexa Payan MD Active PERMETHRIN 5 % CREA apply neck to toes tonight and then rinse off in morning. repeat at 7 days PERMETHRIN 75377887267 No Longer Active Suhail Kaye MD Active PREDNISONE 20 MG TAB 2 tabs daily for 3 days, 1 tab daily for 3 days, 1/2 tab daily for 2 days PREDNISONE 98429152459 No Longer Active Galen Mixon MD Active PROVERA 10 MG TAB 1 tablet by mouth daily MEDROXYPROGESTERONE ACETATE 16361251137 No Longer Active Stefanie Silva LPN Active BENADRYL 25 MG CAP 1 po q8hr PRN Congestion DIPHENHYDRAMINE HCL 15915412010 No Longer Active Dinorah Yumiko Active ACYCLOVIR 800 MG ORAL TABS 1 tab PO tid x 5 days ACYCLOVIR 99299567917 No Longer Active Dinorah Yumiko Active ACYCLOVIR 800 MG ORAL TABS 1 tab PO tid x 5 days ACYCLOVIR 800 MG ORAL TABS 209516 ACYCLOVIR Inactive BENADRYL 25 MG CAP 1 po q8hr PRN Congestion BENADRYL 25 MG CAP DIPHENHYDRAMINE HCL Inactive PERMETHRIN 5 % CREA apply neck to toes tonight and then rinse off in morning. repeat at 7 days PERMETHRIN 5 % CREA 284533 PERMETHRIN Inactive PROVERA 10 MG TAB 1 tablet by mouth daily PROVERA 10 MG TAB 0205490 MEDROXYPROGESTERONE ACETATE Inactive PREDNISONE 20 MG TAB 2 tabs daily for 3 days, 1 tab daily for 3 days, 1/2 tab daily for 2 days PREDNISONE 20 MG TAB 711598 PREDNISONE Inactive PROMETRIUM 200 MG ORAL CAPS two tabs PO qhs x 10 days PROMETRIUM 200 MG ORAL CAPS 439233 PROGESTERONE MICRONIZED Inactive Vital Signs Date Name [...] Negative Encounters Code Encounter Date Provider Facility CPT-05228 Level 4 Est. Patient 15:18:41 CDT Alexa Payan MD [facility] CPT-75153 Level 4 Est. Patient 16:00:10 CDT Alexa Payan MD [facility] CPT-16602 Level 3 Est. Patient 20:13:14 MEDIA TRAFFIC MANAGER Suhail Kaye MD [facility] CPT-50449 Level 3 Est. Patient 15:25:26 MEDIA TRAFFIC MANAGER Galen Mixon MD [facility] CPT-54139 Level 3 Est. Patient 18:43:55 CDT Ousmane MENDIOLA [facility] -[facility] Procedures Code Procedure Name Date Entry Date Standard Description CPT-15639 Sono pelvis non OB uterus ovaries cervix - XRAY USE ONLY 15:50:30 CDT CPT-OV Office Visit 12:15:53 CDT
--- OUTSIDE RECORDS SUMMARY | 2019-02-20 07:50 | XMS REPORT | Clinical Summary ---
Author Author Admin, DIMAS Organization [facility] Address Unknown [...] 1 pill by mouth daily NORGESTIMATE-ETH ESTRADIOL 97582040345 Active Alexa Paayn MD Active PROMETRIUM 200 MG ORAL CAPSULE two tabs PO qhs x 10 days PROGESTERONE MICRONIZED 46960358724 No Longer Active Alexa Payan MD Active PERMETHRIN 5 % EXTERNAL CREAM apply neck to toes tonight and then rinse off in morning. repeat at 7 days PERMETHRIN 90594295092 No Longer Active Suhail Kaye MD Active PREDNISONE 20 MG ORAL TABLET 2 tabs daily for 3 days, 1 tab daily for 3 days, 1/2 tab daily for 2 days PREDNISONE 28399841996 No Longer Active Galen Mixon MD Active PROVERA 10 MG ORAL TABLET 1 tablet by mouth daily MEDROXYPROGESTERONE ACETATE 71069651423 No Longer Active Stefanie Silva LPN Active BENADRYL 25 MG ORAL CAPSULE 1 po q8hr PRN Congestion DIPHENHYDRAMINE HCL 27952901758 No Longer Active Dinorah Yumiko Active ACYCLOVIR 800 MG ORAL TABLET 1 tab PO tid x 5 days ACYCLOVIR 60255008056 No Longer Active Dinorah Yumiko Active ACYCLOVIR 800 MG ORAL TABLET 1 tab PO tid x 5 days ACYCLOVIR 800 MG ORAL TABLET 734503 ACYCLOVIR Inactive BENADRYL 25 MG ORAL CAPSULE 1 po q8hr PRN Congestion BENADRYL 25 MG ORAL CAPSULE DIPHENHYDRAMINE HCL Inactive PERMETHRIN 5 % EXTERNAL CREAM apply neck to toes tonight and then rinse off in morning. repeat at 7 days PERMETHRIN 5 % EXTERNAL CREAM 643286 PERMETHRIN Inactive PROVERA 10 MG ORAL TABLET 1 tablet by mouth daily PROVERA 10 MG ORAL TABLET 2530733 MEDROXYPROGESTERONE ACETATE Inactive PREDNISONE 20 MG ORAL TABLET 2 tabs daily for 3 days, 1 tab daily for 3 days, 1/2 tab daily for 2 days PREDNISONE 20 MG ORAL TABLET 992976 PREDNISONE Inactive PROMETRIUM 200 MG ORAL CAPSULE two tabs PO qhs x 10 days PROMETRIUM 200 MG ORAL CAPSULE 785059 PROGESTERONE MICRONIZED Inactive Encounters Code Encounter Date Provider Facility CPT-37564 Level 4 Est. Patient 15:18:41 CDT Alexa Payan MD [facility] CPT-19219 Level 4 Est. Patient 16:00:10 CDT Alexa Payan MD [facility] CPT-23676 Level 3 Est. Patient 20:13:14 ORDER ANALYST Suhail Kaye MD [facility] CPT-45297 Level 3 Est. Patient 15:25:26 ORDER ANALYST Galen Mixon MD [facility] CPT-08782 Level 3 Est. Patient 18:43:55 CDT Ousmane MENDIOLA [facility] Procedures Code Procedure Name Date Entry Date Standard Description CPT-90737 Sono pelvis non OB uterus ovaries cervix - XRAY USE ONLY 15:50:30 CDT CPT-OV Office Visit 12:15:53 CDT
--- OUTSIDE RECORDS SUMMARY | 2019-02-20 07:50 | XMS REPORT | Clinical Summary ---
Author Author Admin, Buzz Organization [facility] Address Unknown Phone Unavailable Allergies, [...] 1 pill by mouth daily NORGESTIMATE-ETH ESTRADIOL 91046312377 Active Alexa Payan MD Active PROMETRIUM 200 MG ORAL CAPS two tabs PO qhs x 10 days PROGESTERONE MICRONIZED 86573910643 No Longer Active Alexa Payan MD Active PERMETHRIN 5 % CREA apply neck to toes tonight and then rinse off in morning. repeat at 7 days PERMETHRIN 60118668127 No Longer Active Suhail Kaye MD Active PREDNISONE 20 MG TAB 2 tabs daily for 3 days, 1 tab daily for 3 days, 1/2 tab daily for 2 days PREDNISONE 52614805406 No Longer Active Galen Mixon MD Active PROVERA 10 MG TAB 1 tablet by mouth daily MEDROXYPROGESTERONE ACETATE 36173904768 No Longer Active Stefanie Silva LPN Active BENADRYL 25 MG CAP 1 po q8hr PRN Congestion DIPHENHYDRAMINE HCL 04255267215 No Longer Active Dinorah Yumiko Active ACYCLOVIR 800 MG ORAL TABS 1 tab PO tid x 5 days ACYCLOVIR 67709379067 No Longer Active Dinorah Yumiko Active ACYCLOVIR 800 MG ORAL TABS 1 tab PO tid x 5 days ACYCLOVIR 800 MG ORAL TABS 033706 ACYCLOVIR Inactive BENADRYL 25 MG CAP 1 po q8hr PRN Congestion BENADRYL 25 MG CAP DIPHENHYDRAMINE HCL Inactive PERMETHRIN 5 % CREA apply neck to toes tonight and then rinse off in morning. repeat at 7 days PERMETHRIN 5 % CREA 633433 PERMETHRIN Inactive PROVERA 10 MG TAB 1 tablet by mouth daily PROVERA 10 MG TAB 1552320 MEDROXYPROGESTERONE ACETATE Inactive PREDNISONE 20 MG TAB 2 tabs daily for 3 days, 1 tab daily for 3 days, 1/2 tab daily for 2 days PREDNISONE 20 MG TAB 092568 PREDNISONE Inactive PROMETRIUM 200 MG ORAL CAPS two tabs PO qhs x 10 days PROMETRIUM 200 MG ORAL CAPS 887224 PROGESTERONE MICRONIZED Inactive Vital Signs Date Name [...] Negative Encounters Code Encounter Date Provider Facility CPT-67855 Level 4 Est. Patient 15:18:41 CDT Alexa Payan MD [facility] CPT-43661 Level 4 Est. Patient 16:00:10 CDT Alexa Payan MD [facility] CPT-12757 Level 3 Est. Patient 20:13:14 DIRECTOR WOMEN Suhail Kaye MD [facility] CPT-68033 Level 3 Est. Patient 15:25:26 DIRECTOR WOMEN Galen Mixon MD [facility] CPT-51470 Level 3 Est. Patient 18:43:55 CDT Ousmane MENDIOLA [facility] -[facility] Procedures Code Procedure Name Date Entry Date Standard Description CPT-74070 Sono pelvis non OB uterus ovaries cervix - XRAY USE ONLY 15:50:30 CDT CPT-OV Office Visit 12:15:53 CDT
--- OUTSIDE RECORDS SUMMARY | 2019-02-20 07:51 | XMS REPORT | Clinical Summary ---
Author Author Admin, Buzz Organization [facility] Address Unknown Phone Unavailable Allergies, Adverse Reactions, [...] PO qhs x 10 days PROGESTERONE MICRONIZED 18639126444 Active Alexa Payan MD Active PERMETHRIN 5 % CREA apply neck to toes tonight and then rinse off in morning. repeat at 7 days PERMETHRIN 27823518913 No Longer Active Suhail Kaye MD Active PREDNISONE 20 MG TAB 2 tabs daily for 3 days, 1 tab daily for 3 days, 1/2 tab daily for 2 days PREDNISONE 17958262205 No Longer Active Galen Mixon MD Active PROVERA 10 MG TAB 1 tablet by mouth daily MEDROXYPROGESTERONE ACETATE 64456416351 No Longer Active Stefanie Silva LPN Active BENADRYL 25 MG CAP 1 po q8hr PRN Congestion DIPHENHYDRAMINE HCL 79394238574 No Longer Active Dinorah Calderon Active ACYCLOVIR 800 MG ORAL TABS 1 tab PO tid x 5 days ACYCLOVIR 98790981563 No Longer Active Dinorah Hernandezna Active ACYCLOVIR 800 MG ORAL TABS 1 tab PO tid x 5 days ACYCLOVIR 800 MG ORAL TABS 453274 ACYCLOVIR Inactive BENADRYL 25 MG CAP 1 po q8hr PRN Congestion BENADRYL 25 MG CAP DIPHENHYDRAMINE HCL Inactive PERMETHRIN 5 % CREA apply neck to toes tonight and then rinse off in morning. repeat at 7 days PERMETHRIN 5 % CREA 941290 PERMETHRIN Inactive PROVERA 10 MG TAB 1 tablet by mouth daily PROVERA 10 MG TAB 4171565 MEDROXYPROGESTERONE ACETATE Inactive PREDNISONE 20 MG TAB 2 tabs daily for 3 days, 1 tab daily for 3 days, 1/2 tab daily for 2 days PREDNISONE 20 MG TAB 503226 PREDNISONE Inactive Vital Signs Date Name Value [...] Negative Encounters Code Encounter Date Provider Facility CPT-86301 Level 4 Est. Patient 16:00:10 CDT Alexa Payan MD [facility] CPT-03722 Level 3 Est. Patient 20:13:14 ORTHOPEDIC RADIOLOGIC TECHNOLOGIST Suhail Kaye MD [facility] CPT-10689 Level 3 Est. Patient 15:25:26 ORTHOPEDIC RADIOLOGIC TECHNOLOGIST Galen Mixon MD [facility] CPT-43612 Level 3 Est. Patient 18:43:55 CDT Ousmane MENDIOLA [facility] -[facility] Procedures Code Procedure Name Date Entry Date Standard Description CPT-OV Office Visit 12:15:53 CDT
--- OUTSIDE RECORDS SUMMARY | 2019-02-20 07:51 | XMS REPORT | Clinical Summary ---
Author Author Admin, DIMAS Organization [facility] Address Unknown Phone Unavailable Allergies, Adverse Reactions, Alerts Allergy Name Reaction Description Start Date Severity Status Provider No Known Allergies Peggy Acuna Conditions or Problems Problem Name Problem [...] 1 po q8hr PRN Congestion DIPHENHYDRAMINE HCL 52415541280 No Longer Active Dinorah Yumiko Active ACYCLOVIR 800 MG ORAL TABS 1 tab PO tid x 5 days ACYCLOVIR 94512503815 No Longer Active Dinorah Yumiko Active ACYCLOVIR 800 MG ORAL TABS 1 tab PO tid x 5 days ACYCLOVIR 800 MG ORAL TABS 519797 ACYCLOVIR Inactive BENADRYL 25 MG CAP 1 po q8hr PRN Congestion BENADRYL 25 MG CAP 0879876 DIPHENHYDRAMINE HCL Inactive Diagnostic Results Date Name Value Unit Range Description Lab Report: FSH/Adult/470, PROLACTIN - Chemistry follicle stimulating hormone, serum 9.0 m[iU]/mL Lab Report: Thyroid Stimulating Hormone (L), Free Thyroxine (L) - Chemistry TSH 1.54 m[iU]/mL 0.36-3.74 thyroxine, serum, free 0.78 ng/dL 0.76-1.46 Encounters Code Encounter Date Provider Facility CPT-92880 Level 3 Est. Patient 18:43:55 CDT Ousmane Cadena [facility] -[facility] Procedures Code Procedure Name Date Entry Date Standard Description CPT-OV Office Visit 12:15:53 CDT
--- OUTSIDE RECORDS SUMMARY | 2019-02-20 07:51 | XMS REPORT | Clinical Summary ---
Author Author Admin, DIMAS Organization [employer] Address Unknown Phone Unavailable Allergies, Adverse Reactions, [...] 1 pill by mouth daily NORGESTIMATE-ETH ESTRADIOL 43213539686 Active Alexa Payan MD Active PROMETRIUM 200 MG ORAL CAPS two tabs PO qhs x 10 days PROGESTERONE MICRONIZED 38865221788 No Longer Active Alexa Payan MD Active PERMETHRIN 5 % CREA apply neck to toes tonight and then rinse off in morning. repeat at 7 days PERMETHRIN 37523930549 No Longer Active Suhail Kaye MD Active PREDNISONE 20 MG TAB 2 tabs daily for 3 days, 1 tab daily for 3 days, 1/2 tab daily for 2 days PREDNISONE 75364332624 No Longer Active Galen Mixon MD Active PROVERA 10 MG TAB 1 tablet by mouth daily MEDROXYPROGESTERONE ACETATE 63490290778 No Longer Active Stefanie Silva LPN Active BENADRYL 25 MG CAP 1 po q8hr PRN Congestion DIPHENHYDRAMINE HCL 90669466113 No Longer Active Dinorah Yumiko Active ACYCLOVIR 800 MG ORAL TABS 1 tab PO tid x 5 days ACYCLOVIR 26185673271 No Longer Active Dinorah Yumiko Active ACYCLOVIR 800 MG ORAL TABS 1 tab PO tid x 5 days ACYCLOVIR 800 MG ORAL TABS 185660 ACYCLOVIR Inactive BENADRYL 25 MG CAP 1 po q8hr PRN Congestion BENADRYL 25 MG CAP DIPHENHYDRAMINE HCL Inactive PERMETHRIN 5 % CREA apply neck to toes tonight and then rinse off in morning. repeat at 7 days PERMETHRIN 5 % CREA 601642 PERMETHRIN Inactive PROVERA 10 MG TAB 1 tablet by mouth daily PROVERA 10 MG TAB 9274633 MEDROXYPROGESTERONE ACETATE Inactive PREDNISONE 20 MG TAB 2 tabs daily for 3 days, 1 tab daily for 3 days, 1/2 tab daily for 2 days PREDNISONE 20 MG TAB 590200 PREDNISONE Inactive PROMETRIUM 200 MG ORAL CAPS two tabs PO qhs x 10 days PROMETRIUM 200 MG ORAL CAPS 501581 PROGESTERONE MICRONIZED Inactive Vital Signs Date Name [...] Negative Encounters Code Encounter Date Provider Facility CPT-97888 Level 4 Est. Patient 15:18:41 CDT Alexa Payan MD [facility] CPT-49776 Level 4 Est. Patient 16:00:10 CDT Alexa Payan MD [facility] CPT-21642 Level 3 Est. Patient 20:13:14 INVESTIGATIONS MANAGER Suhail Kaye MD [facility] CPT-76833 Level 3 Est. Patient 15:25:26 INVESTIGATIONS MANAGER Galen Mixon MD [facility] CPT-74451 Level 3 Est. Patient 18:43:55 CDT Ousmane MENDIOLA [facility] -[facility] Procedures Code Procedure Name Date Entry Date Standard Description CPT-OV Office Visit 12:15:53 CDT
--- OUTSIDE RECORDS SUMMARY | 2019-02-20 07:51 | XMS REPORT | Clinical Summary ---
Author Author Admin, DIMAS Organization [facility] Address Unknown Phone Unavailable Allergies, Adverse Reactions, [...] 1/2 tab daily for 2 days PREDNISONE 03444563909 No Longer Active Galen Mixon MD Active PERMETHRIN 5 % CREA apply neck to toes tonight and then rinse off in morning. repeat at 7 days PERMETHRIN 45982597575 Active Galen Mixon MD Active PROVERA 10 MG TAB 1 tablet by mouth daily MEDROXYPROGESTERONE ACETATE 34597308728 No Longer Active Stefanie Silva LPN Active BENADRYL 25 MG CAP 1 po q8hr PRN Congestion DIPHENHYDRAMINE HCL 09463021549 No Longer Active Dinorah Yumiko Active ACYCLOVIR 800 MG ORAL TABS 1 tab PO tid x 5 days ACYCLOVIR 38790301391 No Longer Active Dinorah Yumiko Active ACYCLOVIR 800 MG ORAL TABS 1 tab PO tid x 5 days ACYCLOVIR 800 MG ORAL TABS 708575 ACYCLOVIR Inactive BENADRYL 25 MG CAP 1 po q8hr PRN Congestion BENADRYL 25 MG CAP DIPHENHYDRAMINE HCL Inactive PROVERA 10 MG TAB 1 tablet by mouth daily PROVERA 10 MG TAB 3833926 MEDROXYPROGESTERONE ACETATE Inactive PREDNISONE 20 MG TAB 2 tabs daily for 3 days, 1 tab daily for 3 days, 1/2 tab daily for 2 days PREDNISONE 20 MG TAB 914207 PREDNISONE Inactive Vital Signs Date Name Value [...] Negative Encounters Code Encounter Date Provider Facility CPT-60721 Level 3 Est. Patient 15:25:26 FOLDER SEAMER AUTOMATIC Galen Mixon MD [facility] CPT-62898 Level 3 Est. Patient 18:43:55 CDT Ousmane MENDIOLA [facility] -[facility] Procedures Code Procedure Name Date Entry Date Standard Description CPT-OV Office Visit 12:15:53 CDT
--- OUTSIDE RECORDS SUMMARY | 2019-02-20 07:51 | XMS REPORT | Clinical Summary ---
Author Author Admin, DIMAS Organization [employer] Address Unknown Phone Unavailable Allergies, Adverse Reactions, [...] 1/2 tab daily for 2 days PREDNISONE 87967581654 No Longer Active Galen Mixon MD Active PERMETHRIN 5 % CREA apply neck to toes tonight and then rinse off in morning. repeat at 7 days PERMETHRIN 26485832728 Active Galen Mixon MD Active PROVERA 10 MG TAB 1 tablet by mouth daily MEDROXYPROGESTERONE ACETATE 34455650445 No Longer Active Stefanie Silva LPN Active BENADRYL 25 MG CAP 1 po q8hr PRN Congestion DIPHENHYDRAMINE HCL 85268930757 No Longer Active Dinorah Yumiko Active ACYCLOVIR 800 MG ORAL TABS 1 tab PO tid x 5 days ACYCLOVIR 77391934389 No Longer Active Dinorah Yumiko Active ACYCLOVIR 800 MG ORAL TABS 1 tab PO tid x 5 days ACYCLOVIR 800 MG ORAL TABS 275692 ACYCLOVIR Inactive BENADRYL 25 MG CAP 1 po q8hr PRN Congestion BENADRYL 25 MG CAP DIPHENHYDRAMINE HCL Inactive PROVERA 10 MG TAB 1 tablet by mouth daily PROVERA 10 MG TAB 3035062 MEDROXYPROGESTERONE ACETATE Inactive PREDNISONE 20 MG TAB 2 tabs daily for 3 days, 1 tab daily for 3 days, 1/2 tab daily for 2 days PREDNISONE 20 MG TAB 724670 PREDNISONE Inactive Vital Signs Date Name Value [...] Negative Encounters Code Encounter Date Provider Facility CPT-05969 Level 3 Est. Patient 15:25:26 COUPLER Galen Mixon MD [facility] CPT-13703 Level 3 Est. Patient 18:43:[address] [facility] -[facility] Procedures Code Procedure Name Date Entry Date Standard Description CPT-OV Office Visit 12:15:53 CDT
--- OUTSIDE RECORDS SUMMARY | 2019-02-20 07:51 | XMS REPORT | Clinical Summary ---
[...] PO qhs x 10 days PROGESTERONE MICRONIZED 40532440529 Active Alexa Payan MD Active PERMETHRIN 5 % CREA apply neck to toes tonight and then rinse off in morning. repeat at 7 days PERMETHRIN 78889745039 No Longer Active Suhail Kaye MD Active PREDNISONE 20 MG TAB 2 tabs daily for 3 days, 1 tab daily for 3 days, 1/2 tab daily for 2 days PREDNISONE 91970876912 No Longer Active Galen Mixon MD Active PROVERA 10 MG TAB 1 tablet by mouth daily MEDROXYPROGESTERONE ACETATE 79402799617 No Longer Active Stefanie Silva LPN Active BENADRYL 25 MG CAP 1 po q8hr PRN Congestion DIPHENHYDRAMINE HCL 67235509355 No Longer Active Dinorah Calderon Active ACYCLOVIR 800 MG ORAL TABS 1 tab PO tid x 5 days ACYCLOVIR 81885874951 No Longer Active Dinorah Hernandezna Active ACYCLOVIR 800 MG ORAL TABS 1 tab PO tid x 5 days ACYCLOVIR 800 MG ORAL TABS 829374 ACYCLOVIR Inactive BENADRYL 25 MG CAP 1 po q8hr PRN Congestion BENADRYL 25 MG CAP DIPHENHYDRAMINE HCL Inactive PERMETHRIN 5 % CREA apply neck to toes tonight and then rinse off in morning. repeat at 7 days PERMETHRIN 5 % CREA 684073 PERMETHRIN Inactive PROVERA 10 MG TAB 1 tablet by mouth daily PROVERA 10 MG TAB 9661273 MEDROXYPROGESTERONE ACETATE Inactive PREDNISONE 20 MG TAB 2 tabs daily for 3 days, 1 tab daily for 3 days, 1/2 tab daily for 2 days PREDNISONE 20 MG TAB 112121 PREDNISONE Inactive Vital Signs Date Name Value [...] Negative Encounters Code Encounter Date Provider Facility CPT-06231 Level 4 Est. Patient 16:00:10 CDT Alexa Payan MD [facility] CPT-11235 Level 3 Est. Patient 20:13:14 BATTERY STARTER Suhail Kaye MD [facility] CPT-61317 Level 3 Est. Patient 15:25:26 BATTERY STARTER Galen Mixon MD [facility] CPT-76020 Level 3 Est. Patient 18:43:55 CDT Ousmane MENDIOLA [facility] -[facility] Procedures Code Procedure Name Date Entry Date Standard Description CPT-OV Office Visit 12:15:53 CDT
--- OUTSIDE RECORDS SUMMARY | 2019-02-20 07:51 | XMS REPORT | Clinical Summary ---
Author Author Admin, DIMAS Organization [employer] Address Unknown Phone Unavailable Allergies, Adverse [...] in morning. repeat at 7 days PERMETHRIN 46640347072 No Longer Active Suhail Kaye MD Active PREDNISONE 20 MG TAB 2 tabs daily for 3 days, 1 tab daily for 3 days, 1/2 tab daily for 2 days PREDNISONE 48963503438 No Longer Active Galen Mixon MD Active PROVERA 10 MG TAB 1 tablet by mouth daily MEDROXYPROGESTERONE ACETATE 08473293631 No Longer Active Stefanie Silva LPN Active BENADRYL 25 MG CAP 1 po q8hr PRN Congestion DIPHENHYDRAMINE HCL 75916010237 No Longer Active Dinorah Calderon Active ACYCLOVIR 800 MG ORAL TABS 1 tab PO tid x 5 days ACYCLOVIR 75310730047 No Longer Active Dinorah Calderon Active ACYCLOVIR 800 MG ORAL TABS 1 tab PO tid x 5 days ACYCLOVIR 800 MG ORAL TABS 122238 ACYCLOVIR Inactive BENADRYL 25 MG CAP 1 po q8hr PRN Congestion BENADRYL 25 MG CAP DIPHENHYDRAMINE HCL Inactive PERMETHRIN 5 % CREA apply neck to toes tonight and then rinse off in morning. repeat at 7 days PERMETHRIN 5 % CREA 920592 PERMETHRIN Inactive PROVERA 10 MG TAB 1 tablet by mouth daily PROVERA 10 MG TAB 9614392 MEDROXYPROGESTERONE ACETATE Inactive PREDNISONE 20 MG TAB 2 tabs daily for 3 days, 1 tab daily for 3 days, 1/2 tab daily for 2 days PREDNISONE 20 MG TAB 070474 PREDNISONE Inactive Vital Signs Date Name Value [...] Negative Encounters Code Encounter Date Provider Facility CPT-89204 Level 3 Est. Patient 20:13:14 METAL BUILDINGS ASSEMBLER Suhail Kaye MD [facility] CPT-48045 Level 3 Est. Patient 15:25:26 METAL BUILDINGS ASSEMBLER Galen Mixon MD [facility] CPT-29646 Level 3 Est. Patient 18:43:55 CDT Ousmane MENDIOLA [facility] -[facility] Procedures Code Procedure Name Date Entry Date Standard Description CPT-OV Office Visit 12:15:53 CDT
--- OUTSIDE RECORDS SUMMARY | 2019-02-20 07:52 | XMS REPORT | Clinical Summary ---
Author Author Admin, DIMAS Organization [facility] Address Unknown Phone Unavailable Allergies, Adverse Reactions, Alerts Allergy Name Reaction Description Start Date Severity Status Provider No Known Allergies Dinorah Yumiko Conditions or Problems Problem Name [...] 1 tablet by mouth daily MEDROXYPROGESTERONE ACETATE 49782471494 No Longer Active Stefanie Silva LPN Active BENADRYL 25 MG CAP 1 po q8hr PRN Congestion DIPHENHYDRAMINE HCL 95389058117 No Longer Active Dinorah Yumiko Active ACYCLOVIR 800 MG ORAL TABS 1 tab PO tid x 5 days ACYCLOVIR 22669553763 No Longer Active Dinorah Yumiko Active ACYCLOVIR 800 MG ORAL TABS 1 tab PO tid x 5 days ACYCLOVIR 800 MG ORAL TABS 264135 ACYCLOVIR Inactive BENADRYL 25 MG CAP 1 po q8hr PRN Congestion BENADRYL 25 MG CAP 2705831 DIPHENHYDRAMINE HCL Inactive PROVERA 10 MG TAB 1 tablet by mouth daily PROVERA 10 MG TAB 8768831 MEDROXYPROGESTERONE ACETATE Inactive Vital Signs Date Name Value Unit Range Description blood pressure, diastolic - 8462-4 70 mm[Hg] [...] Negative Encounters Code Encounter Date Provider Facility CPT-06396 Level 3 Est. Patient 18:43:55 CDT Ousmane MENDIOLA [facility] -[facility] Procedures Code Procedure Name Date Entry Date Standard Description CPT-OV Office Visit 12:15:53 CDT
--- OUTSIDE RECORDS SUMMARY | 2019-02-20 07:52 | XMS REPORT | Clinical Summary ---
Author Author Admin, DIMAS Organization [facility] Address Unknown Phone Unavailable Allergies, Adverse Reactions, [...] 1 tablet by mouth daily MEDROXYPROGESTERONE ACETATE 48648313528 No Longer Active Stefanie Silva LPN Active BENADRYL 25 MG CAP 1 po q8hr PRN Congestion DIPHENHYDRAMINE HCL 68287149958 No Longer Active Dinorah Yumiko Active ACYCLOVIR 800 MG ORAL TABS 1 tab PO tid x 5 days ACYCLOVIR 95915574573 No Longer Active Dinorah Yumiko Active ACYCLOVIR 800 MG ORAL TABS 1 tab PO tid x 5 days ACYCLOVIR 800 MG ORAL TABS 074952 ACYCLOVIR Inactive BENADRYL 25 MG CAP 1 po q8hr PRN Congestion BENADRYL 25 MG CAP 5644650 DIPHENHYDRAMINE HCL Inactive PROVERA 10 MG TAB 1 tablet by mouth daily PROVERA 10 MG TAB 6240809 MEDROXYPROGESTERONE ACETATE Inactive Vital Signs Date Name [...] Negative Encounters Code Encounter Date Provider Facility CPT-07534 Level 3 Est. Patient 18:43:55 CDT Ousmane MENDIOLA [facility] -[facility] Procedures Code Procedure Name Date Entry Date Standard Description CPT-OV Office Visit 12:15:53 CDT
--- OUTSIDE RECORDS SUMMARY | 2019-02-20 07:52 | XMS REPORT | Clinical Summary ---
Author Author Admin, DIMAS Organization [facility] Address Unknown Phone Unavailable Allergies, Adverse Reactions, [...] PO qhs x 10 days PROGESTERONE MICRONIZED 32888872879 Active Alexa Payan MD Active PERMETHRIN 5 % CREA apply neck to toes tonight and then rinse off in morning. repeat at 7 days PERMETHRIN 74127499439 No Longer Active Suhail Kaye MD Active PREDNISONE 20 MG TAB 2 tabs daily for 3 days, 1 tab daily for 3 days, 1/2 tab daily for 2 days PREDNISONE 02893565298 No Longer Active Galen Mixon MD Active PROVERA 10 MG TAB 1 tablet by mouth daily MEDROXYPROGESTERONE ACETATE 21179499140 No Longer Active Stefanie Silva LPN Active BENADRYL 25 MG CAP 1 po q8hr PRN Congestion DIPHENHYDRAMINE HCL 23077232636 No Longer Active Dinorah Calderon Active ACYCLOVIR 800 MG ORAL TABS 1 tab PO tid x 5 days ACYCLOVIR 14450140329 No Longer Active Dinorah Hernandezna Active ACYCLOVIR 800 MG ORAL TABS 1 tab PO tid x 5 days ACYCLOVIR 800 MG ORAL TABS 997304 ACYCLOVIR Inactive BENADRYL 25 MG CAP 1 po q8hr PRN Congestion BENADRYL 25 MG CAP DIPHENHYDRAMINE HCL Inactive PERMETHRIN 5 % CREA apply neck to toes tonight and then rinse off in morning. repeat at 7 days PERMETHRIN 5 % CREA 385734 PERMETHRIN Inactive PROVERA 10 MG TAB 1 tablet by mouth daily PROVERA 10 MG TAB 0364838 MEDROXYPROGESTERONE ACETATE Inactive PREDNISONE 20 MG TAB 2 tabs daily for 3 days, 1 tab daily for 3 days, 1/2 tab daily for 2 days PREDNISONE 20 MG TAB 891646 PREDNISONE Inactive Vital Signs Date Name Value [...] Negative Encounters Code Encounter Date Provider Facility CPT-22552 Level 4 Est. Patient 16:00:10 CDT Alexa Payan MD [facility] CPT-44077 Level 3 Est. Patient 20:13:14 SHOVEL ENGINEER Suhail Kaye MD [facility] CPT-27799 Level 3 Est. Patient 15:25:26 SHOVEL ENGINEER Galen Mixon MD [facility] CPT-25493 Level 3 Est. Patient 18:43:[address] [facility] Procedures Code Procedure Name Date Entry Date Standard Description CPT-OV Office Visit 12:15:53 CDT
--- OUTSIDE RECORDS SUMMARY | 2019-02-20 07:52 | XMS REPORT ---
Author Author [facility] Medical Staff Organization [facility] Address [address] [place], [place] [address] Phone [phone] Summary purpose TRANSITION OF CARE AUTO GENERATION Chief Complaint and Reason for Visit No authorized Reason for Visit (Admitting Diagnosis) is available for this visit. Problem list No authorized problems tracked for [...] tests and/or laboratory data RESULTS Routine Urinalysis 80-77-080582:00:00 Result Normal Range Units Color YELLOW Clarity Clear Specific [place] 1.028 pH 5.5 4.5-8.0 Glucose NEGATIVE Bilirubin NEGATIVE Ketones NEGATIVE Protein NEGATIVE Urobilinogen 0.2 0-0.2 E.U./dL Nitrites NEGATIVE Blood NEGATIVE Leukocytes NEGATIVE WBCs 0-5 RBCs 0-5 Squamous Epithelial 1+ Bacteria Occasional Mucous Occasional Microbiology 70-24-145412:30:00 Result Normal Range Units LILY No Yeast Seen Wet [place] No Clue Cells, Trichomonas or Yeast Seen. Body Fluid :00:00 Result Normal Range Units pH 5.5 4.5-8.0 History of procedures No procedures recorded for this patient visit. Functional status Functional Status Finding Observation Time Diet regular 93-20-438862:45 Abdomen Appearance flat 08-64-996604:45 Abdomen soft 16-05-202698:45 Bowel Sounds present 26-70-281061:45 [place] no 44-08-780461:45 Quality sym/unlabored 34-57-223636:45 Cough absent 25-24-994511:45 Airway natural 42-33-651167:45 Oxygen no 42-16-616447:45 Temp >100.4 no 35-34-468895:45 Temp <96.8 no 51-80-812335:45 Chills with rigors no 68-67-322137:45 HR > 90bpm no 95-19-513647:45 Respirations > 20 no 54-00-446267:45 Systolic <90 no 84-45-902406:45 headache stiff neck no :45 Rapid Resp no :45 Nursing Note Discharge instructions reviewed with pt-verbalized understanding. VS obtianed, dc in good condition and ambulatory. :35 Vital signs Type Value Date Respiration Rate 18breaths per minute 96-50-612680:30 Pulse 83beats per minute :30 Oxygen Saturation 100% 44-27-129997:30 BP Systolic 112mmHg 73-16-177011:30 BP Diastolic 82mmHg 06-38-549880:30 Temperature 98.4F 79-48-333913:30 Height 64inches 14-72-671102:30 Weight 112LB 55-39-861659:30 Social history Type Value Smoking Status CURRENT EVERY DAY SMOKER Treatment Plan No treatment plan text is available for this visit. Hospital discharge instructions Dismissal Condition good Disposition on DC home DC Inst/Educ Give yes Flu Vac none
--- OUTSIDE RECORDS SUMMARY | 2019-02-20 07:52 | XMS REPORT | Clinical Summary ---
Author Author Admin, DIMAS Organization [facility] Address Unknown Phone Unavailable Allergies, Adverse [...] in morning. repeat at 7 days PERMETHRIN 87335010351 No Longer Active Suhail Kaye MD Active PREDNISONE 20 MG TAB 2 tabs daily for 3 days, 1 tab daily for 3 days, 1/2 tab daily for 2 days PREDNISONE 50100068827 No Longer Active Galen Mixon MD Active PROVERA 10 MG TAB 1 tablet by mouth daily MEDROXYPROGESTERONE ACETATE 02118970128 No Longer Active Stefanie Silva LPN Active BENADRYL 25 MG CAP 1 po q8hr PRN Congestion DIPHENHYDRAMINE HCL 68603848880 No Longer Active Dinorah Calderon Active ACYCLOVIR 800 MG ORAL TABS 1 tab PO tid x 5 days ACYCLOVIR 29993392784 No Longer Active Dinorah Calderon Active ACYCLOVIR 800 MG ORAL TABS 1 tab PO tid x 5 days ACYCLOVIR 800 MG ORAL TABS 859075 ACYCLOVIR Inactive BENADRYL 25 MG CAP 1 po q8hr PRN Congestion BENADRYL 25 MG CAP DIPHENHYDRAMINE HCL Inactive PERMETHRIN 5 % CREA apply neck to toes tonight and then rinse off in morning. repeat at 7 days PERMETHRIN 5 % CREA 579934 PERMETHRIN Inactive PROVERA 10 MG TAB 1 tablet by mouth daily PROVERA 10 MG TAB 1684117 MEDROXYPROGESTERONE ACETATE Inactive PREDNISONE 20 MG TAB 2 tabs daily for 3 days, 1 tab daily for 3 days, 1/2 tab daily for 2 days PREDNISONE 20 MG TAB 852530 PREDNISONE Inactive Vital Signs Date Name Value [...] pressure, diastolic - 8462-4 70 mm[Hg] BP [place] blood pressure, systolic - 8480-6 117 mm[Hg] [...] Negative Encounters Code Encounter Date Provider Facility CPT-51431 Level 3 Est. Patient 20:13:14 SALES EXECUTIVE Suhail Kaye MD [facility] CPT-86081 Level 3 Est. Patient 15:25:26 SALES EXECUTIVE Galen Mixon MD [facility] CPT-67914 Level 3 Est. Patient 18:43:55 CDT Ousmane MENDIOLA [facility] -[facility] Procedures Code Procedure Name Date Entry Date Standard Description CPT-OV Office Visit 12:15:53 CDT
--- OUTSIDE RECORDS SUMMARY | 2019-02-20 07:52 | XMS REPORT | Continuity of Care Document ---
Demographics x Preferred Language Unknown Marital Status Unknown Christian Affiliation Unknown Race Unknown Ethnic Group Unknown Author Organization Unknown Address Unknown Allergies Active Description Code Type Severity Reaction Onset Reported/Identified Relationship to Patient Clinical Status Yes No known drug allergies [id number] ND N/A N/A Confirmed or Verified Medications There is no data. Problems Date Dx Coded Attending Type Code Diagnosis Diagnosed By 11/14/2018 Z01.419 ROUTINE GYNECOLOGICAL EXAMINATION 11/14/2018 Z31.69 Preconception counseling 11/14/2018 Z68.21 BMI 21-21.9 Procedures There is no data. Results Test Result Range UCG GROUP - 01/30/15 00:00 UCG N Negative UA - 01/30/15 00:00 PH 5.5 4.5-8.0 SG 1.028 UABILI NEGATIVE UABLD NEGATIVE UACOLOR YEL UAGLU NEGATIVE UAKET NEGATIVE UALEUK NEGATIVE UANIT NEGATIVE UAURO 0.2 0-0.2 CLARITY CL PROTEIN NEGATIVE UA WBC R05 UA RBC R05 SQUAMOUS EPITHELIAL CELLS 1+ BACTERIA OCC MUCOUS OCC WET MOUNT - 01/30/15 00:00 WET [place] NOCTY LILY - 01/30/15 00:00 LILY NOYEA CHLAMYDIA GC DNA - 01/30/15 00:00 CHLGCU1 NOT DETECTED NOT DETECTED CHLGCU2 NOT DETECTED NOT DETECTED NOTES: SEE NOTE Encounters ACCT No. Visit Date/Time Discharge Status Pt. Type Provider Facility Loc./Unit Complaint [id number] 01/30/2015 18:26:00 01/30/2015 20:34:00 DIS Emergency BERNADETTE FELTON [facility] EMR [id number] 10/04/2014 00:00:00 Document Registration [id number] 02/06/2018 00:54:28 ACT Document Registration [id number] 01/23/2019 15:17:00 ACT Unknown
--- OUTSIDE RECORDS SUMMARY | 2019-02-20 07:52 | XMS REPORT | Clinical Summary ---
Author Author Admin, DIMAS Organization [employer] Address Unknown Phone Unavailable Allergies, Adverse Reactions, [...] in morning. repeat at 7 days PERMETHRIN 54286823507 No Longer Active Suhail Kaye MD Active PREDNISONE 20 MG TAB 2 tabs daily for 3 days, 1 tab daily for 3 days, 1/2 tab daily for 2 days PREDNISONE 06885710633 No Longer Active Galen Mixon MD Active PROVERA 10 MG TAB 1 tablet by mouth daily MEDROXYPROGESTERONE ACETATE 24698025399 No Longer Active Stefanie Silva LPN Active BENADRYL 25 MG CAP 1 po q8hr PRN Congestion DIPHENHYDRAMINE HCL 03448890465 No Longer Active Dinorah Calderon Active ACYCLOVIR 800 MG ORAL TABS 1 tab PO tid x 5 days ACYCLOVIR 24053219869 No Longer Active Dinorah Calderon Active ACYCLOVIR 800 MG ORAL TABS 1 tab PO tid x 5 days ACYCLOVIR 800 MG ORAL TABS 156038 ACYCLOVIR Inactive BENADRYL 25 MG CAP 1 po q8hr PRN Congestion BENADRYL 25 MG CAP DIPHENHYDRAMINE HCL Inactive PERMETHRIN 5 % CREA apply neck to toes tonight and then rinse off in morning. repeat at 7 days PERMETHRIN 5 % CREA 299298 PERMETHRIN Inactive PROVERA 10 MG TAB 1 tablet by mouth daily PROVERA 10 MG TAB 5564203 MEDROXYPROGESTERONE ACETATE Inactive PREDNISONE 20 MG TAB 2 tabs daily for 3 days, 1 tab daily for 3 days, 1/2 tab daily for 2 days PREDNISONE 20 MG TAB 031569 PREDNISONE Inactive Vital Signs Date Name Value [...] Negative Encounters Code Encounter Date Provider Facility CPT-31819 Level 3 Est. 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 Patient 18:43:55 CDT Ousmane MENDIOLA [facility] Procedures Code Procedure Name Date Entry Date Standard Description CPT-OV Office Visit 12:15:53 CDT
--- OUTSIDE RECORDS SUMMARY | 2019-02-20 07:52 | XMS REPORT | Clinical Summary ---
Author Author Admin, DIMAS Organization [employer] Address Unknown Phone Unavailable Allergies, Adverse Reactions, [...] 1/2 tab daily for 2 days PREDNISONE 69838055406 No Longer Active Galen Mixon MD Active PERMETHRIN 5 % CREA apply neck to toes tonight and then rinse off in morning. repeat at 7 days PERMETHRIN 51294116672 Active Galen Mixon MD Active PROVERA 10 MG TAB 1 tablet by mouth daily MEDROXYPROGESTERONE ACETATE 24765478889 No Longer Active Stefanie Silva LPN Active BENADRYL 25 MG CAP 1 po q8hr PRN Congestion DIPHENHYDRAMINE HCL 97804584564 No Longer Active Dinorah Yumiko Active ACYCLOVIR 800 MG ORAL TABS 1 tab PO tid x 5 days ACYCLOVIR 42288596722 No Longer Active Dinorah Yumiko Active ACYCLOVIR 800 MG ORAL TABS 1 tab PO tid x 5 days ACYCLOVIR 800 MG ORAL TABS 556968 ACYCLOVIR Inactive BENADRYL 25 MG CAP 1 po q8hr PRN Congestion BENADRYL 25 MG CAP DIPHENHYDRAMINE HCL Inactive PROVERA 10 MG TAB 1 tablet by mouth daily PROVERA 10 MG TAB 6190367 MEDROXYPROGESTERONE ACETATE Inactive PREDNISONE 20 MG TAB 2 tabs daily for 3 days, 1 tab daily for 3 days, 1/2 tab daily for 2 days PREDNISONE 20 MG TAB 710252 PREDNISONE Inactive Vital Signs Date Name Value [...] Negative Encounters Code Encounter Date Provider Facility CPT-99182 Level 3 Est. 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 Patient 18:43:55 CDT Ousmane MENDIOLA [facility] Procedures Code Procedure Name Date Entry Date Standard Description CPT-OV Office Visit 12:15:53 CDT
--- OUTSIDE RECORDS SUMMARY | 2019-02-20 07:52 | XMS REPORT | Clinical Summary ---
Author Author Admin, DIMAS Organization [facility] Address Unknown Phone Unavailable Allergies, Adverse Reactions, Alerts Allergy Name Reaction Description Start Date Severity Status Provider No Known Allergies Peggy Acuna Conditions or Problems Problem Name Problem Code Onset Date Status Entry Date Provider Comment Standard Description Annotate Shingles 053.9 Active Ousmane MENDIOLA Herpes zoster without mention of complication Medication List Medication Instructions Start Date Stop Date Generic Name NDC Status Provider Patient Instruction ACYCLOVIR 800 MG ORAL TABS 1 tab PO tid x 5 days ACYCLOVIR 56346775035 Active Ousmane MENDIOLA Active BENADRYL 25 MG CAP 1 po q8hr PRN Congestion DIPHENHYDRAMINE HCL 59965763541 Active Ousmane MENDIOLA Active Vital Signs Date Name Value Unit Range Description blood pressure, diastolic 76 mm[Hg] BP [place] blood pressure, systolic 110 mm[Hg] BP sys height E&M 67 [in_us] Bdy height pulse rate E&M 102 /min Heart rate temperature E&M 98.9 [degF] Body temperature weight E&M 108.4 [lb_av] Weight Measured Encounters Code Encounter Date Provider Facility CPT-53702 Level 3 Est. Patient 18:43:55 CDT Ousmane MENDIOLA [facility]
[2019-02-20] MEDS ORDERED: NS IV 1000 ML 1,000 ML IV SCH (07:54)
[2019-02-20] MEDS ORDERED: ONDANSETRON 4 MG/2 ML (SDV) Z0FRAN IVP ONE (08:00)
[2019-02-20] MEDS ORDERED: KETOROLAC 30 MG/ML VIAL IVP ONE (08:00)
[2019-02-20 08:06] LABS: BILIRUBIN,URINE NEGATIVE (NEGATIVE); COLOR,URINE YELLOW; GLUCOSE, URINE (UA) NEGATIVE (NEGATIVE); NITRITE,URINE NEGATIVE (NEGATIVE)
[2019-02-20 08:09] LABS: BASOPHILS % (AUTO) 0 % (0-10); EOSINOPHILS # (AUTO) 0.4 10^3/uL (0.0-0.3); EOSINOPHILS % (AUTO) 5 % (0-10); HEMATOCRIT 40 % (35-52); LYMPHOCYTES # (AUTO) 2.1 X 10^3 (1.0-4.0); LYMPHOCYTES % (AUTO) 29 % (12-44); MEAN CORPUSCULAR HEMOGLOBIN 32 PG (25-34); MEAN CORPUSCULAR HGB CONC 35 G/DL (32-36); MEAN CORPUSCULAR VOLUME 91 FL (80-99); MEAN PLATELET VOLUME 9.7 FL (7.4-10.4); MONOCYTES # (AUTO) 0.4 X 10^3 (0.0-1.0); MONOCYTES % (AUTO) 6 % (0-12); NEUTROPHILS # (AUTO) 4.4 X 10^3 (1.8-7.8); NEUTROPHILS % (AUTO) 60 % (42-75); PLATELET COUNT 240 10^3/uL (130-400); RED CELL DISTRIBUTION WIDTH 11.2 % (10.0-14.5); WHITE BLOOD COUNT 7.3 10^3/uL (4.3-11.0)
[2019-02-20] MEDS ORDERED: METF-397 (08:16)
--- NOTE | 2019-02-20 08:26 | NUR ---
PAIN DOWN TO 4/10. NAUSEA IMPROVED
[2019-02-20 08:29] LABS: ALANINE AMINOTRANSFERASE 16 U/L (0-55); ALBUMIN 4.6 GM/DL (3.2-4.5); ALKALINE PHOSPHATASE 62 U/L (40-136); BILIRUBIN,TOTAL 0.6 MG/DL (0.1-1.0); BUN/CREATININE RATIO 14; CALCIUM 9.5 MG/DL (8.5-10.1); CARBON DIOXIDE 21 MMOL/L (21-32); CHLORIDE 107 MMOL/L (98-107); CREATININE SERUM 0.85 MG/DL (0.60-1.30); GFR ESTIMATED > 60; GLUCOSE 112 MG/DL (70-105); LIPASE 20 U/L (8-78); POTASSIUM 3.6 MMOL/L (3.6-5.0); SODIUM 141 MMOL/L (135-145); TOTAL PROTEIN 7.2 GM/DL (6.4-8.2)
--- NOTE | 2019-02-20 09:13 | NUR ---
PT ABLE TO URINATE, URINE STRAINED NO STONES
[2019-02-20 09:19] LABS: CLARITY,URINE CLEAR; KETONES,URINE NEGATIVE (NEGATIVE); LEUKOCYTE ESTERASE ,URINE NEGATIVE (NEGATIVE); PH,URINE 6 (5-9); PROTEIN,URINE NEGATIVE (NEGATIVE); UROBILINOGEN,URINE NORMAL (NORMAL)
--- NOTE | 2019-02-20 09:53 | ED Back Pain ---
General Chief Complaint: Back Problems Stated Complaint: BACK/ABD/L SIDE PAIN Nursing Triage Note: PT CO OF L FLANK PAIN STARTED AT 0600 THIS AM RATES 10/10 Nursing Sepsis Screen: No Definite Risk Source of Information: Patient Exam Limitations: No Limitations History of Present Illness Date Seen by Provider: Feb 20, 2019 Time Seen by Provider: 07:47 Initial Comments This 24-year-old young lady presents to the emergency room with pain that woke her up this morning a couple hours ago. Pain is in the left lower back, flank, and radiating down to the left groin. She feels a need to urinate often but produces very little urine. She is also been vomiting. She is afebrile. She denies any vaginal symptoms. Her last menstrual period ended about a week ago. She is uncertain when it started. She was recently treated with progesterone to reset her cycles because she suffers with PCOS. She takes metformin for PCOS. She reports her pain as a 10 out of 10. She has no history of renal stones. She denies . Allergies and Home Medications Allergies Coded Allergies: No Known Drug Allergies (Unverified , 02/20/19) Home Medications Ondansetron 4 Mg Tab.rapdis, 4 MG SL Q4H PRN for NAUSEA/VOMITING Prescribed by: MANDY MAHONEY on 02/20/19 1156 Patient Home Medication List Home Medication List Reviewed: Yes Review of Systems Constitutional: no symptoms reported EENTM: no symptoms reported Respiratory: no symptoms reported Cardiovascular: no symptoms reported Gastrointestinal: see HPI Genitourinary: see HPI : No Musculoskeletal: no symptoms reported Skin: no symptoms reported Psychiatric/Neurological: No Symptoms Reported Past Qkdzgxt-Lrirge-Pkrvjd Hx Past Med/Social Hx: Reviewed and Corrections made Patient Social History Alcohol Use: Denies Use Recreational Drug Use: No Smoking Status: Former Smoker Type Used: Cigarettes Recent Foreign Travel: No Contact w/Someone Who Travel: No Recent Infectious Disease Expo: No Recent Hopitalizations: No Past Medical History Surgeries: No Respiratory: No Cardiac: No Neurological: No Last Menstrual Period: Feb 13, 2019 Reproductive Disorders: Yes Female Reproductive Disorders: Polycystic Ovarian Dis Genitourinary: No Gastrointestinal: No Musculoskeletal: No Endocrine: No HEENT: No Cancer: No Psychosocial: No Integumentary: No Blood Disorders: No Physical Exam Vital Signs Vital Signs - First Documented 02/20/19 07:42 Temp 97.9 Pulse 100 Resp 18 B/P (MAP) 138/120 (126) Pulse Ox 97 Capillary Refill : Less Than 3 Seconds Height, Weight, BMI Height: 5'3.00" Weight: 130lbs. oz. 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 II-XII Norm as Tested Skin: Normal Color, Warm/Dry Progress/Results/Core Measures Results/Orders Lab Results Laboratory Tests Test 02/20/19 08:00 02/20/19 09:13 Range/Units White Blood Count 7.3 4.3-11.0 10^3/uL Red Blood Count 4.38 4.35-5.85 10^6/uL Hemoglobin 14.0 11.5-16.0 G/DL Hematocrit 40 35-52 % Mean Corpuscular Volume 91 80-99 FL Mean Corpuscular Hemoglobin 32 25-34 PG Mean Corpuscular Hemoglobin Concent 35 32-36 G/DL Red Cell Distribution Width 11.2 10.0-14.5 % Platelet Count 240 130-400 10^3/uL Mean Platelet Volume 9.7 7.4-10.4 FL Neutrophils (%) (Auto) 60 42-75 % Lymphocytes (%) (Auto) 29 12-44 % Monocytes (%) (Auto) 6 0-12 % Eosinophils (%) (Auto) 5 0-10 % Basophils (%) (Auto) 0 0-10 % Neutrophils # (Auto) 4.4 1.8-7.8 X 10^3 Lymphocytes # (Auto) 2.1 1.0-4.0 X 10^3 Monocytes # (Auto) 0.4 0.0-1.0 X 10^3 Eosinophils # (Auto) 0.4 H 0.0-0.3 10^3/uL Basophils # (Auto) 0.0 0.0-0.1 10^3/uL Sodium Level 141 135-145 MMOL/L Potassium Level 3.6 3.6-5.0 MMOL/L Chloride Level 107 98-107 MMOL/L Carbon Dioxide Level 21 21-32 MMOL/L Anion Gap 13 5-14 MMOL/L Blood Urea Nitrogen 12 7-18 MG/DL Creatinine 0.85 0.60-1.30 MG/DL Estimat Glomerular Filtration Rate > 60 BUN/Creatinine Ratio 14 Glucose Level 112 H 70-105 MG/DL Calcium Level 9.5 8.5-10.1 MG/DL Corrected Calcium 8.5-10.1 MG/DL Total Bilirubin 0.6 0.1-1.0 MG/DL Aspartate Amino Transf (AST/SGOT) 17 5-34 U/L Alanine Aminotransferase (ALT/SGPT) 16 0-55 U/L Alkaline Phosphatase 62 40-136 U/L Total Protein 7.2 6.4-8.2 GM/DL Albumin 4.6 H 3.2-4.5 GM/DL Lipase 20 8-78 U/L Serum Test, Qualitative NEGATIVE NEGATIVE Urine Color YELLOW Urine Clarity CLEAR Urine pH 6 5-9 Urine Specific [place] 1.010 L 1.016-1.022 Urine Protein NEGATIVE NEGATIVE Urine Glucose (UA) NEGATIVE NEGATIVE Urine Ketones NEGATIVE NEGATIVE Urine Nitrite NEGATIVE NEGATIVE Urine Bilirubin NEGATIVE NEGATIVE Urine Urobilinogen NORMAL NORMAL MG/DL Urine Leukocyte Esterase NEGATIVE NEGATIVE Urine RBC (Auto) 5+ H NEGATIVE Urine RBC 25-50 H /HPF Urine WBC RARE /HPF Urine Squamous Epithelial Cells NONE /HPF Urine Crystals NONE /LPF Urine Bacteria NEGATIVE /HPF Urine Casts PRESENT /LPF Urine Hyaline Casts 5-10 H /LPF Urine Mucus NEGATIVE /LPF Urine Yeast FEW H /HPF Urine Culture Indicated YES My Orders Orders - MANDY KINSEY MD Ua Culture If Indicated (02/20/19 07:48) Cbc With Automated Diff (02/20/19 07:54) Comprehensive Metabolic Panel (02/20/19 07:54) Hcg,Qualitative Serum (02/20/19 07:54) Lipase (02/20/19 07:54) Ed Iv/Invasive Line Start (02/20/19 07:54) Ns Iv 1000 Ml (Sodium Chloride 0.9%) (02/20/19 07:54) Ondansetron Injection (Zofran Injectio (02/20/19 08:00) Ketorolac Injection (Toradol Injection) (02/20/19 08:00) Urine Culture (02/20/19 09:13) Ct Abd/Pelvis Wo(Kidney Stone) (02/20/19 10:10) Medications Given in ED Vital Signs/I&O 02/20/19 02/20/19 07:42 12:59 Temp 97.9 Pulse 100 80 Resp 18 18 B/P (MAP) 138/120 (126) 136/88 (104) Pulse Ox 97 97 Blood Pressure Mean: 126 Progress Progress Note #1: Time: 09:49 Progress Note Patient was seen and examined upon arrival. She was treated with Toradol and Zofran with excellent improvement in symptoms. She was unable to produce a sufficient urine specimen initially. She was hydrated with IV normal saline 1 L. She was unable to produce a urine specimen. UA is pending at this time. Blood work was unremarkable. The patient is comfortable presently. Progress Note #2: Progress Note Patient was discharged in a much more comfortable state. There was a calculus in the bladder which likely represents a recently passed ureteral stone. There is also some slight dilatation of the left ureter to suggest a recent stone. Diagnostic Imaging Diagonstic Imaging: CT Plain Films/CT/US/NM/MRI: abdomen, pelvis Comments CT abdomen and pelvis viewed by me and report reviewed. I also discussed with the radiologist. It appears there may be a tiny stone in the bladder but no stone in the UVJ. There also appears to be some proximal hydroureter on the left. These findings were not yet added to the report below but seem consistent with a recently passed left ureteral stone. See report below: NAME: TERESA WINSTON [facility] REC#: [id number] PT STATUS: REG ER : 1995 PHYSICIAN: MANDY KINSEY MD ADMIT DATE: 02/20/19/ER Draft Date of Exam:02/20/19 CT ABD/PELVIS WO(KIDNEY STONE) PROCEDURE: CT urinary tract, rule out kidney stone. TECHNIQUE: Multiple contiguous axial images were obtained through the abdomen and pelvis without the use of intravenous contrast. Auto Exposure Controls were utilized during the CT exam to meet ALARA standards for radiation dose reduction. INDICATION: Mid abdominal pain. FINDINGS: Lung bases are clear. Liver appears normal. Gallbladder is present. Pancreas appears normal. Spleen is not enlarged. Adrenals are normal. Kidneys appear normal. Appendix is normal. Small bowel is not dilated. There is large amount of stool in the ascending colon. Ovaries appear normal. Uterus appears normal. Urinary bladder is normal. There is no intraperitoneal free air or free fluid. IMPRESSION: No acute abnormality is seen in the abdomen or pelvis. Dictated on workstation # [id number] Dict: 02/20/19 1051 Trans: 02/20/19 1103 [id number] Interpreted by: RAYNA SIN MD Departure Impression Primary Impression: Left ureteral stone Additional Impressions: Left sided abdominal pain Nausea and vomiting Qualified Codes: R11.2 - Nausea with vomiting, unspecified Disposition: 01 HOME, SELF-CARE Condition: Improved Departure-Patient Inst. Decision time for Depature: 11:50 Referrals: NO,LOCAL PHYSICIAN (PCP) Primary Care Physician Patient Instructions: Kidney Stone Diet, Kidney Stones in Adults Add. Discharge Instructions: Drink plenty of clear liquids. Strain your urine and bring any stones collected to your follow-up appointment. Please follow-up with your primary care provider in about a week. For pain, you may take ibuprofen up to 600 mg every 6 hours as needed and/or Tylenol (acetaminophen) up to 1000 mg every 6 hours as needed. Use Zofran as prescribed if you have any further nausea or vomiting. Return to care if you worsening symptoms. All discharge instructions reviewed with patient and/or family. Voiced understanding. Scripts Ondansetron (Ondansetron Odt) 4 Mg Tab.rapdis 4 MG SL Q4H PRN for NAUSEA/VOMITING, #10 TAB Prov: MANDY KINSEY MD 02/20/19 MANDY KINSEY MD Feb 20, 2019 09:53
[2019-02-20 09:58] LABS: BACTERIA,URINE NEGATIVE /HPF; RBC,URINE 25-50 /HPF; WBC,URINE RARE /HPF; YEAST,URINE FEW /HPF
--- NOTE | 2019-02-20 11:04 | Diagnostic Imaging Report ---
PROCEDURE: CT urinary tract, rule out kidney stone. TECHNIQUE: Multiple contiguous axial images were obtained through the abdomen and pelvis without the use of intravenous contrast. Auto Exposure Controls were utilized during the CT exam to meet ALARA standards for radiation dose reduction. INDICATION: Mid abdominal pain. FINDINGS: Lung bases are clear. Liver appears normal. Gallbladder is present. Pancreas appears normal. Spleen is not enlarged. Adrenals are normal. Kidneys appear normal. Appendix is normal. Small bowel is not dilated. There is large amount of stool in the ascending colon. Ovaries appear normal. Uterus appears normal. Urinary bladder is normal. There is no intraperitoneal free air or free fluid. IMPRESSION: No acute abnormality is seen in the abdomen or pelvis. Dictated by: Dictated on workstation # [id number]
[2019-02-20] MEDS ORDERED: ONDA4TAB11 SL (11:56)
[2019-02-20 12:59] VITALS: BP 136/88
== END 2019-02-20 12:59 | disposition home or self-care (01) ==
LOC: ER 07:38
DX: N20.1 Calculus of ureter (principal); Z87.448 Personal history of other diseases of urinary system; Z87.891 Personal history of nicotine dependence
CPT/HCPCS: 36415; 74176; 80053; 81000; 83690; 84703; 85025; 87088